=== PATIENT | female | born 1950 | race African-American/Black ===

== ENCOUNTER 2016-12-06 14:34 | Outpatient (CLI) | payer MEDICARE, OTHER | END 2016-12-06 14:35 | disposition home or self-care (01) | DX: E11.9 Type 2 diabetes mellitus without complications (principal); N05.9 Unspecified nephritic syndrome with unspecified morphologic changes ==

== ENCOUNTER 2017-01-03 11:58 | Outpatient (CLI) | payer MEDICARE, OTHER ==
[2017-01-03] MEDS ORDERED: IOPAMIDOL-300 50 ML VIAL PO ONE (13:12)
== END 2017-01-03 11:59 | disposition home or self-care (01) ==
DX: Z85.528 Personal history of other malignant neoplasm of kidney (principal)
CPT/HCPCS: 74150; Q9967

== ENCOUNTER 2017-05-12 19:33 | Outpatient (CLI) | payer MEDICARE, OTHER ==
--- NOTE | 2017-05-14 09:16 | Ultrasound Report ---
TRANSABDOMINAL AND TRANSVAGINAL PELVIC ULTRASOUND WITH TRANSVAGINAL SCAN: 05/12 CLINICAL HISTORY: Patient has postmenopausal bleeding. TECHNIQUE: Transabdominal pelvic ultrasound performed for global evaluation. Transvaginal pelvic ultrasound performed for detailed evaluation. Real-time scanning performed and static images obtained. FINDINGS: Uterus measures 7.4 x 3.6 x 5.3 cm for a volume of 75.1 mL. The uterus is retroverted and retroflexed. Endometrial echo complex is markedly enlarged with a diameter of 20 mm. This thickening of the endometrial complex is abnormal without evidence of enhanced vascularity. Primary considerations for this finding in postmenopausal female is endometrial hyperplasia or endometrial carcinoma. Findings are equivocal in regard to a fibroid along the left side of the inferior myometrium. At present, it measures 1.3 x 1.2 x 1.1 cm and lies adjacent to the posterior aspect of the inferior endometrial complex. Right ovary measures 1.5 x 1.5 x 2.4 cm for a volume of 2.8 mL. Left ovary was not seen. IMPRESSION: 1. UTERUS SHOWS EVIDENCE OF POSTMENOPAUSAL ATROPHY AND IS MILDLY RETROVERTED/ RETROFLEXED. SIGNIFICANTLY THICKENED ENDOMETRIUM IS NOTED WITHOUT ENHANCED VASCULAR FLOW. PRIMARY CONSIDERATIONS INCLUDE ENDOMETRIAL HYPERPLASIA VERSUS ENDOMETRIAL CARCINOMA. OTHER POSSIBILITY IS ENDOMETRIAL HYPERPLASIA SECONDARY TO TAMOXIFEN EFFECT IF PATIENT HAS A PAST HISTORY OF TAKING THIS MEDICATION. 2. EQUIVOCAL FINDING IS NOTED IN REGARD TO A TINY FIBROID ALONG THE LEFT POSTERIOR INFERIOR MYOMETRIUM. IF PRESENT, IT MEASURES 1.3 X 1.2 X 1.1 CM. 3. RIGHT OVARY IS VISUALIZED AND SHOWS NORMAL POSTMENOPAUSAL ATROPHY. LEFT OVARY WAS NOT VISUALIZED. COMMENT: Dr. Zambrano notified Aleja Ocasio's nurse, Cherri, of the above findings and recommendations. This was done on 05/13/2017 at 3:05 p.m. JOB #: [id number] EXT JOB #: [id number] ANAID
== END 2017-05-12 19:34 | disposition home or self-care (01) ==
LOC: DI 19:33
PROVIDERS: ATTEND Nurse Practitioner Family
DX: R93.8 Abnormal findings on diagnostic imaging of other specified body structures (principal); N85.8 Other specified noninflammatory disorders of uterus
CPT/HCPCS: 76830; 76856

== ENCOUNTER 2017-05-20 07:36 | Outpatient (CLI) | payer MEDICARE, OTHER ==
[2017-05-20 14:18] LABS: HEMOGLOBIN A1C 0.62 g/dL
[2017-05-20 14:26] LABS: CALCIUM 9.6 mg/dL (8.5-10.3); CREATININE 1.1 mg/dL (0.4-1.0); POTASSIUM 3.9 mmol/L (3.5-5.0)
== END 2017-05-20 07:37 | disposition home or self-care (01) ==
LOC: LAB.N 07:36
PROVIDERS: ATTEND Internal Medicine Nephrology
DX: N05.9 Unspecified nephritic syndrome with unspecified morphologic changes (principal); E11.9 Type 2 diabetes mellitus without complications
CPT/HCPCS: 36415; 80048; 83036

== ENCOUNTER 2017-12-25 11:22 | Outpatient (CLI) | payer OTHER, MEDICARE ==
--- NOTE | 2017-12-26 10:15 | XRAY Report ---
TWO VIEW LEFT HAND: 12/25/2017 CLINICAL INDICATION: Tenosynovitis. FINDINGS: Frontal and lateral views of the left hand demonstrate no evidence of fracture or dislocation. Mild osteoarthritis is present in the first carpometacarpal joint and interphalangeal joints. No foreign body is seen in the soft tissues. IMPRESSION: MILD OSTEOARTHRITIS. TD: 12/26/2017 10:15
== END 2017-12-25 11:23 | disposition home or self-care (01) ==
LOC: DI 11:22
PROVIDERS: ATTEND Nurse Practitioner Family
DX: M19.042 Primary osteoarthritis, left hand (principal)

== ENCOUNTER 2018-05-25 13:10 | Outpatient (CLI) | payer MEDICARE, OTHER ==
[2018-05-25 19:23] LABS: HB2 TOTAL 15.5 g/dL; HEMOGLOBIN A1C 0.75 g/dL; HEMOGLOBIN A1C % 6.6 % (4.6-6.2)
[2018-05-25 19:50] LABS: ALBUMIN 3.5 g/dL (3.2-5.5); ALBUMIN/GLOBULIN RATIO 1.1 (1.0-2.2); ALKALINE PHOSPHATASE 66 IU/L (42-121); ALT ALANINE AMINOTRANSFERASE 22 IU/L (10-60); AST ASPARTATE AMINOTRANSFERASE 26 IU/L (10-42); BILIRUBIN,TOTAL 0.9 mg/dL (0.2-1.0); BUN - BLOOD UREA NITROGEN 24 mg/dL (6-20); CALCIUM 8.9 mg/dL (8.5-10.3); CARBON DIOXIDE - CO2 27 mmol/L (21-32); CHLORIDE 107 mmol/L (101-111); CHOL/HDL RATIO 5.8 (<4.4); CHOLESTEROL 181 mg/dL; GFR - MDRD 67 (>89); GLUCOSE 105 mg/dL (70-100); HDL CHOLESTEROL 31 mg/dL; LDL CHOLESTEROL,CALCULATED 114 mg/dL; LDL/HDL RATIO 3.7 (<4.4); SODIUM 140 mmol/L (135-145); TOTAL PROTEIN 6.6 g/dL (6.7-8.2); VLDL CHOLESTEROL 36 mg/dL
== END 2018-05-25 13:11 | disposition home or self-care (01) ==
LOC: LAB.N 13:10
PROVIDERS: ATTEND Nurse Practitioner Family
DX: E11.9 Type 2 diabetes mellitus without complications (principal); I10 Essential (primary) hypertension; C64.2 Malignant neoplasm of left kidney, except renal pelvis; E78.1 Pure hyperglyceridemia
CPT/HCPCS: 36415; 80053; 80061; 83036; 83721

== ENCOUNTER 2018-06-07 09:10 | Outpatient (CLI) | payer MEDICARE, OTHER | END 2018-06-07 09:11 | disposition home or self-care (01) | LOC: DI 09:10 | PROVIDERS: ATTEND Nurse Practitioner Family | DX: R01.1 Cardiac murmur, unspecified (principal); I10 Essential (primary) hypertension | CPT/HCPCS: 93306 ==

== ENCOUNTER 2018-08-25 15:52 | Outpatient (CLI) | payer MEDICARE, OTHER ==
--- NOTE | 2018-08-27 11:40 | Mammography Report ---
Reason: SCREENING MAMMO Procedure Date: 08/25/2018 Accession Number: [id number] / [id number] Procedure: MGN - Screening Mammo Dig Bilat CPT Code: FULL RESULT: EXAM: Screening Mammo Dig Bilat DATE: 08/25/2018 4:08 PM CLINICAL HISTORY: 68-year-old female for screening. TECHNIQUE: Bilateral CC and MLO views were obtained. COMPARISON: 06/20/2014, 05/12/2013. FINDINGS: The breasts demonstrate heterogeneously dense fibroglandular parenchyma bilaterally. No suspicious masses, clustered microcalcifications, or regions of architectural distortion are identified. IMPRESSION: Negative examination RECOMMENDATION: Routine annual screening unless otherwise clinically indicated. BIRADS CATEGORY 1: Negative STANDARD QUALIFYING STATEMENTS: 1. This examination was reviewed with the aid of Computer-Aided Detection (CAD). 2. A negative or benign imaging report should not delay biopsy if clinically suspicious findings are present. Consider surgical consultation if warrented. More than 5% of cancers are not identified by imaging. 3. Dense breasts may obscure an underlying neoplasm. 4. This examination was reviewed without the aid of 3D breast imaging (tomosynthesis).
== END 2018-08-25 15:53 | disposition home or self-care (01) ==
LOC: DI.N 15:52
DX: Z12.31 Encounter for screening mammogram for malignant neoplasm of breast (principal)
CPT/HCPCS: 77067

== ENCOUNTER 2018-08-25 20:18 | Outpatient (CLI) | payer MEDICARE, OTHER ==
--- NOTE | 2018-08-25 23:16 | Ultrasound Report ---
Reason: HX OF RENAL CELL CARCINOMA Procedure Date: 08/25/2018 Accession Number: [id number] / [id number] Procedure: US - Retroperitoneal CPT Code: FULL RESULT: EXAM: RENAL ULTRASOUND EXAM DATE: 08/25/2018 08:31 PM. CLINICAL HISTORY: HX OF RENAL CELL CARCINOMA. COMPARISON: RETROPERITONEAL LIMITED 02/08/2016 9:30 AM ABDOMEN W/O 01/03/2017 1:01 PM. TECHNIQUE: Real-time scanning was performed with static images obtained. FINDINGS: Right Kidney: 9.5 x 5.9 x 5.7 cm. Normal echotexture with no stones, contour-deforming masses, or hydronephrosis. Incidental 1.2 cm simple cyst. Left Kidney: 8.6 x 7.6 x 7.2 cm. Postoperative changes of left partial nephrectomy. Incidental 1.4 cm simple cyst in the upper pole. Bladder: Bilateral jets seen. The prevoid bladder volume was 57 cc. The patient was unable to void at this volume. Other: None. IMPRESSION: Postoperative changes of left partial nephrectomy. No solid renal mass identified. RADIA
== END 2018-08-25 20:19 | disposition home or self-care (01) ==
LOC: DI 20:18
PROVIDERS: ATTEND Urology
DX: Z85.528 Personal history of other malignant neoplasm of kidney (principal); Z90.5 Acquired absence of kidney
CPT/HCPCS: 76770

== ENCOUNTER 2019-11-16 13:09 | Outpatient (CLI) | payer MEDICARE, OTHER ==
[2019-11-16 13:50] LABS: BASOPHILS # (AUTO) 0.1 10^3/uL (0.0-0.1); BASOPHILS % (AUTO) 0.5 %; EOSINOPHILS # (AUTO) 0.2 10^3/uL (0.0-0.7); EOSINOPHILS % (AUTO) 1.5 %; HGB - HEMOGLOBIN 13.8 g/dL (12.0-16.0); LYMPHOCYTES # (AUTO) 4.1 10^3/uL (1.5-3.5); MEAN CORPUSCULAR HGB CONC 32.6 g/dL (32.0-36.0); MEAN CORPUSCULAR VOLUME 82.8 fL (81.0-99.0); MEAN PLATELET VOLUME 9.5 fL (7.9-10.8); MONOCYTES # (AUTO) 0.5 10^3/uL (0.0-1.0); MONOCYTES % (AUTO) 4.6 %; NEUTROPHILS # (AUTO) 6.7 10^3/uL (1.5-6.6); NEUTROPHILS % (AUTO) 57.9 %; PLT - PLATELET COUNT 316 10^3/uL (130-450); RED BLOOD COUNT 5.11 10^6/uL (4.20-5.40); RED CELL DISTRIBUTION WIDTH 14.9 % (12.0-15.0); WHITE BLOOD COUNT 11.6 x10^3/uL (4.8-10.8)
[2019-11-16 14:08] LABS: ALBUMIN 4.1 g/dL (3.2-5.5); ALBUMIN/GLOBULIN RATIO 1.2 (1.0-2.2); BILIRUBIN,TOTAL 0.8 mg/dL (0.2-1.0); CALCIUM 9.7 mg/dL (8.5-10.3); CREATININE 1.1 mg/dL (0.4-1.0); TOTAL PROTEIN 7.4 g/dL (6.7-8.2)
== END 2019-11-16 13:10 | disposition home or self-care (01) ==
LOC: LAB 13:09
PROVIDERS: ATTEND Obstetrics & Gynecology
DX: Z01.818 Encounter for other preprocedural examination (principal); N95.0 Postmenopausal bleeding; E11.9 Type 2 diabetes mellitus without complications
CPT/HCPCS: 36415; 80053; 85025; 93005

== ENCOUNTER 2019-11-17 09:14 | Day surgery (SDC) | payer MEDICARE, OTHER ==
--- NOTE | 2019-11-16 15:22 | CONSULTATION NOTE ---
Consultation Report: Anesthesia consult requested by the surgeon. I saw this patient in the pre anesthesia office. 69 year old female without any signs of distress. She reports history of diabetes since last year. Her ECHO from 2018 looks good without any wall motion abnormalities and any valvular dysfunction. EF is 55-60%. She denies any history of chest pain/pressure or SOB at rest or with exertion. She denies any history of heart attacks. She takes insulin, a statin and amlodipine for her BP. SHe also has a history of renal cancer for which she has had a surgical removal of renal mass.
--- NOTE | 2019-11-17 07:40 | HISTORY & PHYSICAL EXAMINATION ---
HPI - History of Present Illness HPI Comment/Other: CC: WWE HPI: Pt is new to this clinic and is here for a WWE. Pt states her last WWE/biopsy was inconclusive and she was told by her provider in [place] that she has a thickened endometrium so she would like a second opinion. Pt reports she is returning to [place], [place] end of December and sees Dr. Tesfaye down there. ...................................................................EMELY Valdez November 16, 2019 11:04 AM Ms Ryan is a 69 yo -->3 female with history of postmenopausal bleeding. She reports that she had some spotting in April/May 2019 while in [place]. She underwent a pelvic us which showed a thickened EMS. US not available to this clinic at present. She underwent an uncomfortable EMB but was told the results were inadequate. She moved back to [place] and startedhaving soem heavier PMB. She has beenusing as much as 4 pads per day. Review of [facility] records show a thickened EMS on us in 2017 with no follow-up. Otherwise without symptoms. Has a hx of renal cancer for which she has undergone a partial nephrectomy. Also with DM, which was improved after her nephrectomy. She reports that she was admitted to in-patient care in [place] with BG levels over 1000. She is currently using 10 units of insulin nightly as well as metformin in the am and at noon. Reports HbA1c improved from about 11% to 6%. She is very proactive with her blood pressure and BG monitoring. She presents a log book showing daily BPs range from 110-128/61-85. BG ranges from 87-107 Allergies: * CINNAMON (Critical) Medications: LANTUS 100 UNIT/ML SUBCUTANEOUS SOLUTION (INSULIN GLARGINE) Take ten units subcutaneously nightly; Route: SUBCUTANEOUS FLUTICASONE PROPIONATE 50 MCG/ACT NASAL SUSPENSION (FLUTICASONE PROPIONATE) Take one spray in each nostril daily; Route: NASAL LISINOPRIL 10 MG ORAL TABLET (LISINOPRIL) Take one tab by mouth daily; Route: ORAL METFORMIN HCL 500 MG ORAL TABLET (METFORMIN HCL) Take one tab by mouth two times a day; Route: ORAL AMLODIPINE BESYLATE 10 MG ORAL TABLET (AMLODIPINE BESYLATE) Take one tab by mouth daily; Route: ORAL ROSUVASTATIN CALCIUM 10 MG ORAL TABLET (ROSUVASTATIN CALCIUM) TAke one tab by mouth daily at bedtime; Route: ORAL HYDROCHLOROTHIAZIDE 25 MG ORAL TABLET (HYDROCHLOROTHIAZIDE) Take one-half tablet by mouth every morning; Route: ORAL CETIRIZINE HCL 10 MG ORAL TABLET (CETIRIZINE HCL) One tablet daily; Route: ORAL Problems: Postmenopausal bleeding (ICD-627.1) (EOS27-G00.0) Systolic heart murmur (ICD-785.2) (EUY03-Z35.1) Abnormal cervical Pap ASCUS (atypical squamous cells undetermined significance) (ICD-795.01) (XZY89-M29.610) Polyp of cervix uteri (ICD-622.7) (HSZ29-Q78.1) Diabetes, Type 2 (ICD-250.00) (QEN77-G95.9) Renal cell carcinoma, left kidney (ICD-189.0) (OLX08-T09.2) Hypertension (ICD-401.9) (NOQ52-U27) Hypertriglyceridemia (ICD-272.1) (AQN76-J36.1) Diverticulosis (ICD-562.10) (LUO63-J19.90) Obesity (ICD-278.00) (MBS41-D91.9) Thoracic disc disease (ICD-722.51) (XLA88-C27.84) Allergic rhinitis (ICD-477.9) (GUZ64-D11.9) Acquired absence of kidney (ICD-V45.73) (RLZ95-F56.5) Acute postoperative renal failure (ICD-997.5) (VFC59-G18.0) Family History Summary: Family History of [place] female <65 for Mother - Entered On: 11/16/2019 Family History of [place] male <55 for Father - Entered On: 11/16/2019 Family History Reviewed: 11/16/2019 Family History of Heart Disease for Mother - Entered On: 07/23/2015 Family History of Diabetes for Mother - Entered On: 07/23/2015 Social History Summary: Patient currently smokes every day. Patient has never used smokeless tobacco. Passive Smoke: Y Alcohol Use: N Drug Use: N HIV/High Risk: N Regular Exercise: N Lives in [facility] with her daughter and grandson. Brother currently staying with her. in the last year after 47 yrs of marriage Son murdered in race driven hate crime in 1988 T: 1/2 ppd-1 ppd E: none D: none Safe at home Social History Reviewed: 11/16/2019 Previous Social History: Patient currently smokes every day. Patient has never used smokeless tobacco. Passive Smoke: Y Alcohol Use: N Drug Use: N HIV/High Risk: N Regular Exercise: N Risk Factors: Smoked Tobacco Use: Current every day smoker Cigarettes: Yes -- 1/2 pack(s) per day, Year Started: 1966 Years Smoked: 44 Smokeless Tobacco Use: Never Passive Smoke Exposure: yes HIV High Risk Behavior: no Caffeine Use: 1 drinks per day Exercise: no Seatbelt Use: 100 % Sun Exposure: occasionally Alcohol Use: no Drug Use: no Questionnaire Would you like to become in the next year? NA postmenopause Vital Signs: Patient Profile: 69 Years Old Female LMP: 11/08/2019 Height: 58.25 inches Weight: 180 pounds BMI: 37.43 BP sittin / 76 Cuff size: regular Vitals Entered By: EMELY Valdez (November 16, 2019 11:04 AM) Meds Reviewed: Done Allergies Reviewed: Done Menstrual History: LMP (date): 11/08/2019 Menstrual flow: 3 days Past Medical History: Reviewed history from 08/17/2018 and no changes required: Current Problems: Diabetes, Type 2 (ICD-250.00) (FZA65-M69.9) Renal cell carcinoma, left kidney (ICD-189.0) (UCW49-G26.2) Hypertension (ICD-401.9) (QBO73-C94) Hypertriglyceridemia (ICD-272.1) (IDH97-E51.1) Diverticulosis (ICD-562.10) (MWQ53-C04.90) Obesity (ICD-278.00) (HUZ84-Q31.9) Thoracic disc disease (ICD-722.51) (CGU93-C90.84) Allergic rhinitis (ICD-477.9) (EFO39-U25.9) Acquired absence of kidney (ICD-V45.73) (ATQ65-I04.5) Acute postoperative renal failure (ICD-997.5) (ZPQ61-R49.0) Polyp of cervix uteri (ICD-622.7) (EXN96-B07.1) Melanocytic nevi of trunk (ICD-216.5) (ISG91-B58.5) Past Surgical History: Reviewed history from 07/19/2016 and no changes required: ?ovarian cyst removed 27% left kidney removed on 07/08/2016 for CA OB Initial Intake Information Race: Black or Marital status: Menstrual Hx/EDC LMP (date): 11/08/2019 Menstrual flow 3 days Past History : 4 Living Children: 3 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 Flowsheet View for Follow-up Visit Weight: 180 Blood pressure: 118 / 76 Smokin/2 Physical Constitutional: alert, no acute distress. Skin: normal color. Head: atraumatic, normocephalic. Cardiovascular: RRR. Respiratory: no respiratory distress, clear to auscultation. Abdomen: nondistended, nontender, no guarding. Neurologic: normal. Psych: affect and mood appropriate, normal interaction, good eye contact. Impression & Recommendations: Problem # 1: Postmenopausal bleeding (ICD-627.1) (VNW94-P28.0) Orders: PRE OP -16137 (CPT-83430) 75180 OV Est Detailed (CPT-19026) Reviewed us in 2017 that showed concerning findings and patient actively bleeding High concern for endometrial hyperplasia vs malignancy Poorly tolerated and inadequate EMB in [place] Recommend urgent hysteroscopy D&C Able to add patient on the 11/17/19 schedule Sent directly to Anesthesia consult Provided with misoprostol 200 mcg PV to use prior to procedure Reviewed risks/benefits/alternative of hysteroscopy D&C/polypectomy We discussed risks, benefits, alternatives. Reviewed all surgical procedures carry risks of bleeding, infection, and damage nearby tissue and organs. Risks include, but are not limited to uterine perforation which may require additonal procedures to contain bleeding, incompletion of the procedure, and blood transfusion. Discussed the risk of infection with blood transfusion is relatively low. Risk of HIV is 1 in 2 million nationwide, risk of hepatitis is 1/million nationwide. Reviewed for possibility of transfusion reaction and possible management with medications. She is provided consent for blood transfusion. Scheduled for anesthesia consutl directly after clinic visit Written informed consent obtained Patient Portal: [id number] PMH/PSH - Past Medical History Cardiovascular: positive: Hypertension, High cholesterol, [place], Valve disorder Respiratory: positive: None Endocrine/Autoimmune: positive: Type 2 diabetes GI: positive: Chronic constipation TUTORING CLINICIAN: positive: None : positive: None HEENT: positive: Chronic vision loss Psych: positive: None, Other Musculoskeletal: positive: Osteoarthritis, Chronic back pain, Other Derm: positive: Other MRSA Hx?: No Social & Family Hx - Social History Does the pt smoke?: Yes Smoking Status: Current every day smoker Does the pt drink ETOH?: No Does the pt have substance abuse?: No Meds/Allgy - Home Medications Home Medications: Ambulatory Orders Medication Instructions Recorded Confirmed Hydrochlorothiazide 12.5 mg PO DAILY 09/02/14 11/16/19 Metformin HCl 500 mg PO BIDWM 09/02/14 11/16/19 Multivitamin [Multiple Vitamins] 1 tab PO DAILY 09/28/15 11/16/19 lisinopriL [Lisinopril] 10 mg PO DAILY 09/28/15 11/16/19 Amlodipine Besylate 10 mg PO DAILY 11/16/19 11/16/19 Fluticasone [Flonase] 1 sprays GRETEL DAILY PRN 11/16/19 11/16/19 Garlic 1 each PO DAILY 11/16/19 11/16/19 Insulin Glargine [Lantus Solostar] 10 unit SQ QPM 11/16/19 11/16/19 [place]-3/Dha/Epa/Fish Oil [[place] 3 1 each PO DAILY 11/16/19 11/16/19 500 Softgel] Rosuvastatin Calcium 10 mg PO QPM 11/16/19 11/16/19 - Allergies Allergies/Adverse Reactions: Allergies Allergy/AdvReac Type Severity Reaction Status Date / Time cinnamon [Cinnamon] Allergy Anaphylaxis Verified 07/29/16 20:27 contact metal agent AdvReac Hives Verified 07/29/16 20:27
[~2019-11-17 09:14] MED LIST: ACETAMINOPHEN 1,000 MG/100 ML 100 ML IV ONE; GABAPENTIN 400 MG CAPSULE ONE
[2019-11-17] MEDS ORDERED: ONDANSETRON 4 MG/2 ML VIAL IVP ONE (09:15)
[2019-11-17] MEDS ORDERED: ePHEDrine 50 MG/ML VIAL IVP ONE (09:15)
[2019-11-17] MEDS ORDERED: MIDAZOLAM 2 MG/2 ML VIAL IVP ONE (09:15)
[2019-11-17] MEDS ORDERED: DEXAMETHASONE 4 MG/ML VIAL IVP ONE (09:15)
[2019-11-17] MEDS ORDERED: fentaNYL 100 MCG/2 ML VIAL IVP ONE (09:15)
[2019-11-17] MEDS ORDERED: LACTATED RINGERS 1,000 ML IV ONE (09:18)
--- NOTE | 2019-11-17 09:55 | ANESTHESIA ---
Pre-Anesthesia VS, & Labs - Diagnosis Thickened endometrium - Procedure hysterscopy, myosure D&C Vital Signs: Temp Pulse Resp BP Pulse Ox 36.3 C L 86 12 116/64 97 11/17/19 09:18 11/17/19 09:18 11/17/19 09:18 11/17/19 09:18 11/17/19 09:18 Height 4 ft 11 in Weight (kg) 81 kg Body Mass Index 37.5 - NPO >8 hours - Is Patient ?: No - Lab Results Lab results reviewed: Yes Home Medications and Allergies Home Medications: Ambulatory Orders Amlodipine Besylate 10 mg PO DAILY 11/16/19 Fluticasone [Flonase] 1 sprays GRETEL DAILY PRN 11/16/19 Garlic 1 each PO DAILY 11/16/19 Insulin Glargine [Lantus Solostar] 10 unit SQ QPM 11/16/19 [place]-3/Dha/Epa/Fish Oil [[place] 3 500 Softgel] 1 each PO DAILY 11/16/19 Rosuvastatin Calcium 10 mg PO QPM 11/16/19 Hydrochlorothiazide 12.5 mg PO DAILY 09/02/14 Metformin HCl 500 mg PO DAILY 09/02/14 Multivitamin [Multiple Vitamins] 1 tab PO DAILY 09/28/15 lisinopriL [Lisinopril] 10 mg PO DAILY 09/28/15 Amlodipine Besylate 10 mg PO DAILY 11/16/19 Fluticasone [Flonase] 1 sprays GRETEL DAILY PRN 11/16/19 Garlic 1 each PO DAILY 11/16/19 Insulin Glargine [Lantus Solostar] 10 unit SQ QPM 11/16/19 [place]-3/Dha/Epa/Fish Oil [[place] 3 500 Softgel] 1 each PO DAILY 11/16/19 Rosuvastatin Calcium 10 mg PO QPM 11/16/19 Allergies/Adverse Reactions: Allergies Allergy/AdvReac Type Severity Reaction Status Date / Time cinnamon [Cinnamon] Allergy Anaphylaxis Verified 07/29/16 20:27 contact metal agent AdvReac Hives Verified 07/29/16 20:27 Anes History & Medical History - Anesthetic History Anesthesia Complications: reports: No previous complications - Medical History Cardiovascular: reports: Hypertension, High cholesterol Pulmonary: reports: None Gastrointestinal: reports: Chronic constipation Urinary: reports: Other (Left partial nephrectomy for cancer) Neuro: reports: None Musculoskeletal: reports: Osteoarthritis, Chronic back pain, Other Endocrine/Autoimmune: reports: Type 2 diabetes Blood Disorders: reports: None Skin: reports: Other Smoking Status: Current every day smoker (1/2-1pk per day) Psychosocial: reports: No issues indicated - Surgical History Urologic: Nephrectomy (Left partial nephrectomy) Results - EKG Results EKG Comparison: Reviewed EKG, Normal EKG - Echo Results Echo Results: Report reviewed Exam General: Alert, Oriented x3, Cooperative, No acute distress Dental: WNL Mouth Openin Fingerbreadth Neck Mobility: Normal Mallampati classification: III Thyromental Distance: 4-6 cm Respiratory: Lungs clear, Normal breath sounds, No respiratory distress, No accessory muscle use Cardiovascular: Regular rate, Normal S1, Normal S2, No murmurs Mental/Cognitive Status: Alert/Oriented X3, Normal for patient Plan Anesthesia Type: General Consent for Procedure(s) Verified and Reviewed: Yes Code Status: Attempt Resuscitation ASA classification: 2-Mild systemic disease Is this case an emergency?: No
[2019-11-17] MEDS ORDERED: LIDOCAINE 1%-EPI 1:100000 20 ML MDV ONE (10:26)
[2019-11-17] MEDS ORDERED: LIDOCAINE 1%-EPI 1:100000 30 ML MDV SUBQ ONE ×2 (11:22)
[2019-11-17] MEDS ORDERED: KETOROLAC 30 MG/ML VIAL IVP PRN (11:56)
[2019-11-17] MEDS ORDERED: oxyCODONE 5 MG TABLET PO PRN (11:56)
--- NOTE | 2019-11-17 12:02 | OPERATIVE REPORT ---
Operative Report - General Procedure Date: 11/17/19 Planned Procedure: Hysteroscopy D&C and possible polypectomy vs myomectomy Pre-Op Diagnosis: Postmenopausal bleeding and thickened endometrium Procedure Performed: Hysteroscopy D&C and polypectomy Post Op Diagnosis: Multple endometrail polyps and nodular implants - Procedure Note Primary Surgeon: Salima Wilson MD Anesthesia Technique: General LMA Pathology: Uterine contents IV Fluids (mL): 500 Estimated Blood Loss (mL): 5 Urine Output (mL): 100 Indications: Patient is a 69 yo with 3 years history of thickened endometrium and worsening postmenopausal bleeding. Had undergone endometrial biopsy at an outside facility. Patient reports it returned with insufficient tissue. She is here for hysteroscopic exploration and endometrial sampling. Findings: Thick gelatinous blood released from uterine cavity with passage of sound. Uterus sounds to 9 cm. Multiple endometrial polyps with a central large polyp and 3+ peripheral polyps. Nodular implants on right anterolateral aspect of the uterine cavity wall resistant to excision with morcellator. Additional nodular implants on left aterolateral aspect of cavity. Complications: none - Other Other Information/Narrative: Risks benefits and alternatives to the procedure were reviewed. Consent was again confirmed. Patient was taken to the operating room where she underwent general anesthesia. She was positioned in dorsolithotomy position with legs resting in yellowfin stirrups. She was prepped and draped in the usual sterile fashion. Preoperative antibiotics were not indicated. Preoperative checklist was performed. Exam under anesthesia was performed. Speculum was placed in the vagina and the cervix was visualized. Single-tooth tenaculum was placed at the anterior cervical lip. Paracervical block was administered using a total of 20 cc of 1% lidocaine with epinephrine was injected at the 4:00 and 8:00 positions lateral to the portio of the cervix. The cervical os was serially dilated with Hegar dilators to accommodate the caliber of the diagnostic hysteroscope. Uterus sounded to 9 cm. Passage of thick, tar lick blood products passed from cervix with removal of uterine ssound. The hysteroscope was inserted and findings were noted as above. The hysteroscopic morcellator was inserted through the operative port. The intrauterine polyps were morcellated under direct visualization. Hysteroscope was removed. Sharp curettage D&C was performed with sharp curette in an attempt to loosen nodule. Hysteroscope was reinserted and additonal attempt to smaple nodule was performed. Most of the right anterolateral nodule was removed. The left sided nodule remains in place. Uterine cavity was smooth at close of the procedure save a residual nodular implants. All instruments were removed from the uterus. Tenaculum was removed. Tenaculum sites were noted to be hemostatic. All instruments were removed from the vagina. Procedure was well-tolerated without complication. Fluid deficit: 550 cc NS
[2019-11-17] MEDS ORDERED: oxyCODONE 5 MG TABLET ONE (13:01)
[2019-11-17 13:24] VITALS: BP 117/73
== END 2019-11-17 09:15 | disposition home or self-care (01) ==
LOC: SDS 09:14
PROVIDERS: ATTEND Obstetrics & Gynecology
PROC: 0UDB7ZZ Extraction of Endometrium, Via Natural or Artificial Opening (ICD-10-PCS; 2019-11-17)
PROC: 0UB98ZZ Excision of Uterus, Via Natural or Artificial Opening Endoscopic (ICD-10-PCS; principal; 2019-11-17 10:30)
DX: N84.0 Polyp of corpus uteri (principal); N80.0 Endometriosis of uterus; N95.0 Postmenopausal bleeding; E11.9 Type 2 diabetes mellitus without complications; I10 Essential (primary) hypertension; F17.210 Nicotine dependence, cigarettes, uncomplicated; E78.1 Pure hyperglyceridemia; E66.9 Obesity, unspecified; Z85.528 Personal history of other malignant neoplasm of kidney; Z90.5 Acquired absence of kidney; Z79.4 Long term (current) use of insulin; Z79.899 Other long term (current) drug therapy; Z68.37 Body mass index [BMI] 37.0-37.9, adult
CPT/HCPCS: 58558; 93005; A9270; J0131; J7120

== ENCOUNTER 2019-12-16 15:23 | Outpatient (CLI) | payer MEDICARE, OTHER ==
--- NOTE | 2019-12-28 09:31 | Mammography Report ---
Reason: ROUTINE MAMMO Procedure Date: 12/16/2019 Accession Number: [id number] / [id number] Procedure: MGN - Screening Mammo w/Herb CPT Code: Final Report FULL RESULT: EXAM: Screening Mammo w/Herb DATE: 12/16/2019 3:50 PM CLINICAL HISTORY: Screening encounter. Family history of breast cancer in a sister at the age of 42. TECHNIQUE: (B) - Bilateral CC and MLO views were obtained. Right laterally exaggerated CC view is obtained. COMPARISON: 08/25/2018 through 05/12/2013. PARENCHYMAL PATTERN: (A) - The breast(s) demonstrate(s) scattered fibroglandular densities. FINDINGS: Approximately 5 cm deep to the nipple of the right breast in the lateral central breast cone, 9:00 axis is question of interval increase in faint calcifications. These should be further clarified with spot magnification views and ultrasound if applicable. There are no suspicious masses, calcifications, or areas of distortion of the left breast. IMPRESSION: Incomplete examination. BI-RADS category 0. RECOMMENDATION: (ADDMU) - Additional views using both Mammography and Ultrasound recommended. Right breast. BI-RADS CATEGORY: (0) - Incomplete Examination - need additional evaluation. STANDARD QUALIFYING STATEMENTS: 1. This examination was not reviewed with the aid of Computer-Aided Detection (CAD). 2. A negative or benign imaging report should not preclude biopsy if clinically suspicious findings are present. 3. Dense breasts may obscure an underlying neoplasm. 4. This examination was reviewed with the aid of 3D breast imaging (tomosynthesis).
== END 2019-12-16 15:24 | disposition home or self-care (01) ==
LOC: DI.N 15:23
PROVIDERS: ATTEND Obstetrics & Gynecology
DX: Z12.31 Encounter for screening mammogram for malignant neoplasm of breast (principal); R92.1 Mammographic calcification found on diagnostic imaging of breast; Z80.3 Family history of malignant neoplasm of breast
CPT/HCPCS: 77063; 77067

== ENCOUNTER 2020-01-05 06:07 | Inpatient (IN) | payer MEDICARE, OTHER ==
--- NOTE | 2020-01-05 03:16 | HISTORY & PHYSICAL EXAMINATION ---
HPI - History of Present Illness HPI Comment/Other: CC: Pre-Op LAV HPI: Pt is here today for a pre-op appointment for a hysterectomy ...................................................................EMELY Valdez January 03, 2020 3:15 PM Ms Ryan is a 69 yo -->3 female with history of postmenopausal bleeding. Seen on 12/14/19 for follow-up after post op hysteroscopy exam. Another provider had recommended Mirena placement after recurrent polyp formation. She has had several hysteroscopy D&C's for recurrent polyps and postmenopasual bleeding. . Patient wasreticent to have IUD placed and desired hysterectomy as definitive management. Has had several polyps over the last few years and has had more than one D&C and recurrent EMB. She is here for preop evaluation. No change in health hx since time of prior exam. Current Allergies: * CINNAMON (Critical) Current Meds: LANTUS 100 UNIT/ML SUBCUTANEOUS SOLUTION (INSULIN GLARGINE) Take ten units subcutaneously nightly; Route: SUBCUTANEOUS FLUTICASONE PROPIONATE 50 MCG/ACT NASAL SUSPENSION (FLUTICASONE PROPIONATE) Take one spray in each nostril daily; Route: NASAL LISINOPRIL 10 MG ORAL TABLET (LISINOPRIL) Take one tab by mouth daily; Route: ORAL METFORMIN HCL 500 MG ORAL TABLET (METFORMIN HCL) Take one tab by mouth two times a day; Route: ORAL AMLODIPINE BESYLATE 10 MG ORAL TABLET (AMLODIPINE BESYLATE) Take one tab by mouth daily; Route: ORAL ROSUVASTATIN CALCIUM 10 MG ORAL TABLET (ROSUVASTATIN CALCIUM) TAke one tab by mouth daily at bedtime; Route: ORAL HYDROCHLOROTHIAZIDE 25 MG ORAL TABLET (HYDROCHLOROTHIAZIDE) Take one-half tablet by mouth every morning; Route: ORAL CETIRIZINE HCL 10 MG ORAL TABLET (CETIRIZINE HCL) One tablet daily; Route: ORAL Allergies: * CINNAMON (Critical) Medications: LANTUS 100 UNIT/ML SUBCUTANEOUS SOLUTION (INSULIN GLARGINE) Take ten units subcutaneously nightly; Route: SUBCUTANEOUS FLUTICASONE PROPIONATE 50 MCG/ACT NASAL SUSPENSION (FLUTICASONE PROPIONATE) Take one spray in each nostril daily; Route: NASAL LISINOPRIL 10 MG ORAL TABLET (LISINOPRIL) Take one tab by mouth daily; Route: ORAL METFORMIN HCL 500 MG ORAL TABLET (METFORMIN HCL) Take one tab by mouth two times a day; Route: ORAL AMLODIPINE BESYLATE 10 MG ORAL TABLET (AMLODIPINE BESYLATE) Take one tab by mouth daily; Route: ORAL ROSUVASTATIN CALCIUM 10 MG ORAL TABLET (ROSUVASTATIN CALCIUM) TAke one tab by mouth daily at bedtime; Route: ORAL HYDROCHLOROTHIAZIDE 25 MG ORAL TABLET (HYDROCHLOROTHIAZIDE) Take one-half tablet by mouth every morning; Route: ORAL CETIRIZINE HCL 10 MG ORAL TABLET (CETIRIZINE HCL) One tablet daily; Route: ORAL Problems: Preop exam (ICD-V72.84) (KOM75-I63.818) Abnormal mammogram, right breast (ICD-793.80) (CXS37-J68.8) Surgical counseling visit (ICD-V65.8) (VZL91-Q34.89) Screening for breast cancer (ICD-V76.10) (CQT58-O43.39) Postmenopausal bleeding (ICD-627.1) (OFZ50-E69.0) Systolic heart murmur (ICD-785.2) (PKA72-G01.1) Abnormal cervical Pap ASCUS (atypical squamous cells undetermined significance) (ICD-795.01) (KNX23-B58.610) Polyp of cervix uteri (ICD-622.7) (GSD97-W65.1) Diabetes, Type 2 (ICD-250.00) (XII77-S80.9) Renal cell carcinoma, left kidney (ICD-189.0) (PBL45-X79.2) Hypertension (ICD-401.9) (CJV46-Z97) Hypertriglyceridemia (ICD-272.1) (GYG45-M21.1) Diverticulosis (ICD-562.10) (WSK04-W02.90) Obesity (ICD-278.00) (VXI62-O18.9) Thoracic disc disease (ICD-722.51) (HLN76-T59.84) Allergic rhinitis (ICD-477.9) (GAN28-E51.9) Acquired absence of kidney (ICD-V45.73) (SSF25-Y43.5) Acute postoperative renal failure (ICD-997.5) (WOD93-S75.0) Risk Factors: Smoked Tobacco Use: Current every day smoker Cigarettes: Yes -- 1/2 pack(s) per day, Year Started: 1966 Years Smoked: 44 Smokeless Tobacco Use: Never Passive Smoke Exposure: yes HIV High Risk Behavior: no Caffeine Use: 1 drinks per day Exercise: no Seatbelt Use: 100 % Sun Exposure: occasionally Alcohol Use: no Drug Use: no Vital Signs: Patient Profile: 69 Years Old Female Height: 58.25 inches BP sittin / 76 Cuff size: regular Vitals Entered By: EMELY Valdez (January 03, 2020 3:37 PM) Meds Reviewed: Done Allergies Reviewed: Done Past Medical History: Current Problems: Diabetes, Type 2 (ICD-250.00) (BVB97-V17.9) Renal cell carcinoma, left kidney (ICD-189.0) (ZKT07-S56.2) Hypertension (ICD-401.9) (XYA48-T78) Hypertriglyceridemia (ICD-272.1) (BID20-Q18.1) Diverticulosis (ICD-562.10) (RXF37-X93.90) Obesity (ICD-278.00) (XUG87-R17.9) Thoracic disc disease (ICD-722.51) (XYF73-A28.84) Allergic rhinitis (ICD-477.9) (IOP18-I04.9) Acquired absence of kidney (ICD-V45.73) (NDS05-F28.5) Acute postoperative renal failure (ICD-997.5) (SPL57-U63.0) Polyp of cervix uteri (ICD-622.7) (YIC23-G66.1) Melanocytic nevi of trunk (ICD-216.5) (YQI47-W97.5) Past Surgical History: ?ovarian cyst removed 27% left kidney removed on 07/08/2016 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 Physical Constitutional: alert, no acute distress, well hydrated, well developed. Skin: normal turgor, normal color, no rashes. Head: atraumatic, normocephalic. Cardiovascular: RRR. Respiratory: no respiratory distress, clear to auscultation. Abdomen: nondistended, nontender, no guarding. Neurologic: normal. Psych: affect and mood appropriate, normal interaction. Impression & Recommendations: Preop examination for total vaginal hysterectomy and bilateral salpingectomy. We discussed risks, benefits, alternatives. Reviewed all surgical procedures carry risks of bleeding, infection, and damage nearby tissue and organs. Discussed the risk of infection with blood transfusion is relatively low. Risk of HIV is 1 in 2 million nationwide, risk of hepatitis is 1/million nationwide. Reviewed for possibility of transfusion reaction and possible management with medications. She is provided consent for blood transfusion. Reviewed that anatomically speaking that the vagina is full of bacteria. We cannot fully sterilized the vagina, nor would we want to. When the incision is made to release the uterus from the abdomen, a pathway for bacteria into the otherwise sterile abdominal cavity is created. For this reason we will give her IV antibiotics. She denies any allergies to antibiotics. We discussed the anatomical proximity of other organs near the uterus including but not limited to the bladder, ureters, and bowel. As surgeons, we used a number of surgical to techniques to avoid damaging any of these other organs. We reviewed, that despite her best efforts, sometimes injury occurs to these org ans. We discussed that this may cause complicated post operative course. We also discussed the possibility of converting to an open or laparoscopic procedure. She provided consent to all of the above. We will proceed to surgery with scheduled operating room date. Patient Portal: [id number] Current Allergies: * CINNAMON (Critical) Current Meds: LANTUS 100 UNIT/ML SUBCUTANEOUS SOLUTION (INSULIN GLARGINE) Take ten units subcutaneously nightly; Route: SUBCUTANEOUS FLUTICASONE PROPIONATE 50 MCG/ACT NASAL SUSPENSION (FLUTICASONE PROPIONATE) Take one spray in each nostril daily; Route: NASAL LISINOPRIL 10 MG ORAL TABLET (LISINOPRIL) Take one tab by mouth daily; Route: ORAL METFORMIN HCL 500 MG ORAL TABLET (METFORMIN HCL) Take one tab by mouth two times a day; Route: ORAL AMLODIPINE BESYLATE 10 MG ORAL TABLET (AMLODIPINE BESYLATE) Take one tab by mouth daily; Route: ORAL ROSUVASTATIN CALCIUM 10 MG ORAL TABLET (ROSUVASTATIN CALCIUM) TAke one tab by mouth daily at bedtime; Route: ORAL HYDROCHLOROTHIAZIDE 25 MG ORAL TABLET (HYDROCHLOROTHIAZIDE) Take one-half tablet by mouth every morning; Route: ORAL CETIRIZINE HCL 10 MG ORAL TABLET (CETIRIZINE HCL) One tablet daily; Route: ORAL PMH/PSH - Past Medical History Cardiovascular: positive: Hypertension, High cholesterol, [place], Valve disorder Respiratory: positive: None Neuro: positive: None Endocrine/Autoimmune: positive: Type 2 diabetes GI: positive: Chronic constipation CONFIGURATION MANAGEMENT ADMINISTRATOR: positive: None : positive: Other HEENT: positive: Chronic vision loss Psych: positive: Other Musculoskeletal: positive: Osteoarthritis, Chronic back pain, Other Derm: positive: Other MRSA Hx?: No - Past Surgical History /CONFIGURATION MANAGEMENT ADMINISTRATOR: positive: Dilation and currettage, Other Cardiovascular: Social & Family Hx - Social History Does the pt smoke?: Yes Smoking Status: Current every day smoker (1/2-1pk per day) Does the pt drink ETOH?: No Does the pt have substance abuse?: No Meds/Allgy - Home Medications Home Medications: Ambulatory Orders Medication Instructions Recorded Confirmed Hydrochlorothiazide 12.5 mg PO DAILY 09/02/14 12/28/19 Metformin HCl 500 mg PO DAILY 09/02/14 12/28/19 Multivitamin [Multiple Vitamins] 1 tab PO DAILY 09/28/15 12/28/19 lisinopriL [Lisinopril] 10 mg PO DAILY 09/28/15 12/28/19 Amlodipine Besylate 10 mg PO DAILY 11/16/19 12/28/19 Fluticasone [Flonase] 1 sprays GRETEL DAILY PRN 11/16/19 12/28/19 Garlic 1 each PO DAILY 11/16/19 12/28/19 Insulin Glargine [Lantus Solostar] 10 unit SQ QPM 11/16/19 12/28/19 [place]-3/Dha/Epa/Fish Oil [[place] 3 1 each PO DAILY 11/16/19 12/28/19 500 Softgel] Rosuvastatin Calcium 10 mg PO QPM 11/16/19 12/28/19 - Allergies Allergies/Adverse Reactions: Allergies Allergy/AdvReac Type Severity Reaction Status Date / Time cinnamon [Cinnamon] Allergy Anaphylaxis Verified 07/29/16 20:27 contact metal agent AdvReac Hives Verified 07/29/16 20:27
[2020-01-05] MEDS ORDERED: MIDAZOLAM 2 MG/2 ML VIAL IVP ONE (06:08)
[2020-01-05] MEDS ORDERED: LIDOCAINE-MPF 2% 5 ML VIAL IM ONE (06:08)
[2020-01-05] MEDS ORDERED: NEOSTIGMINE 1 MG/1 ML 10 ML MDV IVP ONE (06:08)
[2020-01-05] MEDS ORDERED: fentaNYL 100 MCG/2 ML VIAL IVP ONE (06:08)
[2020-01-05] MEDS ORDERED: ONDANSETRON 4 MG/2 ML VIAL IVP ONE (06:08)
[2020-01-05] MEDS ORDERED: DEXAMETHASONE 4 MG/ML VIAL IVP ONE (06:08)
[2020-01-05] MEDS ORDERED: GLYCOPYRROLATE 1 MG/5 ML VIAL IVP ONE (06:08)
[2020-01-05] MEDS ORDERED: CEFAZOLIN SODIUM IN 0.9 % NACL 2 GM/100 ML BAG IV ONE (06:16)
[2020-01-05] MEDS ORDERED: PHENAZOPYRIDINE 100 MG TABLET PO ONE (06:17)
[2020-01-05] MEDS ORDERED: ACETAMINOPHEN 1,000 MG/100 ML 100 ML IV ONE (06:19)
[2020-01-05] MEDS ORDERED: CELECOXIB 100 MG CAPSULE PO ONE (06:20)
[2020-01-05] MEDS ORDERED: GABAPENTIN 400 MG CAPSULE ONE (06:20)
[2020-01-05] MEDS ORDERED: LACTATED RINGERS 1,000 ML IV ONE ×3 (07:00→14:28)
--- NOTE | 2020-01-05 07:11 | ANESTHESIA ---
Pre-Anesthesia VS, & Labs - Diagnosis post-menopausal bleeding, thickened endometrium, endometrial polyps - Procedure [facility] Vital Signs: Temp Pulse Resp BP Pulse Ox 36.4 C L 86 18 132/89 H 97 01/05/20 06:45 01/05/20 06:45 01/05/20 06:45 01/05/20 06:45 01/05/20 06:45 Height 4 ft 11 in Weight (kg) 83.1 kg Body Mass Index 37.5 - NPO >8 hours Last Fluid Intake: sips w meds at 0645 - Is Patient ?: No - Lab Results Lab results reviewed: Yes Home Medications and Allergies Hydrochlorothiazide 12.5 mg PO DAILY 09/02/14 Metformin HCl 500 mg PO DAILY 09/02/14 Multivitamin [Multiple Vitamins] 1 tab PO DAILY 09/28/15 lisinopriL [Lisinopril] 10 mg PO DAILY 09/28/15 Amlodipine Besylate 10 mg PO DAILY 11/16/19 Fluticasone [Flonase] 1 sprays GRETEL DAILY PRN 11/16/19 Garlic 1 each PO DAILY 11/16/19 Insulin Glargine [Lantus Solostar] 10 unit SQ QPM 11/16/19 [place]-3/Dha/Epa/Fish Oil [[place] 3 500 Softgel] 1 each PO DAILY 11/16/19 Rosuvastatin Calcium 10 mg PO QPM 11/16/19 Allergies/Adverse Reactions: Allergies Allergy/AdvReac Type Severity Reaction Status Date / Time cinnamon [Cinnamon] Allergy Anaphylaxis Verified 07/29/16 20:27 contact metal agent AdvReac Hives Verified 01/05/20 06:55 Anes History & Medical History - Anesthetic History Anesthesia Complications: reports: No previous complications Family history of Anesthesia Complications: Denies Family history of Malignant Hyperthermia: Denies - Medical History Cardiovascular: reports: Hypertension, High cholesterol, [place], Valve disorder Pulmonary: reports: None Gastrointestinal: reports: Chronic constipation Urinary: reports: Other Neuro: reports: None Musculoskeletal: reports: Osteoarthritis, Chronic back pain, Other Endocrine/Autoimmune: reports: Type 2 diabetes Blood Disorders: reports: None Skin: reports: Other Smoking Status: Current every day smoker (1/2-1pk per day) - Surgical History Cardiothoracic:  Urologic: Nephrectomy (partial) Gynecologic: Dilation and currettage, Other Exam General: Alert, Oriented x3, Cooperative Dental: WNL Mouth Openin Fingerbreadth Neck Mobility: Normal Mallampati classification: II Thyromental Distance: greater than 6 cm Respiratory: Lungs clear, Normal breath sounds Cardiovascular: Regular rate Neurological: Normal speech Mental/Cognitive Status: Alert/Oriented X3, Normal for patient Cognitive Status: Within normal limits Plan Anesthesia Type: General Consent for Procedure(s) Verified and Reviewed: Yes Code Status: Attempt Resuscitation ASA classification: 2-Mild systemic disease Is this case an emergency?: No
[2020-01-05 07:24] LABS: BASOPHILS # (AUTO) 0.1 10^3/uL (0.0-0.1); BASOPHILS % (AUTO) 0.5 %; EOSINOPHILS # (AUTO) 0.4 10^3/uL (0.0-0.7); EOSINOPHILS % (AUTO) 3.5 %; HGB - HEMOGLOBIN 12.6 g/dL (12.0-16.0); LYMPHOCYTES # (AUTO) 3.7 10^3/uL (1.5-3.5); LYMPHOCYTES % (AUTO) 35.6 %; MEAN CORPUSCULAR HEMOGLOBIN 27.2 pg (27.0-31.0); MEAN CORPUSCULAR HGB CONC 32.1 g/dL (32.0-36.0); MEAN CORPUSCULAR VOLUME 84.7 fL (81.0-99.0); MEAN PLATELET VOLUME 10.1 fL (7.9-10.8); MONOCYTES # (AUTO) 0.6 10^3/uL (0.0-1.0); NEUTROPHILS # (AUTO) 5.5 10^3/uL (1.5-6.6); PLT - PLATELET COUNT 293 10^3/uL (130-450); RED BLOOD COUNT 4.63 10^6/uL (4.20-5.40); WHITE BLOOD COUNT 10.3 x10^3/uL (4.8-10.8)
[2020-01-05] MEDS ORDERED: METHYLENE BLUE 0.5% 50 MG/10 ML AMPULE ONE ×2 (07:26→07:30)
[2020-01-05] MEDS ORDERED: LIDOCAINE 1%-EPI 1:100000 20 ML MDV ONE ×2 (07:26→07:54)
[2020-01-05] MEDS ORDERED: VASOPRESSIN 20 UNIT/ML VIAL ONE (07:27)
[2020-01-05] MEDS ORDERED: BUPIVACAINE 0.25% PF 30 ML VIAL ONE (07:27)
[2020-01-05] MEDS ORDERED: METHYLENE BLUE 0.5% 50 MG/10 ML AMPULE IR ONE (08:36)
[2020-01-05] MEDS ORDERED: BUPIVACAINE 0.25% PF 30 ML VIAL SUBQ ONE (08:38)
[2020-01-05] MEDS ORDERED: LIDOCAINE 1%-EPI 1:100000 20 ML MDV SUBQ ONE (08:38)
--- NOTE | 2020-01-05 14:43 | OPERATIVE REPORT ---
Operative Report - General Procedure Date: 01/05/20 Pre-Op Diagnosis: Partial thickness enterotomy Procedure Performed: Laparoscopic oversewing of partial thickness enterotomy Post Op Diagnosis: same - Procedure Note Primary Surgeon: Ab Richter MD Secondary Surgeon: MD Katie Anesthesia Provider: Michael Carrillo CRNA Anesthesia Technique: General ET tube Pathology: none Estimated Blood Loss (mL): 0 Indications: Intraoperative consult for suspected bowel injury. During extensive laparoscopic lysis of adhesions a small area of deserosalization versus enterotomy was noted. It is partial thickness on my inspection with need for repair to prevent it from becoming full thickness. As patient is already under anesthesia and on the table, we proceeded with repair of this injury which is incidental to her significant adhesions. Findings: 3mm segment of partial thickness injury to small bowel wall Complications: none - Other Other Information/Narrative: I was asked to evaluate a patient in the operative room due to concern for enterotomy during extensive lysis of adhesions. The area of concern was in a segment still adherent to the anterior abdominal wall as it was left in place for evaluation and repair. There was a focal area of exposed mucosa without full thickness injury. This was repaired by oversewing of the injured area using 3-0 silk in a Lembert fashion. Sutures were secured using an extracorporeal knot pushed. No remaining exposed mucosa nor stricture of the bowel segment was noted upon completion. I was also asked to examine the left ureter which does not appear to have a true injury but was skeletonized along a segment with a thinned fibrous coat. No changes to urine in silvestre. Plan remains to perform a cystoscopy at the end and consideration of stent placement. Patient remains in the operating room with primary team for completion of her procedure; she does not require change in post op management from my perspective other than precautions for bowel leak or stricture.
--- NOTE | 2020-01-05 15:37 | OPERATIVE REPORT ---
Operative Report - General Admit Date: 01/06/20 Planned Procedure: Laparoscopic assisted vaginal hysterectomy with bilateral salpingingo- oophorectomy and cystoscopy Pre-Op Diagnosis: Recurrent endometrial polyps and postmenopausal bleeding Procedure Performed: Laparoscopic assisted vaginal hysterectomy with bilateral salpingectomy. Ovaries were left in situ. Lysis of thick adhesions. Repair of superficial serosal bowel injury (performed by Dr. Richter). Cystoscopy. Post Op Diagnosis: Same and extensive adhesive disease. - Procedure Note Primary Surgeon: Salima Wilson MD Secondary Surgeon: Ernesto Mart MD and Chester Richter MD Anesthesia Provider: Abby Carrillo CRNA Anesthesia Technique: General ET tube Pathology: Uterus, tubes, and cervix IV Fluids (mL): 1,800 Estimated Blood Loss (mL): 200 Urine Output (mL): 550 Indications: Patient is a 69-year-old -0-0-3 with history of recurrent endometrial polyps and postmenopausal bleeding desires definitive surgical management with hysterectomy. Medical history is significant for renal cancer with left-sided partial nephrectomy. Findings: Extensive adhesive disease with bowel and omentum to thickly adherent to the anterior abdominal wall at multiple points. Left aspect of pelvic sidewall with adhesive changes and surgical alteration of anatomy. Normal appearing uterus. Normal appearing right ovary. Left ovary difficulty to identify due to adhesions. Cystocopy performed post procedure showed bilateral ureteral jets and bladder devoid of suture. Complications: Superfical serosal bowel injury; repaired. - Other Other Information/Narrative: Risks benefits and alternatives of the procedure were reviewed. Consent was again confirmed. Patient was brought to the operating room and underwent general anesthesia. She was placed in dorsal lithotomy position with legs resting in yellowfin stirrups. SCDs were in place and activated. Cefazolin 2 g IV was administered prior to start of procedure. She was prepped and draped in the usual sterile fashion. Surgical timeout was performed. Bimanual exam was performed. Sterile speculum was placed and [employer] uterine manipulator was placed, confirming that the inner cup was flush with the vaginal fornices. The base of the umbilicus was anesthetized with intradermal injection of 0.25% Marcaine. A 5 mm skin incision was made with a scalpel. A 5 mm blunt trocar was inserted under direct visualization using Visiport. Once the port was confirmed to be placed intraperitoneally, the abdomen was insufflated to 15 mmHg with CO2 gas Exploration of the abdomen and pelvis was confirmed that no injury was sustained with placement of the trocar. Two additional 5 mm ports were placed in the right and left lower quadrants, taking care to avoid the epigastric arteries, while under direct visualization via laparoscopic guidance. The abdomen was explored with the laparoscope, with findings as noted. Because of the extensive adhesions and need to alternate ports for optimal camera placement, a fourth 5 mm port was placed in the left lower quadrant. Lysis of adhesions was undertaken with slow, deliberate dissection using mainly blunt and sharp dissection to avoid thermal bowel injury. After an adequate portion of the adhesions had been released enough that there was access to the pelvis and uterus, the bowel was examined for possible injury. A small serosal injury was noted and Dr. Richter of General Surgery was consulted for the repair. Please see her operative report for details of that aspect of the procedure. We then proceeded with the hysterectomy portion of the procedure. The left pelvic sidewall had been surgically manipulated and surgical landmarks were obscurred. We thus started with the right side of the hysterectomy. The right Fallopian tube was grasped and elevated and resected from the underlying mesosalpinx with the LigaSure bipolar sealing and cutting device. While oophorectomy was intended, the ovary was thickly adherent to the pelvic sidewall and the ureter was not readily identify as remote from the infundibulopelvic ligament. Given that the ovary appeared normal and there was no pressing clinical indication for excision, we opted to forego the oophorectomy to reduce intra-oprative anesthesia exposure. The uterine ovarian ligament was transected using the LigaSure bipolar device. A bladder flap was mobilized by dividing the round ligaments using the bipolar cutting forceps, and the peritoneum on the vesicouterine fold was incised to mobilize the bladder. Once the colpotomy ring was skeletonized and in position, the uterine arteries were sealed using the bipolar forceps at the level of the colpotomy ring. The left pelvic sidwall had been obilterated and the presence of the ureter within the adhesion provied difficult to identify. Given the amount fo adhesions from the sidewall to the posterior aspect of the uterus, care was taken to open the retorperitoneal space and dissect through the adventitia until the ureter was unequivocally identified. The peristalsis of the ureteral structure was iden tified. Its path was followed through to it location within the operative field and was avoided. We then proceeded with the salpingectomy and sealing and transection of uterine pedicles down to the uterine artery as described above. The left ovary was not clearly identified within the adhesions and was left intact as to avoid risk of complications with further exploration/dissection. Colpotomy was performed using monopolar hook, resulting in separation of the uterus and attached tubes. The uterus and tubes were then delivered through the vagina. Attention was then turned to the vaginal cuff closure. The abdomen was desufflated and the abdominal surgical field was covered with sterile towels. A weighted speculum was placed in the vagina. Long Allis clamps were used to grasp the edges of the peritoneum. The peritoneum was closed with a running Pursestring suture using 2-0 Vicryl. The uterosacral ligaments were then grasped with long Allis clamps bilaterally. 0 Vicryl suture was used to transfix the uterosacral ligaments and then fix them to the anterior and posterior aspects of the vaginal cuff bilaterally, thus fixing the uterosacral ligaments of the vaginal fornices. The vaginal cuff closure was then closed in a transverse fashion using interrupted [id number] suture using 0 Vicryl. Good hemostasis was noted. Cystoscopy was performed. The bladder was intact. Ureteral jet on the left was noted with passage of pyridium stained urine. The right showed ureteral activity without an active jet. The sutures of the left aspect of the vaginal cuff/uterosacral ligaments were released. Ureteral jets were observed bilaterally with passage of pyridium stained urine. The vaginal cuff was evaluated closure was deemed adequate. We again returned to the abdominal surgical field after removing outer gloves. The abdomen was again insufflated. The vaginal cuff was visualized internally and noted to have good hemostasis. The left lateral pelvic sidewall was raw in appearance but had no active bleeding. In an abundance of caution, Surgicel was applied to the left lateral pelvic sidewall as well as to the vaginal cuff. Good hemostasis was noted. The abdomen was partially desufflated. Pedicles were observed under decreased pressure and good hemostasis was again confirmed.Risks benefits and alternatives of the procedure were reviewed. Consent was again confirmed. Patient was brought to the operating room and underwent general anesthesia. She was placed in dorsal lithotomy position with legs resting in yellowfin stirrups. SCDs were in place and activated. Cefazolin 2 g IV was administered prior to start of procedure. She was prepped and draped in the usual sterile fashion. Surgical timeout was performed. Bimanual exam was performed. Sterile speculum was placed and [employer] uterine manipulator was placed, confirming that the inner cup was flush with the vaginal fornices. The base of the umbilicus was anesthetized with intradermal injection of 0.25% Marcaine. A 5 mm skin incision was made with a scalpel. A 5 mm blunt trocar was inserted under direct visualization using Visiport. Once the port was confirmed to be placed intraperitoneally, the abdomen was insufflated to 15 mmHg with CO2 gas Exploration of the abdomen and pelvis was confirmed that no injury was sustained with placement of the trocar. Two additional 5 mm ports were placed in the right and left lower quadrants, taking care to avoid the epigastric arteries, while under direct visualization via laparoscopic guidance. The abdomen was explored with the laparoscope, with findings as noted. The right Fallopian tube was grasped and elevated and resected from the underlying mesosalpinx with the LigaSure bipolar sealing and cutting device. The uterine ovarian ligament was transected using the LigaSure bipolar device. A bladder flap was mobilized by dividing the round ligaments using the bipolar cutting forceps, and the peritoneum on the vesicouterine fold was incised to mobilize the bladder. Once thecolpotomy ring was skeletonized and in position, the uterine arteries were sealed using the bipolar forceps at the level of the colpotomy ring. This was repeated on the left aspect of the uterus in the same manner. Colpotomy was performed using t he harmonic scalpel, resulting in separation of the uterus and attached tubes. The right tube had been transected and removed separately through a lateral port to improve visualization. The uterus and left tube were then delivered through the vagina. Attention was then turned to the vaginal cuff closure. The abdomen was desufflated and the abdominal surgical field was covered with sterile towels. A weighted speculum was placed in the vagina. Long Allis clamps were used to grasp the edges of the peritoneum. The peritoneum was closed with a running Pursestring suture using 2-0 Vicryl. The uterosacral ligaments were then grasped with long Allis clamps bilaterally. 0 Vicryl suture was used to transfix the uterosacral ligaments and then fix them to the anterior and posterior aspects of the vaginal cuff bilaterally, thus fixing the uterosacral ligaments of the vaginal fornices. The vaginal cuff closure was then closed in a transverse fashion using interrupted [id number] suture using 0 Vicryl. Good hemostasis was noted. We again returned to the abdominal surgical field after removing outer gloves. The abdomen was again insufflated. The vaginal cuff was visualized internally and noted to have good hemostasis. The left lateral pelvic sidewall was raw in appearance but had no active bleeding. In an abundance of caution, Surgicel was applied to the left lateral pelvic sidewall. Good hemostasis was noted. The abdomen was partially desufflated. Pedicles were observed under decreased pressure and good hemostasis was again confirmed at the cuff, pedicles, and along the areas of adhesion release. All instruments were removed from the abdomen. Skin was closed with interrupted subcuticular stitches using 4-0 Monocryl. Dermabond was applied over the suture sites. The final sponge needle and instrument counts were correct at completion of the procedure patient was awakened taken to the postanesthesia care unit in stable condition. Patient had been administered a second dose of antibiotics due to the length of the procedure. Dr. Mart assisted with suturing, retraction, cystoscopy, provision of surgical insight. Dr. Richter assisted with repair of bowel serosa, exploration of bowel/adhesions, and surgical insight. This case was more complicated that average due to extensive adhesive disease and 22 modifier should be applied.
[2020-01-05] MEDS ORDERED: ACETAMINOPHEN 325 MG TABLET PO PRN (15:39)
[2020-01-05] MEDS ORDERED: KETOROLAC 15 MG/ML VIAL IVP PRN ×2 (15:39→18:41)
[2020-01-05] MEDS ORDERED: SODIUM CHLORIDE FLUSH 0.9% 10 ML SYRINGE IVP PRN (15:39)
[2020-01-05] MEDS ORDERED: METOCLOPRAMIDE 10 MG/2 ML VIAL IVP PRN (15:39)
[2020-01-05] MEDS ORDERED: PHENOL THROAT SPRAY 177 ML MM PRN (15:39)
[2020-01-05 16:31] LABS: HB2 TOTAL 12.9 g/dL; HEMOGLOBIN A1C 0.55 g/dL; HEMOGLOBIN A1C % 6.1 % (4.6-6.2)
[2020-01-05] MEDS ORDERED: HYDROmorphone 0.5 MG/0.5 ML SYRINGE ONE (17:23)
[2020-01-05] MEDS: HYDROmorphone 0.5 MG/0.5 ML SYRINGE IVP PRN ×2 (17:28→20:25)
[2020-01-05] MEDS: INSULIN ASPART 300 UNIT/3 ML PEN SUBQ SCH ×2 (17:50→20:25)
[2020-01-05] MEDS: SODIUM CHLORIDE FLUSH 0.9% 10 ML SYRINGE IVP SCH (17:51)
[2020-01-05] MEDS ORDERED: ceFAZolin 1 GM VIAL ONE (17:56)
[2020-01-05] MEDS ORDERED: SODIUM CHLORIDE 0.9% 100ML 100 ML IV ONE (17:57)
[2020-01-05] MEDS ORDERED: ceFAZolin 2 GM in SODIUM CHLORIDE 0.9% 100ML 100 ML IV SCH (18:00)
[2020-01-05 18:36] LABS: CREATININE 2.1 mg/dL (0.4-1.0)
[2020-01-05] MEDS: GABAPENTIN 300 MG CAPSULE PO SCH (21:18)
[2020-01-05] MEDS ORDERED: LACTATED RINGERS 500 ML IV ONE (21:39)
[2020-01-05 21:58] LABS: BASOPHILS % (AUTO) 0.3 %; EOSINOPHILS % (AUTO) 0.3 %; HGB - HEMOGLOBIN 11.7 g/dL (12.0-16.0); LYMPHOCYTES % (AUTO) 13.8 %; MEAN CORPUSCULAR HEMOGLOBIN 27.3 pg (27.0-31.0); MEAN CORPUSCULAR HGB CONC 31.7 g/dL (32.0-36.0); MEAN CORPUSCULAR VOLUME 86.2 fL (81.0-99.0); MEAN PLATELET VOLUME 9.6 fL (7.9-10.8); MONOCYTES % (AUTO) 6.6 %; NEUTROPHILS # (AUTO) 11.4 10^3/uL (1.5-6.6); NEUTROPHILS % (AUTO) 78.6 %; PLT - PLATELET COUNT 295 10^3/uL (130-450); RED BLOOD COUNT 4.28 10^6/uL (4.20-5.40); RED CELL DISTRIBUTION WIDTH 15.7 % (12.0-15.0); WHITE BLOOD COUNT 14.5 x10^3/uL (4.8-10.8)
[2020-01-05] MEDS: ACETAMINOPHEN 1,000 MG/100 ML 100 ML IV PRN (22:08)
[2020-01-05] MEDS: LACTATED RINGERS 1,000 ML IV SCH (22:19)
[2020-01-06] MEDS: SODIUM CHLORIDE FLUSH 0.9% 10 ML SYRINGE IVP SCH ×3 (00:30→16:36)
[2020-01-06] MEDS: ACETAMINOPHEN 1,000 MG/100 ML 100 ML IV PRN ×3 (04:23→19:29)
[2020-01-06 05:23] LABS: BASOPHILS % (AUTO) 0.3 %; EOSINOPHILS % (AUTO) 0.2 %; HGB - HEMOGLOBIN 11.1 g/dL (12.0-16.0); LYMPHOCYTES # (AUTO) 3.1 10^3/uL (1.5-3.5); LYMPHOCYTES % (AUTO) 24.2 %; MEAN CORPUSCULAR HEMOGLOBIN 27.3 pg (27.0-31.0); MEAN CORPUSCULAR HGB CONC 31.3 g/dL (32.0-36.0); MEAN CORPUSCULAR VOLUME 87.4 fL (81.0-99.0); MONOCYTES % (AUTO) 7.9 %; NEUTROPHILS # (AUTO) 8.5 10^3/uL (1.5-6.6); PLT - PLATELET COUNT 268 10^3/uL (130-450); RED BLOOD COUNT 4.06 10^6/uL (4.20-5.40); RED CELL DISTRIBUTION WIDTH 15.8 % (12.0-15.0); WHITE BLOOD COUNT 12.7 x10^3/uL (4.8-10.8)
[2020-01-06 05:30] LABS: CALCIUM 8.1 mg/dL (8.5-10.3)
[2020-01-06] MEDS: INSULIN ASPART 300 UNIT/3 ML PEN SUBQ SCH ×4 (08:24→20:36)
[2020-01-06] MEDS: LACTATED RINGERS 1,000 ML IV SCH ×3 (08:41→18:29)
[2020-01-06] MEDS: ENOXAPARIN 30 MG/0.3 ML SYRINGE SUBQ SCH (08:44)
[2020-01-06] MEDS: oxyCODONE 5 MG TABLET PO PRN ×2 (08:44→20:35)
[2020-01-06] MEDS: GABAPENTIN 300 MG CAPSULE PO SCH ×2 (08:44→20:39)
[2020-01-06] MEDS: HYDROmorphone 0.5 MG/0.5 ML SYRINGE IVP PRN ×2 (12:12→16:36)
--- NOTE | 2020-01-06 13:26 | PROVIDER PROGRESS NOTE ---
Subjective - Prog Note Date Prog Note Date: 01/06/20 Prog Note Time: 08:30 - Subjective Subjective: Patient has not yet been up and out of bed. Pain management major challenge. Has abdominal pain as expected with degree of lysis of thick adhesions. Silvestre catheter remains in place with ample urine output. Tolerating po; had full breakfast. No N/V. Laso has not had flatus. Bps remain stable if avoiding IV dilaudid. Objective - Vital Signs/Intake & Output Vital Signs: Vital Signs x48h Temp Pulse Resp BP Pulse Ox 01/06/20 12:36 98.8 F 110 H 16 118/65 93 01/06/20 07:53 98.8 F 109 H 20 122/69 93 Intake & Output: Intake & Output 01/03/20 01/04/20 01/05/20 01/06/20 23:59 23:59 23:59 23:59 Intake Total 2911.667 1350.000 Output Total 1075 1185 Balance 1836.667 165.000 - Objective General Appearance: positive: No acute distress Eyes Bilateral: positive: Other (mild edema in eyelids) Respiratory: positive: Chest non-tender, No respiratory distress, Other (coughing, NC in place) Cardiovascular: positive: Regular rate & rhythm Abdomen: positive: Nml bowel sounds (soft and appropriately tender. Non- distended), Other Skin: positive: Color nml Neurologic/Psychiatric: positive: Oriented x3 (UOP 250 cc in 1.5 hours) - Lab Results Fish Bones: 01/06/20 05:00 01/06/20 05:00 Other Labs: Lab Results x24hrs 01/06/20 01/06/20 01/06/20 Range/Units 11:27 07:46 05:00 WBC (4.8-10.8) x10^3/uL RBC (4.20-5.40) 10^6/uL Hgb (12.0-16.0) g/dL Hct (37.0-47.0) % MCV (81.0-99.0) fL MCH (27.0-31.0) pg MCHC (32.0-36.0) g/dL RDW (12.0-15.0) % Plt Count (130-450) 10^3/uL MPV (7.9-10.8) fL Neut # (Auto) (1.5-6.6) 10^3/uL Lymph # (Auto) (1.5-3.5) 10^3/uL [place] # (Auto) (0.0-1.0) 10^3/uL Eos # (Auto) (0.0-0.7) 10^3/uL Baso # (Auto) (0.0-0.1) 10^3/uL Absolute Nucleated RBC x10^3/uL Nucleated RBC % /100WBC Sodium 136 (135-145) mmol/L Potassium 4.1 (3.5-5.0) mmol/L Chloride 103 (101-111) mmol/L Carbon Dioxide 25 (21-32) mmol/L Anion Gap 8.0 (6-13) BUN 35 H (6-20) mg/dL Creatinine 2.0 H (0.4-1.0) mg/dL Estimated GFR (MDRD) 30 L (>89) Glucose 116 H (70-100) mg/dL POC Whole Bld Glucose 138 H 112 H (70 - 100) mg/dL Glycated Hemoglobin (4.6-6.2) % Estim Average Glucose (70-100) Calcium 8.1 L (8.5-10.3) mg/dL 01/06/20 01/05/20 01/05/20 Range/Units 05:00 21:51 20:25 WBC 12.7 H 14.5 H (4.8-10.8) x10^3/uL RBC 4.06 L 4.28 (4.20-5.40) 10^6/uL Hgb 11.1 L 11.7 L (12.0-16.0) g/dL Hct 35.5 L 36.9 L (37.0-47.0) % MCV 87.4 86.2 (81.0-99.0) fL MCH 27.3 27.3 (27.0-31.0) pg MCHC 31.3 L 31.7 L (32.0-36.0) g/dL RDW 15.8 H 15.7 H (12.0-15.0) % Plt Count 268 295 (130-450) 10^3/uL MPV 10.0 9.6 (7.9-10.8) fL Neut # (Auto) 8.5 H 11.4 H (1.5-6.6) 10^3/uL Lymph # (Auto) 3.1 2.0 (1.5-3.5) 10^3/uL [place] # (Auto) 1.0 1.0 (0.0-1.0) 10^3/uL Eos # (Auto) 0.0 0.0 (0.0-0.7) 10^3/uL Baso # (Auto) 0.0 0.0 (0.0-0.1) 10^3/uL Absolute Nucleated RBC 0.00 0.00 x10^3/uL Nucleated RBC % 0.0 0.0 /100WBC Sodium (135-145) mmol/L Potassium (3.5-5.0) mmol/L Chloride (101-111) mmol/L Carbon Dioxide (21-32) mmol/L Anion Gap (6-13) BUN (6-20) mg/dL Creatinine (0.4-1.0) mg/dL Estimated GFR (MDRD) (>89) Glucose (70-100) mg/dL POC Whole Bld Glucose 112 H (70 - 100) mg/dL Glycated Hemoglobin (4.6-6.2) % Estim Average Glucose (70-100) Calcium (8.5-10.3) mg/dL 01/05/20 01/05/20 01/05/20 Range/Units 18:20 17:28 15:12 WBC (4.8-10.8) x10^3/uL RBC (4.20-5.40) 10^6/uL Hgb (12.0-16.0) g/dL Hct (37.0-47.0) % MCV (81.0-99.0) fL MCH (27.0-31.0) pg MCHC (32.0-36.0) g/dL RDW (12.0-15.0) % Plt Count (130-450) 10^3/uL MPV (7.9-10.8) fL Neut # (Auto) (1.5-6.6) 10^3/uL Lymph # (Auto) (1.5-3.5) 10^3/uL [place] # (Auto) (0.0-1.0) 10^3/uL Eos # (Auto) (0.0-0.7) 10^3/uL Baso # (Auto) (0.0-0.1) 10^3/uL Absolute Nucleated RBC x10^3/uL Nucleated RBC % /100WBC Sodium (135-145) mmol/L Potassium (3.5-5.0) mmol/L Chloride (101-111) mmol/L Carbon Dioxide (21-32) mmol/L Anion Gap (6-13) BUN (6-20) mg/dL Creatinine 2.1 H (0.4-1.0) mg/dL Estimated GFR (MDRD) 28 L (>89) Glucose (70-100) mg/dL POC Whole Bld Glucose 137 H 151 H (70 - 100) mg/dL Glycated Hemoglobin (4.6-6.2) % Estim Average Glucose (70-100) Calcium (8.5-10.3) mg/dL 01/05/20 Range/Units 07:15 WBC (4.8-10.8) x10^3/uL RBC (4.20-5.40) 10^6/uL Hgb (12.0-16.0) g/dL Hct (37.0-47.0) % MCV (81.0-99.0) fL MCH (27.0-31.0) pg MCHC (32.0-36.0) g/dL RDW (12.0-15.0) % Plt Count (130-450) 10^3/uL MPV (7.9-10.8) fL Neut # (Auto) (1.5-6.6) 10^3/uL Lymph # (Auto) (1.5-3.5) 10^3/uL [place] # (Auto) (0.0-1.0) 10^3/uL Eos # (Auto) (0.0-0.7) 10^3/uL Baso # (Auto) (0.0-0.1) 10^3/uL Absolute Nucleated RBC x10^3/uL Nucleated RBC % /100WBC Sodium (135-145) mmol/L Potassium (3.5-5.0) mmol/L Chloride (101-111) mmol/L Carbon Dioxide (21-32) mmol/L Anion Gap (6-13) BUN (6-20) mg/dL Creatinine (0.4-1.0) mg/dL Estimated GFR (MDRD) (>89) Glucose (70-100) mg/dL POC Whole Bld Glucose (70 - 100) mg/dL Glycated Hemoglobin 6.1 (4.6-6.2) % Estim Average Glucose 128 H (70-100) Calcium (8.5-10.3) mg/dL - Other Results/Comments Other Results/Comments: Exam performed by Dr. Mart Assessment/Plan - Problem List (1) Status post hysterectomy Impression: POD#1 s/p LAVH with lysis of adhesions Procedure was prolonged and complicated by significant thick bowel adhesions Small serosal defect repaired by Dr. Richter of General Surgery (no bowel injury/perforation was sustained) Patient encouraged in use of IS -Instructed in pulmonary toilet -Smoked 14+ cig/day; will prescribe nicotine patch Encourage ambulation DC silvestre when ambulatory ADAT Bilateral ureteral jets were noted on post op cystoscopy Recheck creatine this pm to confirm downward trend in creatinine Transition to po pain meds Anticipate pm discharge or discharge tomorrow pm is adequate pain management cannot be achieved UOP has been excellent but creatinine remains elevated over baseline
[2020-01-06] MEDS: NICOTINE 14 MG PATCH TOP SCH (15:00)
[2020-01-06] MEDS: ONDANSETRON 4 MG/2 ML VIAL IVP PRN (16:35)
[2020-01-06 18:25] LABS: BASOPHILS % (AUTO) 0.3 %; EOSINOPHILS # (AUTO) 0.1 10^3/uL (0.0-0.7); EOSINOPHILS % (AUTO) 1.1 %; HGB - HEMOGLOBIN 11.5 g/dL (12.0-16.0); LYMPHOCYTES # (AUTO) 2.9 10^3/uL (1.5-3.5); LYMPHOCYTES % (AUTO) 23.2 %; MEAN CORPUSCULAR HEMOGLOBIN 26.4 pg (27.0-31.0); MEAN CORPUSCULAR HGB CONC 31.1 g/dL (32.0-36.0); MEAN CORPUSCULAR VOLUME 85.1 fL (81.0-99.0); MEAN PLATELET VOLUME 9.9 fL (7.9-10.8); MONOCYTES # (AUTO) 0.8 10^3/uL (0.0-1.0); MONOCYTES % (AUTO) 6.6 %; NEUTROPHILS # (AUTO) 8.4 10^3/uL (1.5-6.6); NEUTROPHILS % (AUTO) 68.2 %; PLT - PLATELET COUNT 255 10^3/uL (130-450); RED BLOOD COUNT 4.35 10^6/uL (4.20-5.40); RED CELL DISTRIBUTION WIDTH 15.7 % (12.0-15.0); WHITE BLOOD COUNT 12.4 x10^3/uL (4.8-10.8)
[2020-01-06 18:40] LABS: ALBUMIN 3.1 g/dL (3.2-5.5); ALBUMIN/GLOBULIN RATIO 1.1 (1.0-2.2); BILIRUBIN,TOTAL 0.6 mg/dL (0.2-1.0); CALCIUM 8.2 mg/dL (8.5-10.3); CREATININE 1.7 mg/dL (0.4-1.0)
--- NOTE | 2020-01-06 19:13 | PROVIDER PROGRESS NOTE ---
Subjective - General Admit Date: 01/06/20 Procedure Date: 01/05/20 Post Op Days: 1 Procedure Performed: LAVH with Cysto, lysis of adhesions - Review of Systems Wound/Incisions: positive: Dressing dry and intact Drain Type: none General: positive: Chills HEENT: positive: No symptoms Pulmonary: positive: No symptoms, Cough Cardiovascular: positive: No symptoms Gastrointestinal: positive: Vomiting (one episode of 300 ml noon). negative: Flatus Genitourinary: positive: No symptoms. negative: Flank pain Objective - Patient Data Vital Signs: Vital Signs x48h Temp Pulse Pulse Resp BP BP Pulse Ox 01/06/20 18:05 36.7 C 84 16 111/59 L 84 L 01/06/20 15:46 36.6 C 82 16 118/56 L 94 01/06/20 15:02 37.1 C 110 H 16 93 01/06/20 12:36 37.1 C 110 H 16 118/65 93 Weight: Weight 01/04/20 01/05/20 01/06/20 23:59 23:59 23:59 Weight (kg) 83.1 kg Intake & Output: Intake and Output Totals x24h 01/04/20 01/05/20 01/06/20 23:59 23:59 23:59 Intake Total 2911.667 2328.333 Output Total 1075 1510 Balance 1836.667 818.333 - Lab Results Lab Results: 01/06/20 18:12 01/06/20 18:12 Other Lab Results: Lab Results x24hrs 01/06/20 01/06/20 01/06/20 Range/Units 18:12 18:12 16:44 WBC 12.4 H (4.8-10.8) x10^3/uL RBC 4.35 (4.20-5.40) 10^6/uL Hgb 11.5 L (12.0-16.0) g/dL Hct 37.0 (37.0-47.0) % MCV 85.1 (81.0-99.0) fL MCH 26.4 L (27.0-31.0) pg MCHC 31.1 L (32.0-36.0) g/dL RDW 15.7 H (12.0-15.0) % Plt Count 255 (130-450) 10^3/uL MPV 9.9 (7.9-10.8) fL Neut # (Auto) 8.4 H (1.5-6.6) 10^3/uL Lymph # (Auto) 2.9 (1.5-3.5) 10^3/uL Hubbard # (Auto) 0.8 (0.0-1.0) 10^3/uL Eos # (Auto) 0.1 (0.0-0.7) 10^3/uL Baso # (Auto) 0.0 (0.0-0.1) 10^3/uL Absolute Nucleated RBC 0.00 x10^3/uL Nucleated RBC % 0.0 /100WBC Sodium 138 (135-145) mmol/L Potassium 4.0 (3.5-5.0) mmol/L Chloride 103 (101-111) mmol/L Carbon Dioxide 27 (21-32) mmol/L Anion Gap 8.0 (6-13) BUN 31 H (6-20) mg/dL Creatinine 1.7 H (0.4-1.0) mg/dL Estimated GFR (MDRD) 36 L (>89) Glucose 130 H (70-100) mg/dL POC Whole Bld Glucose 146 H (70 - 100) mg/dL Calcium 8.2 L (8.5-10.3) mg/dL Total Bilirubin 0.6 (0.2-1.0) mg/dL AST 32 (10-42) IU/L ALT 11 (10-60) IU/L Alkaline Phosphatase 48 (42-121) IU/L Total Protein 6.0 L (6.7-8.2) g/dL Albumin 3.1 L (3.2-5.5) g/dL Globulin 2.9 (2.1-4.2) g/dL Albumin/Globulin Ratio 1.1 (1.0-2.2) 01/06/20 01/06/20 01/06/20 Range/Units 13:40 11:27 07:46 WBC (4.8-10.8) x10^3/uL RBC (4.20-5.40) 10^6/uL Hgb (12.0-16.0) g/dL Hct (37.0-47.0) % MCV (81.0-99.0) fL MCH (27.0-31.0) pg MCHC (32.0-36.0) g/dL RDW (12.0-15.0) % Plt Count (130-450) 10^3/uL MPV (7.9-10.8) fL Neut # (Auto) (1.5-6.6) 10^3/uL Lymph # (Auto) (1.5-3.5) 10^3/uL Hubbard # (Auto) (0.0-1.0) 10^3/uL Eos # (Auto) (0.0-0.7) 10^3/uL Baso # (Auto) (0.0-0.1) 10^3/uL Absolute Nucleated RBC x10^3/uL Nucleated RBC % /100WBC Sodium 137 (135-145) mmol/L Potassium 3.9 (3.5-5.0) mmol/L Chloride 104 (101-111) mmol/L Carbon Dioxide 25 (21-32) mmol/L Anion Gap 8.0 (6-13) BUN 33 H (6-20) mg/dL Creatinine 2.0 H (0.4-1.0) mg/dL Estimated GFR (MDRD) 30 L (>89) Glucose 163 H (70-100) mg/dL POC Whole Bld Glucose 138 H 112 H (70 - 100) mg/dL Calcium 8.0 L (8.5-10.3) mg/dL Total Bilirubin (0.2-1.0) mg/dL AST (10-42) IU/L ALT (10-60) IU/L Alkaline Phosphatase (42-121) IU/L Total Protein (6.7-8.2) g/dL Albumin (3.2-5.5) g/dL Globulin (2.1-4.2) g/dL Albumin/Globulin Ratio (1.0-2.2) 01/06/20 01/06/20 01/05/20 Range/Units 05:00 05:00 21:51 WBC 12.7 H 14.5 H (4.8-10.8) x10^3/uL RBC 4.06 L 4.28 (4.20-5.40) 10^6/uL Hgb 11.1 L 11.7 L (12.0-16.0) g/dL Hct 35.5 L 36.9 L (37.0-47.0) % MCV 87.4 86.2 (81.0-99.0) fL MCH 27.3 27.3 (27.0-31.0) pg MCHC 31.3 L 31.7 L (32.0-36.0) g/dL RDW 15.8 H 15.7 H (12.0-15.0) % Plt Count 268 295 (130-450) 10^3/uL MPV 10.0 9.6 (7.9-10.8) fL Neut # (Auto) 8.5 H 11.4 H (1.5-6.6) 10^3/uL Lymph # (Auto) 3.1 2.0 (1.5-3.5) 10^3/uL Hubbard # (Auto) 1.0 1.0 (0.0-1.0) 10^3/uL Eos # (Auto) 0.0 0.0 (0.0-0.7) 10^3/uL Baso # (Auto) 0.0 0.0 (0.0-0.1) 10^3/uL Absolute Nucleated RBC 0.00 0.00 x10^3/uL Nucleated RBC % 0.0 0.0 /100WBC Sodium 136 (135-145) mmol/L Potassium 4.1 (3.5-5.0) mmol/L Chloride 103 (101-111) mmol/L Carbon Dioxide 25 (21-32) mmol/L Anion Gap 8.0 (6-13) BUN 35 H (6-20) mg/dL Creatinine 2.0 H (0.4-1.0) mg/dL Estimated GFR (MDRD) 30 L (>89) Glucose 116 H (70-100) mg/dL POC Whole Bld Glucose (70 - 100) mg/dL Calcium 8.1 L (8.5-10.3) mg/dL Total Bilirubin (0.2-1.0) mg/dL AST (10-42) IU/L ALT (10-60) IU/L Alkaline Phosphatase (42-121) IU/L Total Protein (6.7-8.2) g/dL Albumin (3.2-5.5) g/dL Globulin (2.1-4.2) g/dL Albumin/Globulin Ratio (1.0-2.2) 01/05/20 Range/Units 20:25 WBC (4.8-10.8) x10^3/uL RBC (4.20-5.40) 10^6/uL Hgb (12.0-16.0) g/dL Hct (37.0-47.0) % MCV (81.0-99.0) fL MCH (27.0-31.0) pg MCHC (32.0-36.0) g/dL RDW (12.0-15.0) % Plt Count (130-450) 10^3/uL MPV (7.9-10.8) fL Neut # (Auto) (1.5-6.6) 10^3/uL Lymph # (Auto) (1.5-3.5) 10^3/uL Hubbard # (Auto) (0.0-1.0) 10^3/uL Eos # (Auto) (0.0-0.7) 10^3/uL Baso # (Auto) (0.0-0.1) 10^3/uL Absolute Nucleated RBC x10^3/uL Nucleated RBC % /100WBC Sodium (135-145) mmol/L Potassium (3.5-5.0) mmol/L Chloride (101-111) mmol/L Carbon Dioxide (21-32) mmol/L Anion Gap (6-13) BUN (6-20) mg/dL Creatinine (0.4-1.0) mg/dL Estimated GFR (MDRD) (>89) Glucose (70-100) mg/dL POC Whole Bld Glucose 112 H (70 - 100) mg/dL Calcium (8.5-10.3) mg/dL Total Bilirubin (0.2-1.0) mg/dL AST (10-42) IU/L ALT (10-60) IU/L Alkaline Phosphatase (42-121) IU/L Total Protein (6.7-8.2) g/dL Albumin (3.2-5.5) g/dL Globulin (2.1-4.2) g/dL Albumin/Globulin Ratio (1.0-2.2) - Current Medications Current Medications: Current Medications Generic Name Dose Route Start Last Admin Trade Name Freq PRN Reason Stop Dose Admin Enoxaparin Sodium 30 mg 01/06/20 09:00 01/06/20 08:44 Lovenox SUBQ 30 mg DAILY [facility] Administration Gabapentin 300 mg 01/05/20 22:00 01/06/20 08:44 Neurontin PO 300 mg BID [facility]IER Administration Hydromorphone HCl 0.5 mg 01/05/20 15:39 01/06/20 16:36 Dilaudid Inj Syringe IVP 0.5 mg Q2H PRN Administration PAIN Lactated Ringer's 1,000 mls @ 100 mls/hr 01/05/20 16:00 01/06/20 18:29 Lr IV 100 mls/hr .Q10H [facility] Administration Acetaminophen 100 mls @ 400 mls/hr 01/05/20 20:34 01/06/20 11:26 Ofirmev IV Infused Q6HR PRN Infusion PAIN Insulin Aspart 1 - 5 unit 01/05/20 17:00 01/06/20 17:04 Novolog SUBQ 1 unit 0800,1200,1700,2100 [facility] Administration Protocol Metoclopramide HCl 5 mg 01/05/20 15:39 01/06/20 12:28 Reglan Inj IVP 5 mg Q6H PRN Administration Nausea / Vomiting Nicotine 1 patch 01/06/20 13:36 01/06/20 15:00 Nicoderm TOP 1 patch DAILY [facility] Administration Ondansetron HCl 4 mg 01/05/20 15:39 01/06/20 16:35 Zofran Inj IVP 4 mg Q6H PRN Administration Nausea / Vomiting Oxycodone HCl 5 mg 01/05/20 15:39 01/06/20 08:44 Roxicodone PO 5 mg Q4HR PRN Administration PAIN Sodium Chloride 10 ml 01/05/20 17:00 01/06/20 16:36 Normal Saline Flush 0.9% IVP 10 ml 0100,0900,1700 [facility] Administration - Physical Exam Wound/Incisions: positive: Healing well, No drainage General Appearance: positive: Alert, Mild distress (Pain 6/10) Respiratory: positive: Chest non-tender, No respiratory distress, Breath sounds nml Cardiovascular: positive: Regular rate & rhythm, No murmur, No gallop Abdomen: positive: No distention, Tenderness (local over the lower abdomin. no rebound), Abnml bowel sounds (decreased bowel sounds). negative: Guarding, Rebound Back: negative: CVA tenderness (R), CVA tenderness (L) Extremities: negative: Calf tenderness, Katerin's sign/cords Neurologic/Psychiatric: positive: Oriented x3 Impression/Plan - Problem List Problem List: POD #1 S/P LAVH with lysis of adhesions serosial tear adn repair with 3-0 silk Post op illious, Stable white count and normal e lyts. increase pulmonary toilet monitor progress. Watch for temp, tachy cardia. CBC and CMP in the AM
[2020-01-07] MEDS: oxyCODONE 5 MG TABLET PO PRN (01:04)
[2020-01-07] MEDS: SODIUM CHLORIDE FLUSH 0.9% 10 ML SYRINGE IVP SCH ×4 (01:05→23:47)
[2020-01-07] MEDS: ONDANSETRON 4 MG/2 ML VIAL IVP PRN ×2 (03:54→08:19)
[2020-01-07] MEDS: LACTATED RINGERS 1,000 ML IV SCH ×2 (03:54→14:58)
[2020-01-07] MEDS: HYDROmorphone 0.5 MG/0.5 ML SYRINGE IVP PRN ×2 (03:54→08:19)
[2020-01-07 05:24] LABS: BASOPHILS % (AUTO) 0.4 %; EOSINOPHILS # (AUTO) 0.2 10^3/uL (0.0-0.7); EOSINOPHILS % (AUTO) 2.1 %; HGB - HEMOGLOBIN 10.3 g/dL (12.0-16.0); LYMPHOCYTES % (AUTO) 28.3 %; MEAN CORPUSCULAR HEMOGLOBIN 26.5 pg (27.0-31.0); MEAN CORPUSCULAR HGB CONC 30.7 g/dL (32.0-36.0); MEAN CORPUSCULAR VOLUME 86.3 fL (81.0-99.0); MEAN PLATELET VOLUME 10.3 fL (7.9-10.8); MONOCYTES # (AUTO) 0.7 10^3/uL (0.0-1.0); MONOCYTES % (AUTO) 7.1 %; NEUTROPHILS # (AUTO) 6.4 10^3/uL (1.5-6.6); NEUTROPHILS % (AUTO) 61.5 %; PLT - PLATELET COUNT 236 10^3/uL (130-450); RED BLOOD COUNT 3.88 10^6/uL (4.20-5.40); RED CELL DISTRIBUTION WIDTH 15.8 % (12.0-15.0); WHITE BLOOD COUNT 10.5 x10^3/uL (4.8-10.8)
[2020-01-07 05:33] LABS: ALBUMIN 2.8 g/dL (3.2-5.5); ALKALINE PHOSPHATASE 48 IU/L (42-121); ALT ALANINE AMINOTRANSFERASE < 10 IU/L (10-60); AST ASPARTATE AMINOTRANSFERASE 29 IU/L (10-42); BILIRUBIN,TOTAL 0.5 mg/dL (0.2-1.0); BUN - BLOOD UREA NITROGEN 30 mg/dL (6-20); CALCIUM 8.2 mg/dL (8.5-10.3); CARBON DIOXIDE - CO2 28 mmol/L (21-32); CHLORIDE 108 mmol/L (101-111); CREATININE 1.6 mg/dL (0.4-1.0); GFR - MDRD 39 (>89); GLUCOSE 126 mg/dL (70-100); SODIUM 142 mmol/L (135-145); TOTAL PROTEIN 5.5 g/dL (6.7-8.2)
[2020-01-07] MEDS: INSULIN ASPART 300 UNIT/3 ML PEN SUBQ SCH ×4 (08:18→21:37)
[2020-01-07] MEDS: GABAPENTIN 300 MG CAPSULE PO SCH ×2 (08:19→21:37)
[2020-01-07] MEDS: ENOXAPARIN 30 MG/0.3 ML SYRINGE SUBQ SCH (08:19)
[2020-01-07] MEDS: NICOTINE 14 MG PATCH TOP SCH (08:20)
--- NOTE | 2020-01-07 11:19 | PROVIDER PROGRESS NOTE ---
Subjective - General Admit Date: 01/06/20 Procedure Date: 01/06/20 Post Op Days: 1 Procedure Performed: LAVH with Cysto, lysis of adhesions - Review of Systems Wound/Incisions: positive: Healing well, No drainage Drain Type: none General: positive: No symptoms (Pain 6/10.), Chills HEENT: positive: No symptoms Pulmonary: positive: No symptoms, Cough Cardiovascular: positive: No symptoms Gastrointestinal: positive: Vomiting (one episode of 300 ml noon). negative: Flatus Genitourinary: positive: No symptoms. negative: Flank pain Objective - Patient Data Reviewed Vital Signs: Yes Vital Signs: Vital Signs x48h Temp Pulse Resp BP Pulse Ox 01/07/20 03:30 36.6 C 102 H 18 118/58 L 95 Weight: Weight 01/05/20 01/06/20 01/07/20 23:59 23:59 23:59 Weight (kg) 83.1 kg Intake & Output: Intake and Output Totals x24h 01/05/20 01/06/20 01/07/20 23:59 23:59 23:59 Intake Total 2911.667 2628.333 1181.667 Output Total 1075 1510 1200 Balance 4443.881 4416.333 -18.333 - Lab Results Lab Results: 01/07/20 04:15 01/07/20 04:15 Other Lab Results: Lab Results x24hrs 01/07/20 01/07/20 01/07/20 Range/Units 07:52 04:15 04:15 WBC 10.5 (4.8-10.8) x10^3/uL RBC 3.88 L (4.20-5.40) 10^6/uL Hgb 10.3 L (12.0-16.0) g/dL Hct 33.5 L (37.0-47.0) % MCV 86.3 (81.0-99.0) fL MCH 26.5 L (27.0-31.0) pg MCHC 30.7 L (32.0-36.0) g/dL RDW 15.8 H (12.0-15.0) % Plt Count 236 (130-450) 10^3/uL MPV 10.3 (7.9-10.8) fL Neut # (Auto) 6.4 (1.5-6.6) 10^3/uL Lymph # (Auto) 3.0 (1.5-3.5) 10^3/uL [place]uming # (Auto) 0.7 (0.0-1.0) 10^3/uL Eos # (Auto) 0.2 (0.0-0.7) 10^3/uL Baso # (Auto) 0.0 (0.0-0.1) 10^3/uL Absolute Nucleated RBC 0.00 x10^3/uL Nucleated RBC % 0.0 /100WBC Sodium 142 (135-145) mmol/L Potassium 4.0 (3.5-5.0) mmol/L Chloride 108 (101-111) mmol/L Carbon Dioxide 28 (21-32) mmol/L Anion Gap 6.0 (6-13) BUN 30 H (6-20) mg/dL Creatinine 1.6 H (0.4-1.0) mg/dL Estimated GFR (MDRD) 39 L (>89) Glucose 126 H (70-100) mg/dL POC Whole Bld Glucose 119 H (70 - 100) mg/dL Calcium 8.2 L (8.5-10.3) mg/dL Total Bilirubin 0.5 (0.2-1.0) mg/dL AST 29 (10-42) IU/L ALT < 10 L (10-60) IU/L Alkaline Phosphatase 48 (42-121) IU/L Total Protein 5.5 L (6.7-8.2) g/dL Albumin 2.8 L (3.2-5.5) g/dL Globulin 2.7 (2.1-4.2) g/dL Albumin/Globulin Ratio 1.0 (1.0-2.2) 01/06/20 01/06/20 01/06/20 Range/Units 20:25 18:12 18:12 WBC 12.4 H (4.8-10.8) x10^3/uL RBC 4.35 (4.20-5.40) 10^6/uL Hgb 11.5 L (12.0-16.0) g/dL Hct 37.0 (37.0-47.0) % MCV 85.1 (81.0-99.0) fL MCH 26.4 L (27.0-31.0) pg MCHC 31.1 L (32.0-36.0) g/dL RDW 15.7 H (12.0-15.0) % Plt Count 255 (130-450) 10^3/uL MPV 9.9 (7.9-10.8) fL Neut # (Auto) 8.4 H (1.5-6.6) 10^3/uL Lymph # (Auto) 2.9 (1.5-3.5) 10^3/uL [place]uming # (Auto) 0.8 (0.0-1.0) 10^3/uL Eos # (Auto) 0.1 (0.0-0.7) 10^3/uL Baso # (Auto) 0.0 (0.0-0.1) 10^3/uL Absolute Nucleated RBC 0.00 x10^3/uL Nucleated RBC % 0.0 /100WBC Sodium 138 (135-145) mmol/L Potassium 4.0 (3.5-5.0) mmol/L Chloride 103 (101-111) mmol/L Carbon Dioxide 27 (21-32) mmol/L Anion Gap 8.0 (6-13) BUN 31 H (6-20) mg/dL Creatinine 1.7 H (0.4-1.0) mg/dL Estimated GFR (MDRD) 36 L (>89) Glucose 130 H (70-100) mg/dL POC Whole Bld Glucose 157 H (70 - 100) mg/dL Calcium 8.2 L (8.5-10.3) mg/dL Total Bilirubin 0.6 (0.2-1.0) mg/dL AST 32 (10-42) IU/L ALT 11 (10-60) IU/L Alkaline Phosphatase 48 (42-121) IU/L Total Protein 6.0 L (6.7-8.2) g/dL Albumin 3.1 L (3.2-5.5) g/dL Globulin 2.9 (2.1-4.2) g/dL Albumin/Globulin Ratio 1.1 (1.0-2.2) 01/06/20 01/06/20 01/06/20 Range/Units 16:44 13:40 11:27 WBC (4.8-10.8) x10^3/uL RBC (4.20-5.40) 10^6/uL Hgb (12.0-16.0) g/dL Hct (37.0-47.0) % MCV (81.0-99.0) fL MCH (27.0-31.0) pg MCHC (32.0-36.0) g/dL RDW (12.0-15.0) % Plt Count (130-450) 10^3/uL MPV (7.9-10.8) fL Neut # (Auto) (1.5-6.6) 10^3/uL Lymph # (Auto) (1.5-3.5) 10^3/uL [place]uming # (Auto) (0.0-1.0) 10^3/uL Eos # (Auto) (0.0-0.7) 10^3/uL Baso # (Auto) (0.0-0.1) 10^3/uL Absolute Nucleated RBC x10^3/uL Nucleated RBC % /100WBC Sodium 137 (135-145) mmol/L Potassium 3.9 (3.5-5.0) mmol/L Chloride 104 (101-111) mmol/L Carbon Dioxide 25 (21-32) mmol/L Anion Gap 8.0 (6-13) BUN 33 H (6-20) mg/dL Creatinine 2.0 H (0.4-1.0) mg/dL Estimated GFR (MDRD) 30 L (>89) Glucose 163 H (70-100) mg/dL POC Whole Bld Glucose 146 H 138 H (70 - 100) mg/dL Calcium 8.0 L (8.5-10.3) mg/dL Total Bilirubin (0.2-1.0) mg/dL AST (10-42) IU/L ALT (10-60) IU/L Alkaline Phosphatase (42-121) IU/L Total Protein (6.7-8.2) g/dL Albumin (3.2-5.5) g/dL Globulin (2.1-4.2) g/dL Albumin/Globulin Ratio (1.0-2.2) - Current Medications Current Medications: Current Medications Generic Name Dose Route Start Last Admin Trade Name Freq PRN Reason Stop Dose Admin Acetaminophen 325 mg 01/05/20 15:39 01/07/20 01:04 Tylenol PO 325 mg Q4HR PRN Administration PAIN Enoxaparin Sodium 30 mg 01/06/20 09:00 01/07/20 08:19 Lovenox SUBQ 30 mg DAILY [facility] Administration Gabapentin 300 mg 01/05/20 22:00 01/07/20 08:19 Neurontin PO 300 mg BID [facility] Administration Hydromorphone HCl 0.5 mg 01/05/20 15:39 01/07/20 08:19 Dilaudid Inj Syringe IVP 0.5 mg Q2H PRN Administration PAIN Lactated Ringer's 1,000 mls @ 100 mls/hr 01/05/20 16:00 01/07/20 03:54 Lr IV 100 mls/hr .Q10H [facility] Administration Acetaminophen 100 mls @ 400 mls/hr 01/05/20 20:34 01/06/20 19:44 Ofirmev IV Infused Q6HR PRN Infusion PAIN Insulin Aspart 1 - 5 unit 01/05/20 17:00 01/07/20 08:18 Novolog SUBQ Not Given 0800,1200,1700,2100 [facility] Protocol Metoclopramide HCl 5 mg 01/05/20 15:39 01/06/20 12:28 Reglan Inj IVP 5 mg Q6H PRN Administration Nausea / Vomiting Nicotine 1 patch 01/06/20 13:36 01/07/20 08:20 Nicoderm TOP 1 patch DAILY [facility] Administration Ondansetron HCl 4 mg 01/05/20 15:39 01/07/20 08:19 Zofran Inj IVP 4 mg Q6H PRN Administration Nausea / Vomiting Oxycodone HCl 5 mg 01/05/20 15:39 01/07/20 01:04 Roxicodone PO 5 mg Q4HR PRN Administration PAIN Sodium Chloride 10 ml 01/05/20 17:00 01/07/20 01:05 Normal Saline Flush 0.9% IVP Not Given 0100,0900,1700 [facility] - Physical Exam Wound/Incisions: positive: Healing well General Appearance: positive: Mild distress (Pain 6/10) Respiratory: positive: Rales (At bases) Cardiovascular: positive: Regular rate & rhythm, No murmur, No gallop Abdomen: positive: Non-tender, Nml bowel sounds. negative: Guarding, Rebound Back: negative: CVA tenderness (R), CVA tenderness (L) Skin: positive: Color nml, Warm, Dry Extremities: negative: Calf tenderness, Katerin's sign/cords Neurologic/Psychiatric: positive: Oriented x3 Impression/Plan - Problem List Problem List: POD #2 Post op illious Chance to clear liquids WBC improving Elyts and Creatinine improving Watch output Pulmonary toiles Ambulate
[2020-01-07] MEDS: ACETAMINOPHEN 1,000 MG/100 ML 100 ML IV PRN ×2 (13:22→19:36)
--- NOTE | 2020-01-07 13:22 | XRAY Report ---
Reason: increased O2 requirement post op; dim breath sound Procedure Date: 01/07/2020 Accession Number: [id number] / [id number] Procedure: XR - Chest 2 View X-Ray CPT Code: 31890 Final Report FULL RESULT: EXAM: CHEST RADIOGRAPHY EXAM DATE: 01/07/2020 12:18 PM. CLINICAL HISTORY: Increased O2 requirement post op; diminished breath sound. COMPARISON: CHEST 2 VIEW PA/LAT 09/30/2015 12:36 AM CHEST ANGIO 07/29/2016 9:51 PM. TECHNIQUE: 2 views. FINDINGS: Cardiac leads overlie the chest. Heart size is normal. Calcified plaque in the aortic arch. The lungs are hypoexpanded. Patchy and linear opacities in the lung bases. No pleural effusions or pneumothoraces visualized. IMPRESSION: Low lung volumes. Patchy and linear opacities in the lung bases likely represent atelectasis. Changes from aspiration not entirely excluded. RADIA
--- NOTE | 2020-01-07 13:25 | XRAY Report ---
Reason: suspect ileus- KUB Procedure Date: 01/07/2020 Accession Number: [id number] / [id number] Procedure: XR - Abdomen 2 View X-Ray CPT Code: 82066 Final Report FULL RESULT: EXAM: ABDOMEN RADIOGRAPHY EXAM DATE: 01/07/2020 12:18 PM. CLINICAL HISTORY: Suspect ileus. COMPARISON: ABDOMEN W/O 01/03/2017 1:01 PM. TECHNIQUE: 2 views. FINDINGS: Lung Bases: Patchy bibasilar opacities. Small right pleural effusion better seen on this exam compared to the same day chest radiograph. Bowel Gas Pattern: No dilated small or large bowel loops. Free Air: None. Other: No pathologic abdominal calcifications. Bones appear intact. IMPRESSION: 1. Nonobstructive bowel gas. 2. Patchy bibasilar opacities and small right pleural effusion. RADIA
--- NOTE | 2020-01-07 13:27 | PROVIDER PROGRESS NOTE ---
Subjective - Prog Note Date Prog Note Date: 01/07/20 Prog Note Time: 13:24 - Subjective Subjective: Up ambulating in room. Dizziness and nausea noted earlier resolved. In review, it appears both symptoms temporally related to administration of narcotics. Pt agrees. VSS afeb Abd soft. Imaging report pending. A/P Restart SCDs Encourage ambulation and use of IS. Wean O2 Advance diet. Change to IV tylenol for pain. Reexamine later today. Objective - Vital Signs/Intake & Output Intake & Output: Intake & Output 01/04/20 01/05/20 01/06/20 01/07/20 23:59 23:59 23:59 23:59 Intake Total 2911.667 2628.333 1181.667 Output Total 1075 1510 1200 Balance 7565.395 0265.333 -18.333 - Lab Results Fish Bones: 01/07/20 04:15 01/07/20 04:15 Other Labs: Lab Results x24hrs 01/07/20 01/07/20 01/07/20 Range/Units 11:50 07:52 04:15 WBC (4.8-10.8) x10^3/uL RBC (4.20-5.40) 10^6/uL Hgb (12.0-16.0) g/dL Hct (37.0-47.0) % MCV (81.0-99.0) fL MCH (27.0-31.0) pg MCHC (32.0-36.0) g/dL RDW (12.0-15.0) % Plt Count (130-450) 10^3/uL MPV (7.9-10.8) fL Neut # (Auto) (1.5-6.6) 10^3/uL Lymph # (Auto) (1.5-3.5) 10^3/uL [place] # (Auto) (0.0-1.0) 10^3/uL Eos # (Auto) (0.0-0.7) 10^3/uL Baso # (Auto) (0.0-0.1) 10^3/uL Absolute Nucleated RBC x10^3/uL Nucleated RBC % /100WBC Sodium 142 (135-145) mmol/L Potassium 4.0 (3.5-5.0) mmol/L Chloride 108 (101-111) mmol/L Carbon Dioxide 28 (21-32) mmol/L Anion Gap 6.0 (6-13) BUN 30 H (6-20) mg/dL Creatinine 1.6 H (0.4-1.0) mg/dL Estimated GFR (MDRD) 39 L (>89) Glucose 126 H (70-100) mg/dL POC Whole Bld Glucose 146 H 119 H (70 - 100) mg/dL Calcium 8.2 L (8.5-10.3) mg/dL Total Bilirubin 0.5 (0.2-1.0) mg/dL AST 29 (10-42) IU/L ALT < 10 L (10-60) IU/L Alkaline Phosphatase 48 (42-121) IU/L Total Protein 5.5 L (6.7-8.2) g/dL Albumin 2.8 L (3.2-5.5) g/dL Globulin 2.7 (2.1-4.2) g/dL Albumin/Globulin Ratio 1.0 (1.0-2.2) 01/07/20 01/06/20 01/06/20 Range/Units 04:15 20:25 18:12 WBC 10.5 (4.8-10.8) x10^3/uL RBC 3.88 L (4.20-5.40) 10^6/uL Hgb 10.3 L (12.0-16.0) g/dL Hct 33.5 L (37.0-47.0) % MCV 86.3 (81.0-99.0) fL MCH 26.5 L (27.0-31.0) pg MCHC 30.7 L (32.0-36.0) g/dL RDW 15.8 H (12.0-15.0) % Plt Count 236 (130-450) 10^3/uL MPV 10.3 (7.9-10.8) fL Neut # (Auto) 6.4 (1.5-6.6) 10^3/uL Lymph # (Auto) 3.0 (1.5-3.5) 10^3/uL [place] # (Auto) 0.7 (0.0-1.0) 10^3/uL Eos # (Auto) 0.2 (0.0-0.7) 10^3/uL Baso # (Auto) 0.0 (0.0-0.1) 10^3/uL Absolute Nucleated RBC 0.00 x10^3/uL Nucleated RBC % 0.0 /100WBC Sodium 138 (135-145) mmol/L Potassium 4.0 (3.5-5.0) mmol/L Chloride 103 (101-111) mmol/L Carbon Dioxide 27 (21-32) mmol/L Anion Gap 8.0 (6-13) BUN 31 H (6-20) mg/dL Creatinine 1.7 H (0.4-1.0) mg/dL Estimated GFR (MDRD) 36 L (>89) Glucose 130 H (70-100) mg/dL POC Whole Bld Glucose 157 H (70 - 100) mg/dL Calcium 8.2 L (8.5-10.3) mg/dL Total Bilirubin 0.6 (0.2-1.0) mg/dL AST 32 (10-42) IU/L ALT 11 (10-60) IU/L Alkaline Phosphatase 48 (42-121) IU/L Total Protein 6.0 L (6.7-8.2) g/dL Albumin 3.1 L (3.2-5.5) g/dL Globulin 2.9 (2.1-4.2) g/dL Albumin/Globulin Ratio 1.1 (1.0-2.2) 01/06/20 01/06/20 01/06/20 Range/Units 18:12 16:44 13:40 WBC 12.4 H (4.8-10.8) x10^3/uL RBC 4.35 (4.20-5.40) 10^6/uL Hgb 11.5 L (12.0-16.0) g/dL Hct 37.0 (37.0-47.0) % MCV 85.1 (81.0-99.0) fL MCH 26.4 L (27.0-31.0) pg MCHC 31.1 L (32.0-36.0) g/dL RDW 15.7 H (12.0-15.0) % Plt Count 255 (130-450) 10^3/uL MPV 9.9 (7.9-10.8) fL Neut # (Auto) 8.4 H (1.5-6.6) 10^3/uL Lymph # (Auto) 2.9 (1.5-3.5) 10^3/uL [place] # (Auto) 0.8 (0.0-1.0) 10^3/uL Eos # (Auto) 0.1 (0.0-0.7) 10^3/uL Baso # (Auto) 0.0 (0.0-0.1) 10^3/uL Absolute Nucleated RBC 0.00 x10^3/uL Nucleated RBC % 0.0 /100WBC Sodium 137 (135-145) mmol/L Potassium 3.9 (3.5-5.0) mmol/L Chloride 104 (101-111) mmol/L Carbon Dioxide 25 (21-32) mmol/L Anion Gap 8.0 (6-13) BUN 33 H (6-20) mg/dL Creatinine 2.0 H (0.4-1.0) mg/dL Estimated GFR (MDRD) 30 L (>89) Glucose 163 H (70-100) mg/dL POC Whole Bld Glucose 146 H (70 - 100) mg/dL Calcium 8.0 L (8.5-10.3) mg/dL Total Bilirubin (0.2-1.0) mg/dL AST (10-42) IU/L ALT (10-60) IU/L Alkaline Phosphatase (42-121) IU/L Total Protein (6.7-8.2) g/dL Albumin (3.2-5.5) g/dL Globulin (2.1-4.2) g/dL Albumin/Globulin Ratio (1.0-2.2)
--- NOTE | 2020-01-07 18:14 | PROVIDER PROGRESS NOTE ---
Subjective - Prog Note Date Prog Note Date: 01/07/20 Prog Note Time: 18:11 - Subjective Pt reports feeling: Improved (Pain level minimally changed, still reports 5/10, localized to left incision sites. nausea and dizziness completely resolved. Tolerated normal lunch and dinner. Denies dyspnea or chest pain.) Objective - Vital Signs/Intake & Output Vital Signs: Vital Signs x48h Temp Pulse Resp BP Pulse Ox 01/07/20 17:49 97 01/07/20 14:00 97.7 F 99 16 126/73 99 Intake & Output: Intake & Output 01/04/20 01/05/20 01/06/20 01/07/20 23:59 23:59 23:59 23:59 Intake Total 2911.667 2628.333 2521.667 Output Total 1075 1510 1700 Balance 4335.892 9820.333 821.667 - Objective Respiratory: positive: Other (CXR noted small rt effusion, evidence of atelectasis. Per RT, continues to have a few basilar crackles. O2 requirement weaned to 1L (was 4) to keep sat >92%) Abdomen: positive: Non-tender, Other (Incisions D&I, healing. Mild tenderness on left incisions) - Lab Results Fish Bones: 01/07/20 04:15 01/07/20 04:15 Other Labs: Lab Results x24hrs 01/07/20 01/07/20 01/07/20 Range/Units 16:50 11:50 07:52 WBC (4.8-10.8) x10^3/uL RBC (4.20-5.40) 10^6/uL Hgb (12.0-16.0) g/dL Hct (37.0-47.0) % MCV (81.0-99.0) fL MCH (27.0-31.0) pg MCHC (32.0-36.0) g/dL RDW (12.0-15.0) % Plt Count (130-450) 10^3/uL MPV (7.9-10.8) fL Neut # (Auto) (1.5-6.6) 10^3/uL Lymph # (Auto) (1.5-3.5) 10^3/uL [place] # (Auto) (0.0-1.0) 10^3/uL Eos # (Auto) (0.0-0.7) 10^3/uL Baso # (Auto) (0.0-0.1) 10^3/uL Absolute Nucleated RBC x10^3/uL Nucleated RBC % /100WBC Sodium (135-145) mmol/L Potassium (3.5-5.0) mmol/L Chloride (101-111) mmol/L Carbon Dioxide (21-32) mmol/L Anion Gap (6-13) BUN (6-20) mg/dL Creatinine (0.4-1.0) mg/dL Estimated GFR (MDRD) (>89) Glucose (70-100) mg/dL POC Whole Bld Glucose 121 H 146 H 119 H (70 - 100) mg/dL Calcium (8.5-10.3) mg/dL Total Bilirubin (0.2-1.0) mg/dL AST (10-42) IU/L ALT (10-60) IU/L Alkaline Phosphatase (42-121) IU/L Total Protein (6.7-8.2) g/dL Albumin (3.2-5.5) g/dL Globulin (2.1-4.2) g/dL Albumin/Globulin Ratio (1.0-2.2) 01/07/20 01/07/20 01/06/20 Range/Units 04:15 04:15 20:25 WBC 10.5 (4.8-10.8) x10^3/uL RBC 3.88 L (4.20-5.40) 10^6/uL Hgb 10.3 L (12.0-16.0) g/dL Hct 33.5 L (37.0-47.0) % MCV 86.3 (81.0-99.0) fL MCH 26.5 L (27.0-31.0) pg MCHC 30.7 L (32.0-36.0) g/dL RDW 15.8 H (12.0-15.0) % Plt Count 236 (130-450) 10^3/uL MPV 10.3 (7.9-10.8) fL Neut # (Auto) 6.4 (1.5-6.6) 10^3/uL Lymph # (Auto) 3.0 (1.5-3.5) 10^3/uL [place] # (Auto) 0.7 (0.0-1.0) 10^3/uL Eos # (Auto) 0.2 (0.0-0.7) 10^3/uL Baso # (Auto) 0.0 (0.0-0.1) 10^3/uL Absolute Nucleated RBC 0.00 x10^3/uL Nucleated RBC % 0.0 /100WBC Sodium 142 (135-145) mmol/L Potassium 4.0 (3.5-5.0) mmol/L Chloride 108 (101-111) mmol/L Carbon Dioxide 28 (21-32) mmol/L Anion Gap 6.0 (6-13) BUN 30 H (6-20) mg/dL Creatinine 1.6 H (0.4-1.0) mg/dL Estimated GFR (MDRD) 39 L (>89) Glucose 126 H (70-100) mg/dL POC Whole Bld Glucose 157 H (70 - 100) mg/dL Calcium 8.2 L (8.5-10.3) mg/dL Total Bilirubin 0.5 (0.2-1.0) mg/dL AST 29 (10-42) IU/L ALT < 10 L (10-60) IU/L Alkaline Phosphatase 48 (42-121) IU/L Total Protein 5.5 L (6.7-8.2) g/dL Albumin 2.8 L (3.2-5.5) g/dL Globulin 2.7 (2.1-4.2) g/dL Albumin/Globulin Ratio 1.0 (1.0-2.2) 01/06/20 01/06/20 Range/Units 18:12 18:12 WBC 12.4 H (4.8-10.8) x10^3/uL RBC 4.35 (4.20-5.40) 10^6/uL Hgb 11.5 L (12.0-16.0) g/dL Hct 37.0 (37.0-47.0) % MCV 85.1 (81.0-99.0) fL MCH 26.4 L (27.0-31.0) pg MCHC 31.1 L (32.0-36.0) g/dL RDW 15.7 H (12.0-15.0) % Plt Count 255 (130-450) 10^3/uL MPV 9.9 (7.9-10.8) fL Neut # (Auto) 8.4 H (1.5-6.6) 10^3/uL Lymph # (Auto) 2.9 (1.5-3.5) 10^3/uL [place] # (Auto) 0.8 (0.0-1.0) 10^3/uL Eos # (Auto) 0.1 (0.0-0.7) 10^3/uL Baso # (Auto) 0.0 (0.0-0.1) 10^3/uL Absolute Nucleated RBC 0.00 x10^3/uL Nucleated RBC % 0.0 /100WBC Sodium 138 (135-145) mmol/L Potassium 4.0 (3.5-5.0) mmol/L Chloride 103 (101-111) mmol/L Carbon Dioxide 27 (21-32) mmol/L Anion Gap 8.0 (6-13) BUN 31 H (6-20) mg/dL Creatinine 1.7 H (0.4-1.0) mg/dL Estimated GFR (MDRD) 36 L (>89) Glucose 130 H (70-100) mg/dL POC Whole Bld Glucose (70 - 100) mg/dL Calcium 8.2 L (8.5-10.3) mg/dL Total Bilirubin 0.6 (0.2-1.0) mg/dL AST 32 (10-42) IU/L ALT 11 (10-60) IU/L Alkaline Phosphatase 48 (42-121) IU/L Total Protein 6.0 L (6.7-8.2) g/dL Albumin 3.1 L (3.2-5.5) g/dL Globulin 2.9 (2.1-4.2) g/dL Albumin/Globulin Ratio 1.1 (1.0-2.2) - Other Results/Comments Other Results/Comments: See above for results. Improved as noted except incisional pain. She may be splinting a bit when doing IS. Plan local anesthesia at those two sites to improve breathing and pain. Otherwise stable. If continues to improve, could consider DC home tomorrow.
[2020-01-07] MEDS ORDERED: BUPIVACAINE 0.5%-EPI 1:200000 PF 30 ML VIAL ID ONE (18:21)
[2020-01-08] MEDS: LACTATED RINGERS 1,000 ML IV SCH ×2 (00:29→10:35)
[2020-01-08] MEDS: ACETAMINOPHEN 1,000 MG/100 ML 100 ML IV PRN ×2 (03:20→12:33)
[2020-01-08] MEDS: INSULIN ASPART 300 UNIT/3 ML PEN SUBQ SCH ×3 (08:17→17:12)
[2020-01-08] MEDS ORDERED: DOCUSATE SODIUM 250 MG CAPSULE PO SCH (09:00)
[2020-01-08] MEDS ORDERED: SENNA 8.6 MG TABLET PO SCH (09:00)
[2020-01-08] MEDS: NICOTINE 14 MG PATCH TOP SCH (09:40)
[2020-01-08] MEDS: SODIUM CHLORIDE FLUSH 0.9% 10 ML SYRINGE IVP SCH ×2 (09:41→17:20)
[2020-01-08] MEDS: ENOXAPARIN 30 MG/0.3 ML SYRINGE SUBQ SCH (09:41)
[2020-01-08] MEDS: GABAPENTIN 300 MG CAPSULE PO SCH (09:41)
[2020-01-08] MEDS: oxyCODONE 5 MG TABLET PO PRN (09:41)
[2020-01-08] MEDS ORDERED: MAGNESIUM CITRATE 296 ML BOTTLE PO SCH (12:10)
--- NOTE | 2020-01-08 12:17 | PHARMACY PROGRESS NOTE ---
- Best Possible Medication History Admit Date and Time: 01/07/20 1235 Processed by: Pharmacy Medication History completed: Yes Patient Interview: Completed Secondary Source(s): Written medication list, Pharmacy records As the person ultimately responsible for medication therapy, providers are able to order a medication from an existing home medication list in [facility] via the "Reconcile Routine" prior to Confirmation of that medication by lan support specialist. Such practice is discouraged except when the physician, in their clinical judgment, deems that a medical need exists for a medication without regard to previous use.
[2020-01-08] MEDS ORDERED: amLODIPine 5 MG TABLET PO SCH (12:30)
--- NOTE | 2020-01-08 12:40 | PROVIDER PROGRESS NOTE ---
Subjective - Prog Note Date Prog Note Date: 01/08/20 Prog Note Time: 12:38 - Subjective Subjective: POD 3 from [facility] complicated by pain management and mild ileus. Has had persistent oxygen requirement, partially weaned yesterday. Today, c/o abdominal cramping; no BM since admission. Feeling very constipated. Otherwise tolerating regular diet, ambulating without difficulty. VSS afeb 1950cc urine out FBS 94 Objective - Vital Signs/Intake & Output Vital Signs: Vital Signs x48h Temp Pulse Resp BP Pulse Ox 01/08/20 07:49 98.8 F 98 20 139/68 H 93 Intake & Output: Intake & Output 01/05/20 01/06/20 01/07/20 01/08/20 23:59 23:59 23:59 23:59 Intake Total 2911.667 2628.333 2621.667 2291.667 Output Total 1075 1510 2350 1950 Balance 9408.843 9321.333 271.667 341.667 - Objective General Appearance: positive: No acute distress, Alert Respiratory: positive: Chest non-tender, Other (Few scattered crackles.) Cardiovascular: positive: Regular rate & rhythm Abdomen: positive: Non-tender, Other (Incisions D&I, healing well, completely non-tender. Abd mildly distended diffusely.) Skin: positive: Warm, Dry Extremities: positive: Non-tender, Pedal edema (Trace) Neurologic/Psychiatric: positive: Oriented x3 - Lab Results Fish Bones: 01/07/20 04:15 01/07/20 04:15 Other Labs: Lab Results x24hrs 01/08/20 01/08/20 01/07/20 Range/Units 11:14 07:46 20:55 POC Whole Bld Glucose 149 H 94 183 H (70 - 100) mg/dL 01/07/20 Range/Units 16:50 POC Whole Bld Glucose 121 H (70 - 100) mg/dL Assess/Plan - Patient Problems Active Problems List: Current Active Problems Status post hysterectomy (Acute) - Additional Planning Condition/Complexity: Stable (69yo POD 3 from [facility] much improved. Mag citrate and senna given for constipation. Now completely weaned from O2; sats >94% on RA Tolerating regular diet Ambulating Plan DC home. Instructions and precautions discussed. F/U as scheduled next week.) My Orders: My Active Orders 01/08/20 12:10 Magnesium Citrate 180 - 240 ml PO ONCE 01/08/20 13:00 hydroCHLOROthiazide [Hydrodiuril] 12.5 mg PO DAILY lisinopriL [Zestril] 10 mg PO DAILY 01/08/20 17:00 metFORMIN [Glucophage] 500 mg PO BIDWM
[2020-01-08] MEDS ORDERED: lisinopriL 5 MG TABLET PO SCH (13:00)
[2020-01-08] MEDS ORDERED: hydroCHLOROthiazide 12.5 MG CAPSULE PO SCH (13:00)
--- NOTE | 2020-01-08 13:01 | DISCHARGE SUMMARY ---
"Discharge Summary Admit Date: 01/05/20 Discharge Date: 01/08/20 Discharging Provider: Marti Keane Code Status: Attempt Resuscitation Condition at Discharge: Good Discharge Disposition: 01 Home, Self Care - DIAGNOSES Admission Diagnoses: Endometrial polyps, postmenopausal bleeding - HPI History of Present Illness: 69yo >3 who presented for LAVH secondary to recurrent endometrial polyps and bleeding. - CONSULTS | PROCEDURES Procedures: LAVH, cystoscopy - HOSPITAL COURSE Hospital Course: Pt underwent LAVH and cystoscopy on 01/04. Her post op course was complicated by a mild ileus, persistent oxygen requirement and pain management difficulty. She had progressive improvement with conservative management, ie ambulation, incentive spirometry, pain control alternatives to narcotics. On the day of DC she was tolerating a regular diet, ambulating and had no further O2 requirement. She was given senna and mag citrate to treat her constipation and bloating. Her incisions were healing well. Blood sugars remained minimally elevated postprandial. FBS on day of DC was 94. - ALLERGIES Allergies/Adverse Reactions: Allergies Allergy/AdvReac Type Severity Reaction Status Date / Time cinnamon [Cinnamon] Allergy Anaphylaxis Verified 07/29/16 20:27 contact metal agent AdvReac Hives Verified 01/05/20 06:55 - MEDICATIONS Home Medications: Ambulatory Orders Medication Instructions Recorded Confirmed Hydrochlorothiazide 12.5 mg PO DAILY 09/02/14 01/05/20 Metformin HCl 500 mg PO BIDWM 09/02/14 01/08/20 Multivitamin [Multiple Vitamins] 1 tab PO DAILY 09/28/15 01/05/20 lisinopriL [Lisinopril] 10 mg PO DAILY 09/28/15 01/05/20 Amlodipine Besylate 10 mg PO DAILY 11/16/19 12/28/19 Fluticasone [Flonase] 1 sprays GRETEL DAILY PRN 11/16/19 12/28/19 Insulin Glargine [Lantus Solostar] 10 unit SQ QPM 11/16/19 01/05/20 Rosuvastatin Calcium 10 mg PO QPM 11/16/19 01/08/20 - PHYSICAL EXAM AT DISCHARGE General Appearance: positive: No acute distress, Alert Respiratory: positive: Chest non-tender, Other (Few scattered crackles) Cardiovascular: positive: Regular rate & rhythm, No murmur Abdomen: positive: Non-tender (Mild diffuse distension. Incisions D&I, healing well, completley non-tender.), Nml bowel sounds Skin: positive: Color nml, Warm, Dry Extremities: positive: Non-tender (Trace pedal edema) Neurologic/Psychiatric: positive: Oriented x3, Mood/affect nml - LABS Result Diagrams: 01/07/20 04:15 01/07/20 04:15"
--- NOTE | 2020-01-08 13:12 | Discharge Plan ---
Discharge Plan Problem Reviewed?: Yes Disposition: Home, Self Care Diet: Diabetic Activity Restrictions: Activity as Tolerated Shower Restrictions: No Driving Restrictions: No No Smoking: If you smoke, Please STOP! Call for help. Follow-up with: Ila Walsh PA-C [Primary Care Provider] -
[2020-01-08] MEDS ORDERED: metFORMIN 500 MG TABLET PO SCH (17:00)
[2020-01-08 18:55] VITALS: BP 145/74
== END 2020-01-08 19:26 | disposition home or self-care (01) | DRG 206 ==
LOC: SDS 06:07 → MS2 15:39 → SDS 01-06 15:46 → MS2 01-06 15:47 → OBSVTOIN 01-07 12:35
PROVIDERS: ADMIT Obstetrics & Gynecology; ATTEND Obstetrics & Gynecology
PROC: 0UT74ZZ Resection of Bilateral Fallopian Tubes, Percutaneous Endoscopic Approach (ICD-10-PCS; 2020-01-05)
PROC: 0DNW4ZZ Release Peritoneum, Percutaneous Endoscopic Approach (ICD-10-PCS; 2020-01-05)
PROC: 0UT94ZZ Resection of Uterus, Percutaneous Endoscopic Approach (ICD-10-PCS; principal; 2020-01-05 07:30)
DX: J98.11 Atelectasis (principal); K91.30 Postprocedural intestinal obstruction, unspecified as to partial versus complete; I38 Endocarditis, valve unspecified; C64.2 Malignant neoplasm of left kidney, except renal pelvis; Y83.6 Removal of other organ (partial) (total) as the cause of abnormal reaction of the patient, or of later complication, without mention of misadventure at the time of the procedure; Y92.234 Operating room of hospital as the place of occurrence of the external cause; N84.0 Polyp of corpus uteri; N95.0 Postmenopausal bleeding; K66.0 Peritoneal adhesions (postprocedural) (postinfection); G89.18 Other acute postprocedural pain; R11.0 Nausea; R42 Dizziness and giddiness; T40.605A Adverse effect of unspecified narcotics, initial encounter; Y92.230 Patient room in hospital as the place of occurrence of the external cause; I10 Essential (primary) hypertension; E11.65 Type 2 diabetes mellitus with hyperglycemia; F17.210 Nicotine dependence, cigarettes, uncomplicated; E78.1 Pure hyperglyceridemia; K59.09 Other constipation; G89.29 Other chronic pain; M54.9 Dorsalgia, unspecified; M19.90 Unspecified osteoarthritis, unspecified site; E66.9 Obesity, unspecified; Z68.37 Body mass index [BMI] 37.0-37.9, adult; M51.84 Other intervertebral disc disorders, thoracic region; J30.9 Allergic rhinitis, unspecified; H54.7 Unspecified visual loss; Z79.4 Long term (current) use of insulin; I25.2 Old myocardial infarction; Z90.5 Acquired absence of kidney
CPT/HCPCS: 36415; 49329; 58571; 71046; 74019; 80048; 80053; 82565; 83036; 85025; 86850; 86900; 86901; A9270; G0378; J0131; J0690; J1170; J1650; J2765; J7120

== ENCOUNTER 2020-01-31 10:37 | Outpatient (CLI) | payer MEDICARE, OTHER ==
--- NOTE | 2020-01-31 11:11 | Mammography Report ---
Reason: ABN MAMMO - RT SPEC VIEWS Procedure Date: 01/31/2020 Accession Number: [id number] / [id number] Procedure: PEPPER - Diag Special Views Dig RT CPT Code: Final Report FULL RESULT: EXAM: Diag Special Views Dig RT DATE: 01/31/2020 11:03 AM CLINICAL HISTORY: Diagnostic examination. The patient is recalled from screening for possible development of a grouping of calcifications in the right breast. TECHNIQUE: (R) - Right right magnified CC, right ML and right magnified ML images are obtained. COMPARISON: 12/16/2019 through 07/12/2010. PARENCHYMAL PATTERN: (D) - The breast(s) demonstrate(s) heterogeneously dense fibroglandular parenchyma. FINDINGS: The punctate calcifications in question in the right lateral breast approximately 5 cm from the nipple do not form a convincing grouping and appear typically benign. There are no suspicious masses, calcifications, or areas of distortion. IMPRESSION: Benign findings. BI-RADS category 2. RECOMMENDATION: (ANNUAL) - Recommend routine annual screening mammography. BI-RADS CATEGORY: (2) - Benign Findings. STANDARD QUALIFYING STATEMENTS: 1. This examination was not reviewed with the aid of Computer-Aided Detection (CAD). 2. A negative or benign imaging report should not preclude biopsy if clinically suspicious findings are present. 3. Dense breasts may obscure an underlying neoplasm. 4. This examination was reviewed with the aid of 3D breast imaging (tomosynthesis).
== END 2020-01-31 10:38 | disposition home or self-care (01) ==
LOC: DI 10:37
PROVIDERS: ATTEND Obstetrics & Gynecology
DX: R92.8 Other abnormal and inconclusive findings on diagnostic imaging of breast (principal)

== ENCOUNTER 2020-08-17 14:16 | Emergency (ER) | payer MEDICARE, OTHER ==
--- NOTE | 2020-08-17 15:06 | ED Physician Documentation ---
History of Present Illness - Stated complaint Stated Complaint: LFT ARM NUMBNESS/PX - Chief complaint Chief Complaint: General - History obtained from History obtained from: Patient - History of Present Illness Timing: How many weeks ago (1) Pain level max: 3 Pain level now: 0 - Additonal information Additional information: 70-year-old female presents to the emergency department complaining of sharp right-sided chest pain that lasts for 3 to 4 minutes at a time over the past week. Currently asymptomatic. Nothing makes it better or worse. No cough. No fever. No chills. She also states that occasionally her left arm near the antecubital fossa will go numb when she is asleep and "wake her up". She says it is not painful. Does not occur during the day. Nothing makes it better or worse. No other neurological deficits. Review of Systems Ten Systems: 10 systems reviewed and negative Constitutional: denies: Fever, Chills, Myalgias Ears: denies: Ear pain Nose: denies: Rhinorrhea / runny nose, Congestion Throat: denies: Sore throat Cardiac: denies: Pedal edema, Calf pain Respiratory: denies: Dyspnea, Cough, Hemoptysis, Wheezing GI: denies: Abdominal Pain, Nausea, Vomiting, Diarrhea Skin: denies: Rash Musculoskeletal: denies: Neck pain, Back pain Neurologic: denies: Headache PD PAST MEDICAL HISTORY - Past Medical History Past Medical History: Yes Cardiovascular: Hypertension, High cholesterol, [place], Valve disorder Respiratory: None Neuro: None Endocrine/Autoimmune: Type 2 diabetes GI: Chronic constipation 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 : Other HEENT: Chronic vision loss Psych: Other Musculoskeletal: Osteoarthritis, Chronic back pain, Other Derm: Other - Past Surgical History Past Surgical History: No /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: 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 and currettage, Other Cardiovascular:  - Present Medications Home Medications: Ambulatory Orders Medication Instructions Recorded Confirmed Hydrochlorothiazide 12.5 mg PO DAILY 09/02/14 01/05/20 Metformin HCl 500 mg PO BIDWM 09/02/14 01/08/20 Multivitamin [Multiple Vitamins] 1 tab PO DAILY 09/28/15 01/05/20 lisinopriL [Lisinopril] 10 mg PO DAILY 09/28/15 01/05/20 Amlodipine Besylate 10 mg PO DAILY 11/16/19 12/28/19 Fluticasone [Flonase] 1 sprays GRETEL DAILY PRN 11/16/19 12/28/19 Insulin Glargine [Lantus Solostar] 10 unit SQ QPM 11/16/19 01/05/20 Rosuvastatin Calcium 10 mg PO QPM 11/16/19 01/08/20 Acetaminophen [Tylenol] 325 mg PO Q4HR PRN tablet 01/08/20 Docusate Sodium 250Mg Capsule 250 - 500 mg PO DAILY capsule 01/08/20 [Colace 250Mg Capsule] Insulin Aspart [NovoLOG] 1 - 5 unit SUBQ 01/08/20 0800,1200,1700,2100 pen hydroCHLOROthiazide [Hydrodiuril] 12.5 mg PO DAILY capsule 01/08/20 lisinopriL [Zestril] 10 mg PO DAILY tablet 01/08/20 metFORMIN [Glucophage] 500 mg PO BIDWM tablet 01/08/20 Cyclobenzaprine [Flexeril] 10 mg PO TID PRN #10 tablet 03/10/20 - Allergies Allergies/Adverse Reactions: Allergies Allergy/AdvReac Type Severity Reaction Status Date / Time cinnamon [Cinnamon] Allergy Anaphylaxis Verified 08/17/20 14:34 contact metal agent AdvReac Hives Verified 08/17/20 14:34 - Living Situation Living Arrangement: reports: At home - Social History Does the pt smoke?: Yes Smoking Status: Current every day smoker Does the pt drink ETOH?: No Does the pt have substance abuse?: No - Immunizations Immunizations are current?: Yes PD ED PE NORMAL - Vitals Vital signs reviewed: Yes - General General: Alert and oriented X 3, No acute distress, Well developed/nourished - HEENT HEENT: PERRL, Moist mucous membranes - Neck Neck: Supple, no meningeal sign - Cardiac Cardiac: RRR, Strong equal pulses - Respiratory Respiratory: No respiratory distress, Clear bilaterally, Other (No tenderness over the anterior chest wall.) - Abdomen Abdomen: Soft, Non tender, Non distended - Back Back: No spinal TTP - Derm Derm: Warm and dry - Extremities Extremities: No deformity, No tenderness to palpate, Normal ROM s pain - Neuro Neuro: Alert and oriented X 3, pharmacy ancillary 2-12 intact, No motor deficit, No sensory deficit - Psych Psych: Normal mood, Normal affect Results - Vitals Vitals: Vital Signs - 24 hr 08/17/20 08/17/20 14:21 16:04 Temperature 36.7 C 36.8 C Heart Rate 96 88 Respiratory 16 16 Rate Blood Pressure 129/63 126/74 O2 Saturation 99 99 Oxygen O2 Source Room air - EKG (time done) 1423 Rate: Rate (enter#) (94) Rhythm: NSR Allison: Normal Intervals: Normal VT QRS: Normal Ischemia: Normal ST segments - Labs Labs: Laboratory Tests 08/17/20 08/17/20 08/17/20 15:10 15:10 15:10 WBC 9.5 RBC 4.75 Hgb 13.2 Hct 40.1 MCV 84.4 MCH 27.8 MCHC 32.9 RDW 14.8 Plt Count 302 MPV 10.0 Neut # (Auto) 5.8 Lymph # (Auto) 2.8 [place] # (Auto) 0.5 Eos # (Auto) 0.3 Baso # (Auto) 0.1 Absolute Nucleated RBC 0.00 Nucleated RBC % 0.0 Sodium 138 Potassium 3.8 Chloride 101 Carbon Dioxide 25 Anion Gap 12.0 BUN 17 Creatinine 0.9 Estimated GFR (MDRD) 75 L Glucose 106 H Calcium 9.4 Total Bilirubin 0.5 AST 18 ALT 15 Alkaline Phosphatase 61 Troponin I High Sens 3.6 Total Protein 6.9 Albumin 3.9 Globulin 3.0 Albumin/Globulin Ratio 1.3 Lipase 44 - Rads (name of study) cxr Radiology: Prelim report reviewed, EMP read contemporaneously, See rad report (no acute disease) PD MEDICAL DECISION MAKING - ED course Complexity details: reviewed results, re-evaluated patient, considered differential (No ST elevation AK, no aortic dissection, no PE, no tension pneumothorax, no aortic aneurysm), d/w patient ED course: No acute findings on chest x-ray, EKG or laboratory testing. Asymptomatic here. We will have her follow-up with her doctor for further care. Patient is well- appearing, nontoxic. Afebrile. No focal neurological deficits. No evidence of stroke. Ambulating well. No evidence of PE. No evidence of aortic dissection. Patient counseled regarding signs and symptoms for which I believe and urgent re-evaluation would be necessary. Patient with good understanding of and agreement to plan and is comfortable going home at this time This document was made in part using voice recognition software. While efforts are made to proofread this document, sound alike and grammatical errors may occur. Departure - Departure Disposition: 01 Home, Self Care Clinical Impression: Paresthesia Chest pain Qualifiers: Chest pain type: unspecified Qualified Code(s): R07.9 - Chest pain, unspecified Condition: Good Instructions: ED Chest Pain Atypical Unkn Cause, ED Paraesthesias Follow-Up: Ila Walsh PA-C [Primary Care Provider] - Within 1 week Comments: The cause of your symptoms is unclear today. Follow-up with your doctor for further care. All of your testing is normal today. Discharge Date/Time: 08/17/20 16:05 NIHSS - Time Time: 15:00 - Level of Consciousness Level of consciousness: (0) Alert, Keenly responsive LOC Questions: (0) Answers both Q's correct LOC Commands: (0) Performs both correctly - Gaze Best Gaze: (0) Normal - Visual Visual: (0) No loss - Facial Palsy Facial Palsy: (0) Normal, symmetrical movement - Motor Arms (both separate) Motor Arm (right): (0) No drift Motor Arm (left): (0) No drift - Motor Legs (both separate) Motor Leg (right): (0) No drift Motor Leg (left): (0) No drift - Limb Ataxia Limb Ataxia: (0) Absent - Sensory Sensory: (0) Normal - Best Language Best Language: (0) No aphasia - Dysarthria Dysarthria: (0) Normal - Extinction and Inattention (formally neg Extinction and inattention: (0) No abnormality - Total Score/Results Total Score/Result: 0
[2020-08-17 15:31] LABS: BASOPHILS # (AUTO) 0.1 10^3/uL (0.0-0.1); BASOPHILS % (AUTO) 0.5 %; EOSINOPHILS # (AUTO) 0.3 10^3/uL (0.0-0.7); EOSINOPHILS % (AUTO) 3.3 %; HGB - HEMOGLOBIN 13.2 g/dL (12.0-16.0); LYMPHOCYTES # (AUTO) 2.8 10^3/uL (1.5-3.5); LYMPHOCYTES % (AUTO) 29.9 %; MEAN CORPUSCULAR HEMOGLOBIN 27.8 pg (27.0-31.0); MEAN CORPUSCULAR HGB CONC 32.9 g/dL (32.0-36.0); MEAN CORPUSCULAR VOLUME 84.4 fL (81.0-99.0); MONOCYTES # (AUTO) 0.5 10^3/uL (0.0-1.0); MONOCYTES % (AUTO) 5.5 %; NEUTROPHILS # (AUTO) 5.8 10^3/uL (1.5-6.6); NEUTROPHILS % (AUTO) 60.5 %; PLT - PLATELET COUNT 302 10^3/uL (130-450); RED BLOOD COUNT 4.75 10^6/uL (4.20-5.40); RED CELL DISTRIBUTION WIDTH 14.8 % (12.0-15.0); WHITE BLOOD COUNT 9.5 x10^3/uL (4.8-10.8)
--- NOTE | 2020-08-17 15:37 | XRAY Report ---
PROCEDURE: Chest 1 View X-Ray INDICATIONS: Chest Pain TECHNIQUE: One view of the chest was acquired. COMPARISON: 01/07/2020 FINDINGS: Surgical changes and devices: None. Lungs and pleura: No pleural effusions or pneumothorax. Lungs are clear. Mediastinum: Mediastinal contours appear normal. Heart size is normal. Bones and chest wall: No suspicious bony lesions. Overlying soft tissues appear unremarkable. IMPRESSION: No acute cardiopulmonary pathology. Reviewed by: Jerome Richmond MD on 08/17/2020 2:36 PM AKDT Approved by: Jerome Richmond MD on 08/17/2020 2:36 PM AKDT Station ID: [id number]
[2020-08-17 15:44] LABS: ALBUMIN 3.9 g/dL (3.2-5.5); ALBUMIN/GLOBULIN RATIO 1.3 (1.0-2.2); BILIRUBIN,TOTAL 0.5 mg/dL (0.2-1.0); CALCIUM 9.4 mg/dL (8.5-10.3); CREATININE 0.9 mg/dL (0.4-1.0); TOTAL PROTEIN 6.9 g/dL (6.7-8.2)
[2020-08-17 16:05] VITALS: BP 126/74
== END 2020-08-17 16:05 | disposition home or self-care (01) ==
LOC: ED 14:16
DX: R07.9 Chest pain, unspecified (principal); R20.2 Paresthesia of skin; I25.2 Old myocardial infarction; I10 Essential (primary) hypertension; E11.9 Type 2 diabetes mellitus without complications; Z79.4 Long term (current) use of insulin; F17.200 Nicotine dependence, unspecified, uncomplicated
CPT/HCPCS: 36415; 71045; 80053; 83690; 84484; 85025; 93005; 99284

== ENCOUNTER 2020-11-17 11:45 | Outpatient (CLI) | payer MEDICARE, OTHER ==
[2020-11-17 17:53] LABS: BASOPHILS # (AUTO) 0.1 10^3/uL (0.0-0.1); BASOPHILS % (AUTO) 0.8 %; EOSINOPHILS # (AUTO) 0.3 10^3/uL (0.0-0.7); EOSINOPHILS % (AUTO) 3.7 %; HGB - HEMOGLOBIN 13.4 g/dL (12.0-16.0); LYMPHOCYTES # (AUTO) 2.6 10^3/uL (1.5-3.5); LYMPHOCYTES % (AUTO) 28.4 %; MEAN CORPUSCULAR HGB CONC 31.5 g/dL (32.0-36.0); MEAN CORPUSCULAR VOLUME 85.9 fL (81.0-99.0); MEAN PLATELET VOLUME 10.7 fL (7.9-10.8); MONOCYTES # (AUTO) 0.7 10^3/uL (0.0-1.0); MONOCYTES % (AUTO) 7.3 %; NEUTROPHILS # (AUTO) 5.4 10^3/uL (1.5-6.6); NEUTROPHILS % (AUTO) 59.5 %; PLT - PLATELET COUNT 295 10^3/uL (130-450); RED BLOOD COUNT 4.96 10^6/uL (4.20-5.40)
[2020-11-17 18:10] LABS: ALBUMIN 3.9 g/dL (3.2-5.5); ALKALINE PHOSPHATASE 62 IU/L (42-121); ALT ALANINE AMINOTRANSFERASE 20 IU/L (10-60); AST ASPARTATE AMINOTRANSFERASE 22 IU/L (10-42); BILIRUBIN,TOTAL 0.5 mg/dL (0.2-1.0); BUN - BLOOD UREA NITROGEN 24 mg/dL (6-20); CALCIUM 9.6 mg/dL (8.5-10.3); CARBON DIOXIDE - CO2 25 mmol/L (21-32); CHLORIDE 106 mmol/L (101-111); GLUCOSE 79 mg/dL (70-100); TOTAL PROTEIN 7.1 g/dL (6.7-8.2)
[2020-11-17 18:11] LABS: ALBUMIN/GLOBULIN RATIO 1.2 (1.0-2.2); CHOL/HDL RATIO 2.6 (<4.4); CHOLESTEROL 105 mg/dL; HDL CHOLESTEROL 40 mg/dL; LDL CHOLESTEROL,CALCULATED 47 mg/dL; LDL/HDL RATIO 1.2 (<4.4); VLDL CHOLESTEROL 18 mg/dL
[2020-11-17 18:54] LABS: CREATININE,URINE 72.6 mg/dL; MICROALBUM/CREATININE RATIO,UR 235.5 ug/mg (<30.0); MICROALBUMIN,URINE 17.1 mg/dL (0-300.0)
== END 2020-11-17 11:46 | disposition home or self-care (01) ==
LOC: LAB.N 11:45
PROVIDERS: ATTEND Registered Nurse
DX: E11.9 Type 2 diabetes mellitus without complications (principal); C64.2 Malignant neoplasm of left kidney, except renal pelvis; I10 Essential (primary) hypertension; E78.1 Pure hyperglyceridemia
CPT/HCPCS: 36415; 80053; 80061; 82043; 82570; 83036; 83721; 84443; 85025

== ENCOUNTER 2020-11-21 10:54 | Outpatient (CLI) | payer MEDICARE, OTHER ==
[2020-11-21] MEDS ORDERED: IOVERSOL 320 100 ML VIAL IVP ONE ×2 (11:10→13:32)
--- NOTE | 2020-11-21 16:28 | CT Report ---
PROCEDURE: ABDOMEN W/WO INDICATIONS: HISTORY OF RENAL CELL CA CONTRAST: IV CONTRAST: Optiray 320 ml: 140 PO CONTRAST: *NO PO CONTRAST TECHNIQUE: Noncontrast images obtained through the abdomen. After the administration of intravenous contrast, 5 mm thick sections acquired from the diaphragm to the symphysis during the arterial and delayed phases . 5 mm coronal and sagittal reformats were acquired. For radiation dose reduction, the following wa s used: automated exposure control, adjustment of mA and/or kV according to patient size. COMPARISON: CT abdomen 01/03/2017, 09/26/2015. FINDINGS: Image quality: Excellent. Lung bases: There is mild atelectasis and scarring the lung bases. Heart size is normal. There is a s mall hiatal hernia. Genitourinary: Postsurgical changes are redemonstrated status post partial left nephrectomy in the i nferior pole the left kidney. Posteriorly within the interpolar region of the left kidney, there is a n enhancing small oval mass measuring 2.0 x 1.9 x 2.2 cm. More medially there is an enhancing mass me asuring up to 2.0 x 1.9 x 1.8 cm. An adjacent smaller mass measures up to 1.3 x 1.1 cm in transverse dimension. The findings most likely represent recurrent renal cell carcinoma. A few additional small hypodense foci are also demonstrated elsewhere in the left kidney which are too small to characterize but are also suspicious for neoplasm. The findings are new compared to the prior studies. Within the left kidney, there is also a new mass anteriorly within the superior pole measuring up to 1.5 x 1.5 cm in transverse dimension also demonstrating internal enhancement. The findings are also consistent with renal cell carcinoma. There is a small cortical cyst within the inferior pole. No evidence of ad jacent solid organ invasion or renal vein invasion. Kidneys demonstrate no hydronephrosis. There are opacified renal quadrant consistent demonstrate no discrete suspicious filling defects. Solid organs: There are a few small indistinct foci of peripheral enhancement in the liver during the arterial phase which appear isoattenuating on the delayed images compatible with small areas of vasc ular shunting. Biliary system is non dilated. The spleen is normal in size. Pancreas enhances normall y without a discrete mass identified. No adrenal nodules. Peritoneum and bowel: Visualized bowel loops are normal in caliber and wall thickness. No free fluid or air. Nodes and vessels: No retroperitoneal or mesenteric adenopathy by size criteria. There is dilatatio n of the left gonadal vein partially visualized anterior to the left psoas muscle. Aorta and inferior vena cava are normal in caliber. Bones: No suspicious bony lesions. No vertebral body compression fractures. Miscellaneous: There is a small fat-containing umbilical hernia partially visualized. IMPRESSION: 1. Multiple new bilateral enhancing renal mass lesions most likely representing recurrent multifocal renal cell carcinoma. No evidence of adjacent perinephric invasion or renal vein invasion. 2. No definite evidence of metastatic disease in the abdomen. A small ovoid lesion anterior to the le ft psoas likely represents a partially visualized dilated left gonadal vein. Reviewed by: Chris Zhang MD on 11/21/2020 4:27 PM PST Approved by: Chris Zhang MD on 11/21/2020 4:27 PM PST Station ID: [id number]
== END 2020-11-21 10:55 | disposition home or self-care (01) ==
LOC: DI 10:54
PROVIDERS: ATTEND Urology
DX: Z08 Encounter for follow-up examination after completed treatment for malignant neoplasm (principal); N28.89 Other specified disorders of kidney and ureter; R93.5 Abnormal findings on diagnostic imaging of other abdominal regions, including retroperitoneum; Z85.528 Personal history of other malignant neoplasm of kidney
CPT/HCPCS: 74170; Q9967

== ENCOUNTER 2020-11-21 11:52 | Outpatient (CLI) | payer MEDICARE, OTHER ==
--- NOTE | 2020-11-21 16:46 | XRAY Report ---
PROCEDURE: Chest 2 View X-Ray INDICATIONS: HISTORY OF RENAL CELL CA TECHNIQUE: 2 view(s) of the chest. COMPARISON: 08/17/2020 FINDINGS: Surgical changes and devices: None. Lungs and pleura: No pleural effusions or pneumothorax. Lungs are clear. Mediastinum: Mediastinal contours are normal. Heart size is normal. Bones and chest wall: No suspicious bony abnormalities. Soft tissues appear unremarkable. IMPRESSION: No acute process. Reviewed by: Elyssa Gabriel MD on 11/21/2020 4:44 PM PST Approved by: Elyssa Gabriel MD on 11/21/2020 4:44 PM PST Station ID: [id number]
== END 2020-11-21 11:53 | disposition home or self-care (01) ==
LOC: DI 11:52
PROVIDERS: ATTEND Urology
DX: Z85.528 Personal history of other malignant neoplasm of kidney (principal)

== ENCOUNTER 2021-02-20 13:58 | Outpatient (CLI) | payer MEDICARE, OTHER ==
--- NOTE | 2021-02-20 16:25 | DEXA Report ---
PROCEDURE: Dexa Spine and/or Hip INDICATIONS: PRIOR SMOKER, POST MENOPAUSAL TECHNIQUE: Dual energy x-ray absorptiometry (DXA) was performed on a [employer] System. Regions measur ed are the AP Spine, femoral neck, and if needed forearm. COMPARISON: None. FINDINGS: Lumbar Spine: Bone Mineral Density 1.068 g/cm/cm,T score -0.9, normal Left Hip: Bone Mineral Density 0.912 g/cm/cm,T score -0.8, normal Left Femoral Neck: Bone Mineral Density 0.870 g/cm/cm, T score -1.2, osteopenia (T score greater or equal to -1.0: NORMAL) (T score from -1.1 to -2.4: OSTEOPENIA) (T score less than or equal to -2.5 to: OSTEOPOROSIS) Impression: Normal bone mineral density of the lumbosacral spine and left hip overall, and osteopenia is present at the left femoral neck on targeted imaging. Patients with diagnosis of osteoporosis or osteopenia should have regular bone mineral density assess ment. For those eligible for Medicare, routine testing is allowed once every 2 years. Testing frequ ency can be increased for patients who have rapidly progressing disease or for those who are receivin g medical therapy to restore bone mass. Reviewed by: Sonny Payne MD on 02/20/2021 4:24 PM PDT Approved by: Sonny Payne MD on 02/20/2021 4:24 PM PDT Station ID: [id number]
--- NOTE | 2021-02-21 08:38 | CT Report ---
PROCEDURE: Low Dose Lung Cancer Screen INDICATIONS: ROUTINE MAMMO TECHNIQUE: Noncontrast low-dose 5 mm thick sections acquired from the pulmonary apices to the posterior costophr enic angles. 7 mm thick coronal and sagittal MIP reformats were then acquired. For radiation dose r eduction, the following was used: automated exposure control, adjustment of mA and/or kV according t o patient size. COMPARISON: None. FINDINGS: Image quality: Excellent. Lungs and pleura: The central airways are clear. No suspicious pulmonary nodule or mass. No signific ant pleural abnormality Mediastinum: Coronary and aortic atherosclerosis. Normal heart size. No pericardial effusion. No surg ical enlarged mediastinal lymph nodes by CT size criteria.. Bones and chest wall: No suspicious bony lesions. No vertebral body compression fractures. No axil joslyn or supraclavicular adenopathy by size criteria. The thyroid is normal in size. Abdomen: The kidneys are only partially visualized and not well evaluated due to lack of IV contrast. Within this limitation, however, the multiple previously identified bilateral renal masses are redem onstrated, with a lesion in the left posterior kidney being the most conspicuous. These remain suspic ious for multifocal recurrent renal cell carcinoma. IMPRESSION: Lung RADS category 1S: No suspicious pulmonary nodule or mass, but with clinically significant lung f indings. Multiple bilateral renal masses, highly suspicious for recurrent/metachronous renal cell carcinoma. P lease see abdominal CT report from 11/21/2020 for more detailed description. The lesions are only rebeca tly visualized on the current study due to the lack of IV contrast and only partial visualization of the kidneys. Coronary and aortic atherosclerosis. Reviewed by: Aj Glass MD on 02/21/2021 8:37 AM PDT Approved by: Aj Glass MD on 02/21/2021 8:37 AM PDT Station ID: [id number]
== END 2021-02-20 13:59 | disposition home or self-care (01) ==
LOC: DI 13:58
PROVIDERS: ATTEND Physician Assistant Medical
DX: Z12.2 Encounter for screening for malignant neoplasm of respiratory organs (principal); R91.8 Other nonspecific abnormal finding of lung field; N28.89 Other specified disorders of kidney and ureter; M85.88 Other specified disorders of bone density and structure, other site; I25.10 Atherosclerotic heart disease of native coronary artery without angina pectoris; I70.0 Atherosclerosis of aorta; Z87.891 Personal history of nicotine dependence

== ENCOUNTER 2021-02-20 14:02 | Outpatient (CLI) | payer MEDICARE, OTHER ==
--- NOTE | 2021-02-21 13:08 | Mammography Report ---
BILATERAL DIGITAL SCREENING MAMMOGRAM 3D/2D: 02/20/2021 CLINICAL: Routine screening. Comparison is made to exams dated: 12/16/2019 mammogram, 08/25/2018 mammogram, 06/20/2014 mammogram, mammogram, and 03/13/2012 mammogram - [facility]. There are scattered fibr oglandular elements in both breasts. There are benign calcifications in the left breast. No significant masses, calcifications, or other findings are seen in either breast. There has been no significant interval change. IMPRESSION: BENIGN There is no mammographic evidence of malignancy. A 1 year screening mammogram is recommended. This exam was interpreted at Station ID: [id number]. NOTE: For mammograms, a report in lay terms will be sent to the patient. Approximately 15% of breast malignancies will not be visualized mammographically. In the management of a palpable breast mass, a negative mammogram must not discourage biopsy of a clinically suspicious lesion. Electronically Signed By: Chris Zhang M.D. [email or web address]/penrad:02/20/2021 15:24:21 ACR BI-RADS Category 2: Benign Finding(s) 3342F PARENCHYMAL PATTERN: (A) - The breast(s) demonstrate(s) scattered fibroglandular densities. BI-RADS CATEGORY: (2) - 2 RECOMMENDATION: (ANNUAL) - Recommend routine annual screening mammography. [id number] 1 year screening LATERALITY: (B)
== END 2021-02-20 14:03 | disposition home or self-care (01) ==
LOC: DI 14:02
PROVIDERS: ATTEND Physician Assistant Medical
DX: Z12.31 Encounter for screening mammogram for malignant neoplasm of breast (principal)

== ENCOUNTER 2021-05-20 17:54 | Emergency (ER) | payer MEDICARE, OTHER ==
[2021-05-20] MEDS ORDERED: GABAPENTIN 100 MG CAPSULE PO STA (18:48)
--- NOTE | 2021-05-20 18:49 | ED Physician Documentation ---
PD HPI HEADACHE - Stated complaint Stated Complaint: HEAD PX - Chief complaint Chief Complaint: Neuro - History obtained from History obtained from: Patient - Additional information Additional information: 70-year-old woman developed burning left-sided scalp or head pain starting 5 days ago. She has been [facility] 3 times in the interim. Per her she had blood work and a CT done which were normal. She had been given varying diagnoses including stress, potential shingles. She continues to have a headache. Was gradual in onset. Review of Systems Ten Systems: 10 systems reviewed and negative Constitutional: reports: Reviewed and negative Eyes: reports: Reviewed and negative Ears: reports: Reviewed and negative PD PAST MEDICAL HISTORY - Past Medical History Cardiovascular: Hypertension, High cholesterol, [place], Valve disorder Respiratory: None Neuro: None Endocrine/Autoimmune: Type 2 diabetes GI: Chronic constipation GIZZARD SKIN REMOVER: None : Other HEENT: Chronic vision loss Psych: Other Musculoskeletal: Osteoarthritis, Chronic back pain, Other Derm: Other - Past Surgical History Past Surgical History: No /GIZZARD SKIN REMOVER: Dilation and currettage, Other Cardiovascular:  - Present Medications Home Medications: Ambulatory Orders Medication Instructions Recorded Confirmed Metformin HCl 500 mg PO BIDWM 09/02/14 01/08/20 hydroCHLOROthiazide 12.5 mg PO DAILY 09/02/14 01/05/20 [Hydrochlorothiazide] Multivitamin [Multiple Vitamins] 1 tab PO DAILY 09/28/15 01/05/20 lisinopriL [Lisinopril] 10 mg PO DAILY 09/28/15 01/05/20 Amlodipine Besylate 10 mg PO DAILY 11/16/19 12/28/19 Fluticasone [Flonase] 1 sprays GRETEL DAILY PRN 11/16/19 12/28/19 Insulin Glargine [Lantus Solostar] 10 unit SQ QPM 11/16/19 01/05/20 Rosuvastatin Calcium 10 mg PO QPM 11/16/19 01/08/20 Acetaminophen [Tylenol] 325 mg PO Q4HR PRN tablet 01/08/20 Docusate Sodium 250Mg Capsule 250 - 500 mg PO DAILY capsule 01/08/20 [Colace 250Mg Capsule] Insulin Aspart [NovoLOG] 1 - 5 unit SUBQ 01/08/20 0800,1200,1700,2100 pen hydroCHLOROthiazide [Hydrodiuril] 12.5 mg PO DAILY capsule 01/08/20 lisinopriL [Zestril] 10 mg PO DAILY tablet 01/08/20 metFORMIN [Glucophage] 500 mg PO BIDWM tablet 01/08/20 Cyclobenzaprine [Flexeril] 10 mg PO TID PRN #10 tablet 03/10/20 Gabapentin [Neurontin] 300 mg PO TID PRN #30 cap 05/20/21 - Allergies Allergies/Adverse Reactions: Allergies Allergy/AdvReac Type Severity Reaction Status Date / Time cinnamon [Cinnamon] Allergy Anaphylaxis Verified 05/20/21 18:01 contact metal agent AdvReac Hives Verified 05/20/21 18:01 - Social History Does the pt smoke?: Yes Smoking Status: Current every day smoker Does the pt drink ETOH?: No Does the pt have substance abuse?: No - Immunizations Immunizations are current?: Yes PD ED PE NORMAL - Vitals Vital signs reviewed: Yes - General General: Alert and oriented X 3, No acute distress - HEENT HEENT: PERRL, EOMI, Other (I do not currently see any changes on the left side of the scalp that would be consistent with shingles. TM is normal. No temporal tenderness. She does appear to have exophthalmos.) - Neck Neck: Supple, no meningeal sign, No bony TTP - Neuro Neuro: Alert and oriented X 3, Normal speech - Psych Psych: Normal mood, Normal affect Results - Vitals Vitals: Vital Signs - 24 hr 05/20/21 05/20/21 05/20/21 18:01 20:04 20:38 Temperature 36.5 C Heart Rate 89 77 68 Respiratory 16 16 16 Rate Blood Pressure 145/70 H 144/79 H 145/69 H O2 Saturation 97 98 99 Oxygen O2 Source Room air - Labs Labs: Laboratory Tests 05/20/21 05/20/21 05/20/21 19:06 19:06 19:06 WBC 9.7 RBC 5.00 Hgb 13.3 Hct 42.1 MCV 84.2 MCH 26.6 L MCHC 31.6 L RDW 14.6 Plt Count 293 MPV 9.8 Neut # (Auto) 4.7 Lymph # (Auto) 4.1 H [place] # (Auto) 0.7 Eos # (Auto) 0.2 Baso # (Auto) 0.1 Absolute Nucleated RBC 0.00 Nucleated RBC % 0.0 ESR 9 Sodium 139 Potassium 4.0 Chloride 102 Carbon Dioxide 27 Anion Gap 10.0 BUN 30 H Creatinine 1.5 H Estimated GFR (MDRD) 42 L Glucose 125 H Calcium 9.1 C-Reactive Protein 1.5 H TSH Thyroxine (T4) 05/20/21 19:06 WBC RBC Hgb Hct MCV MCH MCHC RDW Plt Count MPV Neut # (Auto) Lymph # (Auto) [place] # (Auto) Eos # (Auto) Baso # (Auto) Absolute Nucleated RBC Nucleated RBC % ESR Sodium Potassium Chloride Carbon Dioxide Anion Gap BUN Creatinine Estimated GFR (MDRD) Glucose Calcium C-Reactive Protein TSH 1.27 Thyroxine (T4) 9.30 PD MEDICAL DECISION MAKING - ED course ED course: 70-year-old woman with left-sided scalp/headache. Inflammatory markers are not consistent with giant cell arteritis. Reportedly had normal CT scanning for this already. Nothing in the history or physical to suggest subarachnoid hemorrhage or meningitis. She wonders if she might have early shingles but I do not see evidence of this but she did have good relief here with gabapentin. Departure - Departure Disposition: 01 Home, Self Care Clinical Impression: Headache Qualifiers: Headache type: unspecified Headache chronicity pattern: acute headache Intractability: not intractable Qualified Code(s): R51.9 - Headache, unspecified Condition: Good Record reviewed to determine appropriate education?: Yes Instructions: ED Cephalgia Unspecified Prescriptions: Gabapentin [Neurontin] 300 mg PO TID PRN #30 cap PRN Reason: Headache Comments: Call your doctor to arrange a follow-up appointment, make the next available appointment. In the interim, return anytime if worse or if new symptoms develop. Forms: Activity restrictions Discharge Date/Time: 05/20/21 20:38
[2021-05-20 19:11] LABS: BASOPHILS # (AUTO) 0.1 10^3/uL (0.0-0.1); BASOPHILS % (AUTO) 0.6 %; EOSINOPHILS # (AUTO) 0.2 10^3/uL (0.0-0.7); EOSINOPHILS % (AUTO) 2.1 %; HCT - HEMATOCRIT 42.1 % (37.0-47.0); HGB - HEMOGLOBIN 13.3 g/dL (12.0-16.0); LYMPHOCYTES # (AUTO) 4.1 10^3/uL (1.5-3.5); LYMPHOCYTES % (AUTO) 41.8 %; MEAN CORPUSCULAR HEMOGLOBIN 26.6 pg (27.0-31.0); MEAN CORPUSCULAR HGB CONC 31.6 g/dL (32.0-36.0); MEAN CORPUSCULAR VOLUME 84.2 fL (81.0-99.0); MEAN PLATELET VOLUME 9.8 fL (7.9-10.8); MONOCYTES # (AUTO) 0.7 10^3/uL (0.0-1.0); MONOCYTES % (AUTO) 7.2 %; NEUTROPHILS # (AUTO) 4.7 10^3/uL (1.5-6.6); PLT - PLATELET COUNT 293 10^3/uL (130-450); RED CELL DISTRIBUTION WIDTH 14.6 % (12.0-15.0); WHITE BLOOD COUNT 9.7 x10^3/uL (4.8-10.8)
[2021-05-20 19:31] LABS: CALCIUM 9.1 mg/dL (8.5-10.3); CREATININE 1.5 mg/dL (0.4-1.0); CRP - C-REACTIVE PROTEIN 1.5 mg/dL (0-1.0)
[2021-05-20 19:37] LABS: T4 (THYROXINE) 9.3 ug/dL (6.09-12.23)
[2021-05-20 19:41] LABS: THYROID STIMULATING HORMONE 1.27 uIU/mL (0.34-5.60)
[2021-05-20 20:52] VITALS: BP 145/69
== END 2021-05-20 20:38 | disposition home or self-care (01) ==
LOC: ED 17:54
DX: R51.9 Headache, unspecified (principal); E11.9 Type 2 diabetes mellitus without complications; Z79.4 Long term (current) use of insulin; I10 Essential (primary) hypertension; F17.200 Nicotine dependence, unspecified, uncomplicated
CPT/HCPCS: 36415; 80048; 84436; 84443; 85025; 85651; 86140; 99283; 99284; A9270

== ENCOUNTER 2021-06-24 14:40 | Outpatient (CLI) | payer MEDICARE, OTHER ==
--- NOTE | 2021-06-24 16:07 | Ultrasound Report ---
PROCEDURE: Duplex Lwr Ext Arterial RT INDICATIONS: RIGHT ANKLE SWELLING TECHNIQUE: Color and pulse Doppler interrogation was performed of the right lower extremity arterial system, wit h image documentation. COMPARISON: None FINDINGS: Common femoral artery: 124.2 cm/sec, with triphasic flow. Deep femoral artery: 135.5 cm/sec, with biphasic flow. Proximal superficial femoral artery: 137.8 cm/sec, with triphasic flow. Mid superficial femoral artery: 95.7 cm/sec, with triphasic flow. Distal superficial femoral artery: 141.2 cm/sec, with monophasic flow. Popliteal artery: 99.1 cm/sec, with monophasic flow. Posterior tibial artery: 156.1 cm/sec, with monophasic flow. Anterior tibial artery/dorsalis pedis: 98.2/66.8 cm/sec, with monophasic/triphasic flow. Pettit-scale imaging description: Calcific atherosclerosis with prominent plaques seen in the right co mmon femoral artery and superficial femoral artery. IMPRESSION: Less than 50% stenosis by flow velocity criteria seen in the proximal superficial femoral artery, dis malcolm superficial femoral artery, and posterior tibialis artery most evidently. Reviewed by: Norbert Palmer on 06/24/2021 3:05 PM YONATAN Approved by: Norbert Palmer on 06/24/2021 3:05 PM YONATAN Station ID: [id number]
== END 2021-06-24 14:41 | disposition home or self-care (01) ==
LOC: DI 14:40
PROVIDERS: ATTEND Urology
DX: M25.471 Effusion, right ankle (principal)

== ENCOUNTER 2021-07-06 12:37 | Outpatient (CLI) | payer MEDICARE, OTHER ==
--- NOTE | 2021-07-06 15:07 | XRAY Report ---
PROCEDURE: Foot 3 View RT INDICATIONS: RIGHT FOOT/ANKLE PAIN AND SWELLING TECHNIQUE: 3 views of the foot were acquired. COMPARISON: None FINDINGS: Bones: No fractures or dislocations. No suspicious bony lesions. Mild articular osteophyte formati on at the first metatarsophalangeal joint. Calcaneal spurring is present. Soft tissues: No tibiotalar joint effusion. Achilles tendon appears normal. IMPRESSION: 1. First metatarsophalangeal joint osteoarthritis. 2. Calcaneal spurring which may indicate Achilles tendinopathy and/or plantar fasciitis. This could b e further assessed with MRI, if clinically indicated. Reviewed by: Elyssa Gabriel MD on 07/06/2021 3:06 PM PDT Approved by: Elyssa Gabriel MD on 07/06/2021 3:06 PM PDT Station ID: [id number]
--- NOTE | 2021-07-06 15:58 | XRAY Report ---
PROCEDURE: Ankle 3 View RT INDICATIONS: RIGHT FOOT/ANKLE PAIN AND SWELLING TECHNIQUE: 3 views of the ankle were acquired. COMPARISON: None FINDINGS: Bones: No fractures or dislocations. Ankle mortise is normally aligned. No suspicious bony lesions . Small dorsal calcaneal enthesophyte is noted. Soft tissues: Mild ankle soft tissue swelling is seen. No tibiotalar joint effusion. Achilles tendo n appears normal. IMPRESSION: Mild ankle soft tissue swelling. No ankle fracture or dislocation. Small dorsal calcanea l enthesophyte. Reviewed by: Jerome Richmond MD on 07/06/2021 3:56 PM PDT Approved by: Jerome Richmond MD on 07/06/2021 3:56 PM PDT Station ID: [id number]
== END 2021-07-06 12:38 | disposition home or self-care (01) ==
LOC: DI.N 12:37
PROVIDERS: ATTEND Physician Assistant
DX: M19.071 Primary osteoarthritis, right ankle and foot (principal); M77.31 Calcaneal spur, right foot; R22.41 Localized swelling, mass and lump, right lower limb

== ENCOUNTER 2021-07-24 23:56 | Emergency (ER) | payer MEDICARE, OTHER ==
[2021-07-25] MEDS ORDERED: oxyCODONE/ACET 5/325 Prepack 4 PO STA (00:29)
--- NOTE | 2021-07-25 00:48 | ED Physician Documentation ---
History of Present Illness - Stated complaint Stated Complaint: RT FOOT PX - Chief complaint Chief Complaint: Trauma Ext - History obtained from History obtained from: Patient - Additonal information Additional information: 71-year-old womanPresents with right foot pain for the past month that is atraumatic to her knowledge. Patient has seen multiple doctors and had x-rays and ultrasounds done without any apparent cause. She comes in tonight because she is having persistent mild to moderate pain. Pain is localized to the outer right ankle, nonradiating, associated with very mild swelling. Patient is ambulatory on the foot without difficulty. No erythema or warmth. Review of Systems Constitutional: denies: Fever Musculoskeletal: reports: Extremity pain, Joint pain Neurologic: denies: Focal weakness, Numbness PD PAST MEDICAL HISTORY - Past Medical History Past Medical History: Yes Cardiovascular: Hypertension, High cholesterol, [place], Valve disorder Respiratory: None Neuro: None Endocrine/Autoimmune: Type 2 diabetes GI: Chronic constipation ROTOR PILOT: None : Other HEENT: Chronic vision loss Psych: Other Musculoskeletal: Osteoarthritis, Chronic back pain, Other Derm: Other - Past Surgical History Past Surgical History: No /ROTOR PILOT: Dilation and currettage, Other Cardiovascular:  - Present Medications Home Medications: Ambulatory Orders Medication Instructions Recorded Confirmed Metformin HCl 500 mg PO BIDWM 09/02/14 07/25/21 hydroCHLOROthiazide 12.5 mg PO DAILY 09/02/14 07/25/21 [Hydrochlorothiazide] Multivitamin [Multiple Vitamins] 1 tab PO DAILY 09/28/15 07/25/21 lisinopriL [Lisinopril] 10 mg PO DAILY 09/28/15 07/25/21 Amlodipine Besylate 10 mg PO DAILY 11/16/19 07/25/21 Fluticasone [Flonase] 1 sprays GRETEL DAILY PRN 11/16/19 07/25/21 Insulin Glargine [Lantus Solostar] 10 unit SQ QPM 11/16/19 07/25/21 Rosuvastatin Calcium 10 mg PO QPM 11/16/19 07/25/21 Acetaminophen [Tylenol] 325 mg PO Q4HR PRN tablet 01/08/20 07/25/21 Docusate Sodium 250Mg Capsule 250 - 500 mg PO DAILY capsule 01/08/20 07/25/21 [Colace 250Mg Capsule] Insulin Aspart [NovoLOG] 1 - 5 unit SUBQ 01/08/20 07/25/21 0800,1200,1700,2100 pen hydroCHLOROthiazide [Hydrodiuril] 12.5 mg PO DAILY capsule 01/08/20 07/25/21 lisinopriL [Zestril] 10 mg PO DAILY tablet 01/08/20 07/25/21 metFORMIN [Glucophage] 500 mg PO BIDWM tablet 01/08/20 07/25/21 Cyclobenzaprine [Flexeril] 10 mg PO TID PRN #10 tablet 03/10/20 07/25/21 Gabapentin [Neurontin] 300 mg PO TID PRN #30 cap 05/20/21 07/25/21 - Allergies Allergies/Adverse Reactions: Allergies Allergy/AdvReac Type Severity Reaction Status Date / Time cinnamon [Cinnamon] Allergy Anaphylaxis Verified 07/24/21 23:59 contact metal agent AdvReac Hives Verified 07/24/21 23:59 - Social History Does the pt smoke?: Yes Smoking Status: Current every day smoker Does the pt drink ETOH?: No Does the pt have substance abuse?: No - Immunizations Immunizations are current?: Yes PD ED PE NORMAL - Vitals Vital signs reviewed: Yes - General General: Alert and oriented X 3, No acute distress, Well developed/nourished - HEENT HEENT: Atraumatic, PERRL, EOMI - Derm Derm: Normal color, Warm and dry - Extremities Extremities: No deformity, Other (R ankle discomfort with ROM. R lateral malleolus discomfort with palpation. 2+ DP pulses BL. normal strength and sensation) Results - Vitals Vitals: Vital Signs - 24 hr 07/25/21 07/25/21 07/25/21 00:00 00:02 01:14 Temperature 36.2 C L 36.2 C L 36.2 C L Heart Rate 99 99 88 Respiratory 18 18 18 Rate Blood Pressure 151/102 H 151/102 H 145/91 H O2 Saturation 96 96 97 Oxygen O2 Source Room air PD MEDICAL DECISION MAKING - ED course ED course: Advised patient on symptom management, provided work note and ortho referral. patient asked for MRI and I discussed that she will need to f/u with her primary doctor in regards to this. Pain medication provided and return precautions given. Departure - Departure Disposition: 01 Home, Self Care Clinical Impression: Ankle pain Condition: Good Instructions: ED RICE Follow-Up: Driss Bernardo MD [Provider Admit Priv/Credential] - Comments: You were seen in the emergency department for right ankle pain for the past month. Your repeat x-rays did not show a break in the bone. Please follow-up with your primary doctor for further evaluation. We also are providing an orthopedics referral. Return to the emergency department if you have any new or worsening symptoms or other concerns. Forms: Activity restrictions Discharge Date/Time: 07/25/21 01:14
--- NOTE | 2021-07-25 01:00 | XRAY Report ---
PROCEDURE: Ankle 3 View RT INDICATIONS: ankle pain X 1 month TECHNIQUE: 3 views of the ankle were acquired. COMPARISON: 07/06/2021 FINDINGS: Bones: No acute or subacute fractures or dislocations. Ankle mortise is normally aligned. No suspi cious bony lesions. Retrocalcaneal enthesophyte unchanged. Small cortical irregularity at the lateral base of the right fifth metatarsal also unchanged. No reactive changes of subacute fracture healing. Soft tissues: No tibiotalar joint effusion. Achilles tendon appears normal. Mild persistent soft ti ssue swelling. IMPRESSION: Stable radiographic evaluation of the right ankle. No acute or subacute fractures seen. Mild persistent soft tissue swelling most pronounced over the plantar surface of the posterior ankle/ heel. If there is continued clinical concern for pathology or occult fracture, consider follow-up imaging w ith advanced imaging (CT, MRI, bone scan) if symptoms persist. Reviewed by: Dontae Esquivel MD on 07/25/2021 12:59 AM PDT Approved by: Dontae Esquivel MD on 07/25/2021 12:59 AM PDT Station ID: [id number]
[2021-07-25 01:15] VITALS: BP 145/91
== END 2021-07-25 01:14 | disposition home or self-care (01) ==
LOC: ED 23:56
DX: M25.571 Pain in right ankle and joints of right foot (principal); I10 Essential (primary) hypertension; E11.9 Type 2 diabetes mellitus without complications; Z79.4 Long term (current) use of insulin; F17.200 Nicotine dependence, unspecified, uncomplicated
CPT/HCPCS: 99283

== ENCOUNTER 2022-02-21 08:00 | Outpatient (CLI) | payer MEDICARE, OTHER ==
[2022-02-21 18:00] LABS: BASOPHILS # (AUTO) 0.1 10^3/uL (0.0-0.1); BASOPHILS % (AUTO) 0.6 %; EOSINOPHILS # (AUTO) 0.2 10^3/uL (0.0-0.7); EOSINOPHILS % (AUTO) 2.6 %; HCT - HEMATOCRIT 39.3 % (37.0-47.0); HGB - HEMOGLOBIN 12.3 g/dL (12.0-16.0); LYMPHOCYTES # (AUTO) 2.7 10^3/uL (1.5-3.5); MEAN CORPUSCULAR HEMOGLOBIN 26.2 pg (27.0-31.0); MEAN CORPUSCULAR HGB CONC 31.3 g/dL (32.0-36.0); MEAN CORPUSCULAR VOLUME 83.6 fL (81.0-99.0); MEAN PLATELET VOLUME 11.1 fL (7.9-10.8); MONOCYTES # (AUTO) 0.7 10^3/uL (0.0-1.0); MONOCYTES % (AUTO) 7.7 %; NEUTROPHILS % (AUTO) 57.9 %; PLT - PLATELET COUNT 289 10^3/uL (130-450); RED CELL DISTRIBUTION WIDTH 14.4 % (12.0-15.0); WHITE BLOOD COUNT 8.7 x10^3/uL (4.8-10.8)
[2022-02-21 18:08] LABS: URIC ACID 4.9 mg/dL (2.6-7.2)
== END 2022-02-21 08:01 | disposition home or self-care (01) ==
LOC: LAB.N 08:00
PROVIDERS: ATTEND Registered Nurse
DX: M25.473 Effusion, unspecified ankle (principal)
CPT/HCPCS: 36415; 84550; 85025; 85651; 86140

== ENCOUNTER 2022-08-08 10:43 | Outpatient (CLI) | payer MEDICARE, OTHER ==
--- NOTE | 2022-08-09 09:42 | Mammography Report ---
BILATERAL DIGITAL SCREENING MAMMOGRAM 3D/2D: 08/08/2022 CLINICAL: Routine screening. Comparison is made to exams dated: 02/20/2021 mammogram, 01/31/2020 mammogram, 12/16/2019 mammogram, mammogram, 06/20/2014 mammogram, and 05/12/2013 mammogram - [facility]. There are scattered areas of fibroglandular density in both breasts (category b / 25%-50% glandular t issue). There are benign calcifications in the left breast. No significant masses, calcifications, or other findings are seen in either breast. There has been no significant interval change. IMPRESSION: BENIGN There is no mammographic evidence of malignancy. A 1 year screening mammogram is recommended. Based on the Tyrer Cuzick model (a risk assessment model) the patients lifetime risk is 2.7% and her 10 year risk is 2.0%. According to the ACR, ACS, and NCCN guidelines, an annual breast MRI exam gabi g with mammogram is recommended if the patients lifetime risk is 20% or greater. This exam was interpreted at Station ID: [id number]. NOTE: For mammograms, a report in lay terms will be sent to the patient. Approximately 15% of breast malignancies will not be visualized mammographically. In the management of a palpable breast mass, a negative mammogram must not discourage biopsy of a clinically suspicious lesion. Electronically Signed By: Dontae Anthony M.D. [email or web address]/[email or web address]:08/08/2022 17:51:07 ACR BI-RADS Category 2: Benign Finding(s) 3342F PARENCHYMAL PATTERN: (A) - The breast(s) demonstrate(s) scattered fibroglandular densities. BI-RADS CATEGORY: (2) - 2 RECOMMENDATION: (ANNUAL) - Recommend routine annual screening mammography. 20230809 1 year screening LATERALITY: (B)
== END 2022-08-08 10:44 | disposition home or self-care (01) ==
LOC: DI.N 10:43
PROVIDERS: ATTEND Physician Assistant
DX: Z12.31 Encounter for screening mammogram for malignant neoplasm of breast (principal)

== ENCOUNTER 2023-01-15 11:25 | Outpatient (CLI) | payer MEDICARE, OTHER ==
[2023-01-15 18:13] LABS: BASOPHILS % (AUTO) 0.2 %; EOSINOPHILS # (AUTO) 0.2 10^3/uL (0.0-0.7); EOSINOPHILS % (AUTO) 2.4 %; HCT - HEMATOCRIT 41.5 % (37.0-47.0); HGB - HEMOGLOBIN 12.7 g/dL (12.0-16.0); LYMPHOCYTES # (AUTO) 1.4 10^3/uL (1.5-3.5); LYMPHOCYTES % (AUTO) 15.9 %; MEAN CORPUSCULAR HEMOGLOBIN 25.8 pg (27.0-31.0); MEAN CORPUSCULAR HGB CONC 30.6 g/dL (32.0-36.0); MEAN CORPUSCULAR VOLUME 84.2 fL (81.0-99.0); MEAN PLATELET VOLUME 10.6 fL (7.9-10.8); MONOCYTES # (AUTO) 0.6 10^3/uL (0.0-1.0); MONOCYTES % (AUTO) 6.5 %; NEUTROPHILS # (AUTO) 6.5 10^3/uL (1.5-6.6); NEUTROPHILS % (AUTO) 74.7 %; PLT - PLATELET COUNT 286 10^3/uL (130-450); RED BLOOD COUNT 4.93 10^6/uL (4.20-5.40); RED CELL DISTRIBUTION WIDTH 15.3 % (12.0-15.0); WHITE BLOOD COUNT 8.7 x10^3/uL (4.8-10.8)
[2023-01-15 18:33] LABS: ALBUMIN 3.4 g/dL (3.2-5.5); ALBUMIN/GLOBULIN RATIO 1.1 (1.0-2.2); ALKALINE PHOSPHATASE 67 IU/L (42-121); ALT ALANINE AMINOTRANSFERASE 22 IU/L (10-60); AST ASPARTATE AMINOTRANSFERASE 23 IU/L (10-42); BILIRUBIN,TOTAL 0.4 mg/dL (0.2-1.0); BUN - BLOOD UREA NITROGEN 29 mg/dL (6-20); CARBON DIOXIDE - CO2 27 mmol/L (21-32); CHLORIDE 104 mmol/L (101-111); CHOL/HDL RATIO 3.4 (<4.4); CHOLESTEROL 143 mg/dL; CREATININE 1.1 mg/dL (0.4-1.0); GFR - MDRD 59 (>89); GLUCOSE 123 mg/dL (70-100); HDL CHOLESTEROL 42 mg/dL; LDL CHOLESTEROL,CALCULATED 76 mg/dL; LDL/HDL RATIO 1.8 (<4.4); POTASSIUM 4.1 mmol/L (3.5-5.0); SODIUM 138 mmol/L (135-145); TOTAL PROTEIN 6.5 g/dL (6.7-8.2); TRIGLYCERIDES 123 mg/dL; VLDL CHOLESTEROL 25 mg/dL
[2023-01-15 19:24] LABS: CREATININE,URINE 102.6 mg/dL; MICROALBUM/CREATININE RATIO,UR 1391.8 ug/mg (<30.0); MICROALBUMIN,URINE 142.8 mg/dL (0-300.0)
[2023-01-15 20:51] LABS: ESTIMATED AVERAGE GLUCOSE 137 mg/dL (70-100); HEMOGLOBIN A1c% 6.4 % (4.27-6.07)
== END 2023-01-15 11:26 | disposition home or self-care (01) ==
LOC: LAB.N 11:25
PROVIDERS: ATTEND Nurse Practitioner
DX: E11.9 Type 2 diabetes mellitus without complications (principal)
CPT/HCPCS: 36415; 80053; 80061; 82043; 82570; 83036; 83721; 85025

== ENCOUNTER 2023-05-26 12:16 | Outpatient (CLI) | payer MEDICARE, OTHER ==
[2023-05-26 21:44] LABS: ESTIMATED AVERAGE GLUCOSE 169 mg/dL (70-100); HEMOGLOBIN A1c% 7.5 % (4.27-6.07)
== END 2023-05-26 12:17 | disposition home or self-care (01) ==
LOC: LAB.N 12:16
PROVIDERS: ATTEND Nurse Practitioner
DX: E11.9 Type 2 diabetes mellitus without complications (principal)
CPT/HCPCS: 36415; 83036

== ENCOUNTER 2023-06-05 12:44 | Outpatient (CLI) | payer MEDICARE, OTHER ==
--- NOTE | 2023-06-05 16:01 | DEXA Report ---
PROCEDURE: Dexa Spine and/or Hip INDICATIONS: POSTMENOPAUSAL TECHNIQUE: Dual energy x-ray absorptiometry (DXA) was performed on a [employer] System. Regions measur ed are the AP Spine, femoral neck, and if needed forearm. COMPARISON: 02/20/2021 FINDINGS: Lumbar Spine: Bone Mineral Density 1.129 g/cm/cm,T score -0.4. Normal Left Femoral Neck: Bone Mineral Density 0.849 g/cm/cm, T score -1.4. Osteopenia Left Hip: Bone Mineral Density 0.96 g/cm/cm,T score -0.3. Normal (T score greater or equal to -1.0: NORMAL) (T score from -1.1 to -2.4: OSTEOPENIA) (T score less than or equal to -2.5 to: OSTEOPOROSIS) Impression: By WHO criteria, this patient has low bone density (osteopenia). Bone marrow density has increased 6. 3% in the interval since prior exam obtained 02/20/2021. Patients with diagnosis of osteoporosis or osteopenia should have regular bone mineral density assess ment. For those eligible for Medicare, routine testing is allowed once every 2 years. Testing frequ ency can be increased for patients who have rapidly progressing disease or for those who are receivin g medical therapy to restore bone mass. Reviewed by: Sherrie Maria MD, PhD on 06/05/2023 3:59 PM PDT Approved by: Sherrie Maria MD, PhD on 06/05/2023 3:59 PM PDT Station ID: [id number]
== END 2023-06-05 12:45 | disposition home or self-care (01) ==
LOC: DI 12:44
PROVIDERS: ATTEND Nurse Practitioner
DX: Z78.0 Asymptomatic menopausal state (principal); M85.88 Other specified disorders of bone density and structure, other site

== ENCOUNTER 2023-07-29 12:50 | Outpatient (CLI) | payer MEDICARE, OTHER ==
--- NOTE | 2023-07-29 16:25 | XRAY Report ---
PROCEDURE: Wrist 4 View LT INDICATIONS: WRIST JOINT PAIN LEFT TECHNIQUE: 3 views of the wrist were acquired. COMPARISON: Left hand radiographs 12/25/2017.. FINDINGS: Bones: No fractures or dislocations. Mild degenerative changes. No suspicious bony lesions. Soft tissues: No suspicious soft tissue calcifications or masses. IMPRESSION: No acute bony abnormality. Reviewed by: Gumaro Galindo MD on 07/29/2023 4:24 PM PDT Approved by: Gumaro Galindo MD on 07/29/2023 4:24 PM PDT Station ID: [id number]
== END 2023-07-29 12:51 | disposition home or self-care (01) ==
LOC: DI 12:50
PROVIDERS: ATTEND Nurse Practitioner
DX: M25.532 Pain in left wrist (principal)

== ENCOUNTER 2023-09-08 14:11 | Outpatient (CLI) | payer MEDICARE, OTHER ==
[2023-09-08 21:37] LABS: ESTIMATED AVERAGE GLUCOSE 143 mg/dL (70-100); HEMOGLOBIN A1c% 6.6 % (4.27-6.07)
== END 2023-09-08 14:12 | disposition home or self-care (01) ==
LOC: LAB.N 14:11
PROVIDERS: ATTEND Nurse Practitioner
DX: E11.9 Type 2 diabetes mellitus without complications (principal)
CPT/HCPCS: 36415; 83036

== ENCOUNTER 2023-12-11 14:46 | Outpatient (CLI) | payer MEDICARE, OTHER ==
[2023-12-11 20:53] LABS: ESTIMATED AVERAGE GLUCOSE 143 mg/dL (70-100); HEMOGLOBIN A1c% 6.6 % (4.27-6.07)
== END 2023-12-11 14:47 | disposition home or self-care (01) ==
LOC: LAB.N 14:46
PROVIDERS: ATTEND Nurse Practitioner
DX: E11.9 Type 2 diabetes mellitus without complications (principal)
CPT/HCPCS: 36415; 83036

== ENCOUNTER 2023-12-17 11:43 | Outpatient (CLI) | payer MEDICARE, OTHER ==
--- NOTE | 2023-12-17 13:27 | XRAY Report ---
PROCEDURE: Lumbar Spine 2-3V INDICATIONS: BACK PAIN, LOW TECHNIQUE: 3 views of the lumbar spine were acquired. COMPARISON: X-ray thoracic spine 12/17/2023 FINDINGS: Bones: 5 [id number] vertebrae are present. There is normal bony alignment. No vertebral body compression fractures. No suspicious bony lesions. Degenerative disc space narrowing is most promin ent at T12-L1 as well as foraminal narrowing at T12-L1, L1-L2 as well as L5-S1. Soft tissues: Overlying bowel gas pattern is normal. No suspicious soft tissue calcifications. IMPRESSION: Multilevel degenerative changes as above. Reviewed by: Karen Gold MD on 12/17/2023 1:26 PM PST Approved by: Karen Gold MD on 12/17/2023 1:26 PM [facility] Station ID: [id number]
--- NOTE | 2023-12-17 13:28 | XRAY Report ---
PROCEDURE: Thoracic Spine 2V INDICATIONS: THORACIC BACK PAIN TECHNIQUE: 2 views of the thoracic spine were acquired. COMPARISON: X-ray thoracolumbar spine 12/17/2023 FINDINGS: Bones: No fractures or dislocations. No suspicious bony lesions. 12 pairs of ribs are noted, and a ppear intact where visualized. Multilevel degenerative disc space narrowing are present. Scattered a nterior osteophytes are present. Soft tissues: No paravertebral stripe thickening. IMPRESSION: Multilevel disc space narrowing as well as anterior osteophytes. Reviewed by: Karen Gold MD on 12/17/2023 1:26 PM PST Approved by: Karen Gold MD on 12/17/2023 1:26 PM PST Station ID: [id number]
== END 2023-12-17 11:44 | disposition home or self-care (01) ==
LOC: DI.N 11:43
PROVIDERS: ATTEND Nurse Practitioner
DX: M47.814 Spondylosis without myelopathy or radiculopathy, thoracic region (principal); M25.78 Osteophyte, vertebrae; M47.816 Spondylosis without myelopathy or radiculopathy, lumbar region; M47.817 Spondylosis without myelopathy or radiculopathy, lumbosacral region

== ENCOUNTER 2024-02-09 13:58 | Outpatient (CLI) | payer MEDICARE, OTHER ==
--- NOTE | 2024-02-10 09:24 | Mammography Report ---
BILATERAL DIGITAL SCREENING MAMMOGRAM 3D/2D: 02/09/2024 CLINICAL: Routine screening. Comparison is made to exams dated: 08/08/2022 mammogram, 02/20/2021 mammogram, 01/31/2020 mammogram, mammogram, 08/25/2018 mammogram, and 06/20/2014 mammogram - [facility]. There are scattered areas of fibroglandular density in both breasts (category b / 25%-50% glandular t issue). There are benign calcifications in the left breast. No significant masses, calcifications, or other findings are seen in either breast. There has been no significant interval change. IMPRESSION: BENIGN There is no mammographic evidence of malignancy. A 1 year screening mammogram is recommended. Based on the Tyrer Cuzick model (a risk assessment model) the patient's lifetime risk is 2.5% and her 10 year risk is 2.0%. According to the ACR, ACS, and NCCN guidelines, an annual breast MRI exam gabi g with mammogram is recommended if the patient's lifetime risk is 20% or greater. This exam was interpreted at Station ID: [id number]. NOTE: For mammograms, a report in lay terms will be sent to the patient. Approximately 15% of breast malignancies will not be visualized mammographically. In the management of a palpable breast mass, a negative mammogram must not discourage biopsy of a clinically suspicious lesion. Electronically Signed By: Milagro willoughby/brigette:02/09/2024 17:00:47 letter sent: No_Letter ACR BI-RADS Category 2: Benign Finding(s) 3342F PARENCHYMAL PATTERN: (A) - The breast(s) demonstrate(s) scattered fibroglandular densities. BI-RADS CATEGORY: (2) - 2 RECOMMENDATION: (ANNUAL) - Recommend routine annual screening mammography. [id number] 1 year screening LATERALITY: (B)
== END 2024-02-09 13:59 | disposition home or self-care (01) ==
LOC: DI.N 13:58
PROVIDERS: ATTEND Nurse Practitioner
DX: Z12.31 Encounter for screening mammogram for malignant neoplasm of breast (principal); R92.323 Mammographic fibroglandular density, bilateral breasts; R92.1 Mammographic calcification found on diagnostic imaging of breast

== ENCOUNTER 2024-04-09 14:21 | Outpatient (CLI) | payer MEDICARE, OTHER ==
[2024-04-09 18:02] LABS: BASOPHILS # (AUTO) 0.1 10^3/uL (0.0-0.1); BASOPHILS % (AUTO) 0.5 %; EOSINOPHILS # (AUTO) 0.4 10^3/uL (0.0-0.7); EOSINOPHILS % (AUTO) 4.3 %; HCT - HEMATOCRIT 37.6 % (37.0-47.0); HGB - HEMOGLOBIN 11.5 g/dL (12.0-16.0); LYMPHOCYTES # (AUTO) 3.4 10^3/uL (1.5-3.5); LYMPHOCYTES % (AUTO) 35.4 %; MEAN CORPUSCULAR HEMOGLOBIN 25.7 pg (27.0-31.0); MEAN CORPUSCULAR HGB CONC 30.6 g/dL (32.0-36.0); MEAN CORPUSCULAR VOLUME 84.1 fL (81.0-99.0); MONOCYTES # (AUTO) 0.7 10^3/uL (0.0-1.0); MONOCYTES % (AUTO) 7.5 %; NEUTROPHILS # (AUTO) 4.9 10^3/uL (1.5-6.6); PLT - PLATELET COUNT 311 10^3/uL (130-450); RED BLOOD COUNT 4.47 10^6/uL (4.20-5.40); RED CELL DISTRIBUTION WIDTH 15.5 % (12.0-15.0); WHITE BLOOD COUNT 9.5 x10^3/uL (4.8-10.8)
[2024-04-09 18:46] LABS: CREATININE,URINE 72.3 mg/dL
[2024-04-09 18:52] LABS: ALBUMIN 3.9 g/dL (3.2-5.5); ALBUMIN/GLOBULIN RATIO 1.4 (1.0-2.2); ALKALINE PHOSPHATASE 69 IU/L (42-121); ALT ALANINE AMINOTRANSFERASE 18 IU/L (10-60); AST ASPARTATE AMINOTRANSFERASE 20 IU/L (10-42); BILIRUBIN,TOTAL 0.4 mg/dL (0.2-1.0); BUN - BLOOD UREA NITROGEN 45 mg/dL (6-20); CALCIUM 9.6 mg/dL (8.5-10.3); CARBON DIOXIDE - CO2 26 mmol/L (21-32); CHLORIDE 105 mmol/L (101-111); CHOL/HDL RATIO 3.2 (<4.4); CHOLESTEROL 123 mg/dL; CREATININE 1.6 mg/dL (0.6-1.3); GFR - MDRD 38 (>89); GLUCOSE 116 mg/dL (74-104); HDL CHOLESTEROL 38 mg/dL; LDL CHOLESTEROL,CALCULATED 25 mg/dL; LDL/HDL RATIO 0.7 (<4.4); POTASSIUM 4.3 mmol/L (3.5-4.5); SODIUM 139 mmol/L (135-145); TOTAL PROTEIN 6.7 g/dL (6.4-8.9); TRIGLYCERIDES 299 mg/dL (48-352); VLDL CHOLESTEROL 60 mg/dL
[2024-04-09 19:00] LABS: THYROID STIMULATING HORMONE 0.84 uIU/mL (0.34-5.60)
[2024-04-09 19:03] LABS: MICROALBUM/CREATININE RATIO,UR 695.7 ug/mg (<30.0); MICROALBUMIN,URINE 50.3 mg/dL
[2024-04-09 20:30] LABS: ESTIMATED AVERAGE GLUCOSE 134 mg/dL (70-100); HEMOGLOBIN A1c% 6.3 % (4.27-6.07)
== END 2024-04-09 14:22 | disposition home or self-care (01) ==
LOC: LAB.N 14:21
PROVIDERS: ATTEND Nurse Practitioner
DX: I10 Essential (primary) hypertension (principal); E78.1 Pure hyperglyceridemia; E11.9 Type 2 diabetes mellitus without complications
CPT/HCPCS: 36415; 80053; 80061; 82043; 82570; 83036; 83721; 84443; 85025

== ENCOUNTER 2024-05-11 14:28 | Outpatient (CLI) | payer MEDICARE, OTHER ==
[2024-05-11 18:54] LABS: ALBUMIN 4.1 g/dL (3.2-5.5); ALBUMIN/GLOBULIN RATIO 1.4 (1.0-2.2); BILIRUBIN,TOTAL 0.4 mg/dL (0.2-1.0); CREATININE 1.6 mg/dL (0.6-1.3); POTASSIUM 3.7 mmol/L (3.5-4.5); TOTAL PROTEIN 7.1 g/dL (6.4-8.9)
== END 2024-05-11 14:29 | disposition home or self-care (01) ==
LOC: LAB.N 14:28
PROVIDERS: ATTEND Nurse Practitioner
DX: E11.9 Type 2 diabetes mellitus without complications (principal); Z51.81 Encounter for therapeutic drug level monitoring; Z79.899 Other long term (current) drug therapy
CPT/HCPCS: 36415; 80053